=== PATIENT | male | born 1960 | race Caucasian/White ===

== ENCOUNTER 2019-09-25 11:32 | Emergency (ER) | payer OTHER ==
[~2019-09-25] VITALS: Ht 182.9 cm; Wt 97.5 kg
--- OUTSIDE RECORDS SUMMARY | ~2019-09-25 | XMS | Encounter Summary ---
Demographics + + + | Address | [address] | | | [place] [address] | + + + | Home Phone | | + + + | Preferred Language | Unknown | + + + | Marital Status | | + + + | Zoroastrianism Affiliation | 1027 | + + + | Race | Unknown | + + + | Ethnic Group | Unknown | + + + Author + + + | Author | [facility] | | | and [place] | + + + | Organization | [facility] | | | and [place] | + + + | Address | Unknown | + + + | Phone | Unavailable | + + + Support + + + + + | Name | Relationship | Address | Phone | + + + + + | Katt Alejandro | ECON | [address] | | | | | [place] | | | | | [place] | | | | | [address] | | + + + + + Care Team Providers + +------+ + | Care Nuclear Physicist Name | Role | Phone | + +------+ + | Jhonny Jimenez MD | PCP | | + +------+ + Reason for Visit Auth/Cert +--------+--------+ + + + + | Status | Reason | Specialty | Diagnoses / | Referred By | Referred To | | | | | Procedures | Contact | Contact | +--------+--------+ + + + + | | | | Diagnoses | | | | | | | Primary | | | | | | | osteoarthrit | | | | | | | is of right | | | | | | | knee | | | | | | | Primary | | | | | | | osteoarthrit | | | | | | | is of right | | | | | | | knee | | | | | | | [M17.11] | | | | | | | Procedures | | | | | | | [place] TOTAL | | | | | | | KNEE | | | | | | | ARTHROPLASTY | | | | | | | | | | | | | | ARTHROPLASTY | | | | | | | KNEE | | | +--------+--------+ + + + + Encounter Details +--------+ + + + + | Date | Type | Department | Care Team | Description | +--------+ + + + + | 09/07/ | Hospital | [facility] | Agus Steward, | Primary | | 2016 - | Encounter | [facility] | MD Juan DAVIS | osteoarthritis of | | | | [address] | [place] | right knee (Primary | | 09/10/ | | [place] [address] | [address] | Dx) | | 2015 | | [phone] | | | +--------+ + + + + Social History + +-------+ +--------+------+ | Tobacco Use | Types | Packs/Day | Years | Date | | | | | Used | | + +-------+ +--------+------+ | Never Smoker | | | | | + +-------+ +--------+------+ + +------+---+ + | Smokeless Tobacco: | Chew | | Quit: | | Former User | | | 05/15/19 | | | | | 16 | + +------+---+ + + + +---------+ + | Alcohol Use | Drinks/Week | oz/Week | Comments | + + +---------+ + | No | 0 Standard drinks | 0.0 | sober since 07/2013 | | | or equivalent | | | + + +---------+ + + + + | Sex Assigned at | Date Recorded | | | | + + + | Not on file | | + + + + + + + | Job Start Date | Occupation | Industry | + + + + | Not on file | Not on file | Not on file | + + + + + + + + | Travel History | Travel Start | Travel End | + + + + + + | No recent travel history available. | + + documented as of this encounter Last Filed Vital Signs + + + + + | Vital Sign | Reading | Time Taken | Comments | + + + + + | Blood Pressure | 117/59 | 09/11/2015 7:30 AM | | | | | PDT | | + + + + + | Pulse | 81 | 09/11/2015 7:30 AM | | | | | PDT | | + + + + + | Temperature | 36.6 C (97.9 F) | 09/11/2015 7:30 AM | | | | | PDT | | + + + + + | Respiratory Rate | 18 | 09/11/2015 7:30 AM | | | | | PDT | | + + + + + | Oxygen Saturation | 91% | 09/11/2015 7:30 AM | | | | | PDT | | + + + + + | Inhaled Oxygen | - | - | | | Concentration | | | | + + + + + | Weight | 108.9 kg (240 lb) | 2015 1:16 PM | | | | | PDT | | + + + + + | Height | 185.4 cm (6' 0.99") | 2015 1:16 PM | | | | | PDT | | + + + + + | Body Mass Index | 31.67 | 2015 1:16 PM | | | | | PDT | | + + + + + documented in this encounter Discharge Summaries Agus Steward MD - 09/10/2015 1:46 PM PDTFormatting of this note might be different fro m the original. DISCHARGE SUMMARY Pt. Name/Age/: Lebron Alejandro 55 y.o. 1960 Date of Admission: 2015 Date of Discharge: 09/11/2015 Admitting Physician: Agus Steward MD PCP: Jhonny Jimenez Discharging Physician: Agus Steward MD Primary Discharge Dx: S/p right total knee arthroplasty Secondary Discharge Dx: Patient Active Problem List Diagnosis Chronic hepatitis C without hepatic coma Essential hypertension Colon cancer screening Primary osteoarthritis of right knee Hospital Course, including Complications: patient tolerated the procedure well and was mobi lized on the first postop day His wound is clean and dry and dressings changed to aquacel. He feels he is able to do outp atient physical therapy without needing home health He is on xarelto and won't need nursing for inr checks and he declines cpm Will start outpatient PT with [facility] upon discharge. Walker and shower chair scrips Pertinent Diagnostic Info/Data: Medications Reconciled upon Discharge are: Discharge Medications New Medications Details docusate sodium 100 MG capsule Take 200 mg by mouth 2 times daily. aka: COLACE HYDROcodone-acetaminophen 10-325 mg per tablet Take 1-2 tablets by mouth every 4 hours as needed for Pain. aka: NORCO oxyCODONE 5 mg tablet Take 1 tablet by mouth every 3 hours as needed for Pain. aka: ROXICODONE rivaroxaban 10 mg tablet Take 1 tablet by mouth Daily. aka: CHIKA Mull[facility] [place] SUPPORTING STATEMENTS OF MEDICAL NECESSITY AND PROGNOSIS: - Pt has a mobility limitation that significantly impairs her ability to participate in one or more mobility-related activities of daily living (MRADLs) in customary locations in the home. Patient Safety: has demonstrated the ability to safely use the equipment listed below . Use of the equipment listed below sufficiently resolves the MRADL deficit when performed in home. Unchanged Medications Details lisinopril 40 MG tablet Take 40 mg by mouth Daily. aka: WILLIAM NUÑEZ Condition on Discharge: Stable Disposition: Patient was discharged to home Follow-Up Plans: 10 days Code Status/Advance Directive (Pertinent discussions/declarations): Full Code Electronically signed by: Agus Steward, 09/11/2015 7:17 [facility] documented in this en counter Discharge Instructions Instructions Greta Liu, PharmD - 09/11/2015Can shower with the waterproof dressing i n place Keep working on range of motion stretches best you can on your own before therapy starts ou tpatient Call with any concerns Do not exceed 4,000 mg of acetaminophen (Tylenol) per day. Hydrocodone-acetaminophen ([place] ) and Oxycodone-acetaminophen (Percocet) have 325 mg acetaminophen per tablet. Regular stre ngth acetaminophen is 325 mg per tablet. Extra strength has 500 mg per tablet. Do not consume alcohol while taking prescription pain mediations. If constipation arises, try docusate-senna one tablet twice daily; milk of magnesia 30 mL o nce each night; or Miralax one capful (17 grams) dissolved in half a cup of water once daily for 3 days. If constipation does not resolve within 3 days after discharge, contact the do ribeiro's office. documented in this encounter Medications at Time of Discharge + + + +---------+ + + | Medication | Sig | Dispensed | Refills | Start | End Date | | | | | | Date | | + + + +---------+ + + | lisinopril | Take 40 mg by mouth | | 0 | | | | (PRINIVIL,ZESTRIL) | Daily. | | | | | | 40 MG tablet | | | | | | + + + +---------+ + + | docusate sodium | Take 200 mg by mouth | 60 | 0 | 09/11/19 | | | (COLACE) 100 MG | 2 times daily. | capsule | | 16 | 9 | | capsule | | | | | | + + + +---------+ + + | | Take 1-2 tablets by | 60 | 0 | 09/11/19 | | | HYDROcodone-acetamin | mouth every 4 hours | tablet | | 16 | 6 | | ophen (NORCO) 10-325 | as needed for Pain. | | | | | | mg per tablet | | | | | | + + + +---------+ + + | Misc. Devices | SUPPORTING | 1 each | 0 | 09/11/19 | | | (RAUL) MISC | STATEMENTS OF | | | 16 | 9 | | | MEDICAL NECESSITY | | | | | | | AND PROGNOSIS:Pt has | | | | | | | a mobility | | | | | | | limitation that | | | | | | | significantly | | | | | | | impairs her ability | | | | | | | to participate in | | | | | | | one or more | | | | | | | mobility-related | | | | | | | activities of daily | | | | | | | living (MRADLs) in | | | | | | | customary locations | | | | | | | in the home. | | | | | | | Patient Safety: has | | | | | | | demonstrated the | | | | | | | ability to safely | | | | | | | use the equipment | | | | | | | listed below. Use | | | | | | | of the equipment | | | | | | | listed below | | | | | | | sufficiently | | | | | | | resolves the MRADL | | | | | | | deficit when | | | | | | | performed in home. | | | | | + + + +---------+ + + | oxyCODONE | Take 1 tablet by | 60 | 0 | 09/11/19 | | | (ROXICODONE) 5 mg | mouth every 3 hours | tablet | | 16 | 6 | | tablet | as needed for Pain. | | | | | + + + +---------+ + + | rivaroxaban | Take 1 tablet by | 12 | 0 | 09/11/19 | | | (XARELTO) 10 mg | mouth Daily. | tablet | | 16 | 6 | | tablet | | | | | | + + + +---------+ + + documented as of this encounter Progress Notes Greta Liu, PharmD - 09/11/2015 11:51 AM Berenice Alejandro is s/p TKA and discharged home today (09/11/2015) Taught AVS education to patient. Educated patient on new blood thinner and pain medications . I explained indication, how to take, possible side effects, when to contact physician, and monitor parameters. We discussed rivaroxaban: S/S clotting (stroke/DVt/PE), bleeding (bruising, bleeding, GI/ ), and when to seek medical attention. Rivaroxaban patient education handout given to nate edmond The patient was encouraged to ambulate often and to participate in PT. We discussed not to exceed 4,000 mg of acetaminophen per day. Patient was advised not to co nsume alcohol while taking opioid mediations. We discussed normal bowel movements should be about 1 to 2 per week, if constipation should arise patient may try senna-s, milk of mag or Miralax OTC. The patient verbalized understanding of the above and all questions were answered. Emma camacho will follow-up with patient in one to two business days. Patient was provided with a lesly nciled discharge medication list as part of their AVS instructions. Encouraged patient to sh are medication list with healthcare providers and keep list current. Grtea Morrissey PHARMD 09/11/2015 11:51 Agus Herrera MD - 09/10/2015 7:45 AM PDT Patient doing well Filed Vitals: 09/10/15 0716 BP: 118/67 Pulse: 81 Temp: 37.1 C (98.8 F) Resp: 16 I/O last 3 completed shifts: In: 3141 [P.O.:2070; I.V.:976; IV Piggyback:95] Out: 1600 [Urine:1600] Dressings changed Knee wound clean and dry Calves nontender Flex/ext feet well Recent Results (from the past 24 hour(s)) Basic Metabolic Panel Result Value Ref Range NA 135 (L) 136-149 mmol/L K 4.1 3.5-5.1 mmol/L CL 103 98-109 mmol/L CO2 27 24-31 mmol/L ANION GAP 5 3-16 mmol/L GLUCOSE 119 (H) 70-109 mg/dL BUN 17 7-18 mg/dL Creatinine, Serum/Plasma 0.81 0.60-1.30 mg/dL eGFR if not >60 >=60 mL/min/1.73m2 CALCIUM 8.0 (L) 8.3-10.5 mg/dL BUN/CREA 21.0 POD 2 s/p right TKA Continue Pt Agus Herrera MD - 09/09/2015 7:13 AM PDTFormatting of this note might be different from the orig inal. Patient with no pain or nausea Filed Vitals: 09/09/15 0326 BP: 114/61 Pulse: 81 Temp: 35.7 C (96.3 F) Resp: 20 I/O last 3 completed shifts: In: 2417 [P.O.:450; I.V.:1702; IV Piggyback:265] Out: 400 [Urine:400] On exam dressings intact and dry Some motor return at the foot Recent Results (from the past 24 hour(s)) Basic Metabolic Panel Result Value Ref Range NA 137 136-149 mmol/L K 4.5 3.5-5.1 mmol/L CL 104 98-109 mmol/L CO2 26 24-31 mmol/L ANION GAP 7 3-16 mmol/L GLUCOSE 150 (H) 70-109 mg/dL BUN 20 (H) 7-18 mg/dL Creatinine, Serum/Plasma 0.95 0.60-1.30 mg/dL eGFR if not >60 >=60 mL/min/1.73m2 CALCIUM 8.9 8.3-10.5 mg/dL BUN/CREA 21.1 Hemoglobin and Hematocrit Result Value Ref Range Hgb 13.8 13.5-18.0 g/dL Hct 41.5 40.0-51.0 % PoD 1 s/p right total knee arthroplasty Mobilize with pT docu mented in this encounter Plan of Treatment Not on filedocumented as of this encounter Procedures + +--------+ + + + | Procedure Name | Priori | Date/Time | Associated Diagnosis | Comments | | | ty | | | | + +--------+ + + + | HEMOGLOBIN AND | Routin | 09/11/2015 | | Results for this | | HEMATOCRIT | e | 5:31 AM | | procedure are in the | | | | PDT | | results section. | + +--------+ + + + | BASIC METABOLIC | Routin | 09/11/2015 | | Results for this | | PANEL | e | 5:31 AM | | procedure are in the | | | | PDT | | results section. | + +--------+ + + + | HEMOGLOBIN AND | Routin | 09/10/2015 | | Results for this | | HEMATOCRIT | e | 5:54 AM | | procedure are in the | | | | PDT | | results section. | + +--------+ + + + | BASIC METABOLIC | Routin | 09/10/2015 | | Results for this | | PANEL | e | 5:54 AM | | procedure are in the | | | | PDT | | results section. | + +--------+ + + + | HEMOGLOBIN AND | Routin | 09/09/2015 | | Results for this | | HEMATOCRIT | e | 5:26 AM | | procedure are in the | | | | PDT | | results section. | + +--------+ + + + | BASIC METABOLIC | Routin | 09/09/2015 | | Results for this | | PANEL | e | 5:26 AM | | procedure are in the | | | | PDT | | results section. | + +--------+ + + + | ARTHROPLASTY KNEE | | 2015 | Primary | | | | | 2:16 PM | osteoarthritis of | | | | | PDT | right knee | | + +--------+ + + + +---+--------+ | | | | | Specia | | | l | | | Needs | | | Boom | | | Burak | | | / | | | Jack | | | ad | | | Mahnaz | | | - | | | Amarilis | +---+--------+ documented in this encounter Results Hemoglobin and Hematocrit (09/11/2015 5:31 AM PDT) + + + + + + | Component | Value | Ref Range | Performed | Pathologist | | | | | At | Signature | + + + + + + | Hemoglobin | 13.0 (L) | 13.5 - 18.0 | [facility] | | | | | g/dL | [facility] | | | | | | [facility] | | | | | | [facility] - | | | | | | LABORATORY | | + + + + + + | Hematocrit | 38.9 (L) | 40.0 - 51.0 % | [facility] | | | | | | [facility] | [facility] | | | | | | [facility] - | | | | | | LABORATORY | | + + + + + + + + | Specimen | + + | Blood | + + + + + + + | Performing | Address | City/State/Zipcode | Phone Number | | Organization | | | | + + + + + | [facility] | [address] | [place] | [phone] | | [facility] | | [address] | | | - LABORATORY | | | | + + + + + Basic Metabolic Panel (09/11/2015 5:31 AM PDT) + + + + + + | Component | Value | Ref Range | Performed | Pathologist | | | | | At | Signature | + + + + + + | Na | 135 (L) | 136 - 149 | [facility] | | | | | mmol/L | [facility] | | | | | | MEDICAL | | | | | | CENTER - | | | | | | LABORATORY | | + + + + + + | K | 4.1 | 3.5 - 5.1 | [facility] | | | | | mmol/L | [facility] | | | | | | [facility] | | | | | | CENTER - | | | | | | LABORATORY | | + + + + + + | Cl | 101 | 98 - 109 mmol/L | [facility] | | | | | | [facility] | | | | | | [facility]ICAL | | | | | | C[facility] - | | | | | | LABORATORY | | + + + + + + | CO2 | 31 | 24 - 31 mmol/L | [facility] | | | | | | [facility] | | | | | | [facility] | | | | | | C[facility] - | | | | | | LABORATORY | | + + + + + + | Anion Gap | 3 | 3 - 16 mmol/L | [facility] | | | | | | [facility] | | | | | | [facility] | | | | | | C[facility] - | | | | | | LABORATORY | | + + + + + + | Glucose | 110 (H) | 70 - 109 mg/dL | [facility] | | | | | | [facility] | | | | | | [facility] | | | | | | C[facility] - | | | | | | LABORATORY | | + + + + + + | BUN | 11 | 7 - 18 mg/dL | [facility] | | | | | | [facility] | | | | | | [facility] | | | | | | [facility] - | | | | | | LABORATORY | | + + + + + + | Creatinine | 0.87 | 0.60 - 1.30 | [facility] | | | | | mg/dL | [facility] | | | | | | MEDICAL | | | | | | CENTER - | | | | | | LABORATORY | | + + + + + + | eGFR if not | >60Comment: GLOMERULAR | >=60 | [facility] | | | | FILTRATION | mL/min/1.73m2 | [facility] | | | [place] | RATE,ESTIMATED | | MEDICAL | | | | mL/min/1.68l5Tmhw than | | CENTER - | | | | 60 Chronic kidney | | LABORATORY | | | | disease,if found over a | | | | | | 3-month period.Less than | | | | | | 15 Kidney failureFor | | | | | | | | | | | | Americans,multiply the | | | | | | calculated GFR by 1.21. | | | | | | | | | | + + + + + + | Calcium | 8.4 | 8.3 - 10.5 | [facility] | | | | | mg/dL | [facility] | | | | | | MEDICAL | | | | | | CENTER - | | | | | | LABORATORY | | + + + + + + | BUN/Creatin | 12.6 | | [facility] | | | ine Ratio | | | [facility] | | | | | | MEDICAL | | | | | | CENTER - | | | | | | LABORATORY | | + + + + + + + + | Specimen | + + | Blood | + + + + + + + | Performing | Address | City/State/Zipcode | Phone Number | | Organization | | | | + + + + + | [facility] | [address] | [place] | [phone] | | [facility] | | [address] | | | - LABORATORY | | | | + + + + + Hemoglobin and Hematocrit (09/10/2015 5:54 AM PDT) + + + + + + | Component | Value | Ref Range | Performed | Pathologist | | | | | At | Signature | + + + + + + | Hemoglobin | 13.0 (L) | 13.5 - 18.0 | [facility] | | | | | g/dL | [facility] | | | | | [facility] | | | | | | C[facility] - | | | | | | LABORATORY | | + + + + + + | Hematocrit | 38.1 (L) | 40.0 - 51.0 % | [facility] | | | | | | [facility] | | | | | | MEDICAL | | | | | | CENTER - | | | | | | LABORATORY | | + + + + + + + + | Specimen | + + | Blood | + + + + + + + | Performing | Address | City/State/Zipcode | Phone Number | | Organization | | | | + + + + + | [facility] | [address] | [place] | [phone] | | [facility] | | [address] | | | - LABORATORY | | | | + + + + + Basic Metabolic Panel (09/10/2015 5:54 AM PDT) + + + + + + | Component | Value | Ref Range | Performed | Pathologist | | | | | At | Signature | + + + + + + | Na | 135 (L) | 136 - 149 | [facility] | | | | | mmol/L | [facility] | | | | | | MEDICAL | | | | | | CENTER - | | | | | | LABORATORY | | + + + + + + | K | 4.1 | 3.5 - 5.1 | [facility] | | | | | mmol/L | [facility] | | | | | | MEDICAL | | | | | | CENTER - | | | | | | LABORATORY | | + + + + + + | Cl | 103 | 98 - 109 mmol/L | [facility] | | | | | | [facility] | | | | | | MEDICAL | | | | | | CENTER - | | | | | | LABORATORY | | + + + + + + | CO2 | 27 | 24 - 31 mmol/L | [facility] | | | | | | [facility] | | | | | | [facility] | | | | | | CENTER - | | | | | | LABORATORY | | + + + + + + | Anion Gap | 5 | 3 - 16 mmol/L | [facility] | | | | | | [facility] | | | | | | MEDICAL | | | | | | CENTER - | | | | | | LABORATORY | | + + + + + + | Glucose | 119 (H) | 70 - 109 mg/dL | [facility] | | | | | | [facility] | | | | | | MEDICAL | | | | | | CENTER - | | | | | | LABORATORY | | + + + + + + | BUN | 17 | 7 - 18 mg/dL | [facility] | | | | | | [facility] | | | | | | MEDICAL | | | | | | CENTER - | | | | | | LABORATORY | | + + + + + + | Creatinine | 0.81 | 0.60 - 1.30 | [facility] | | | | | mg/dL | [facility] | | | | | | MEDICAL | | | | | | CENTER - | | | | | | LABORATORY | | + + + + + + | eGFR if not | >60Comment: GLOMERULAR | >=60 | [facility] | | | | FILTRATION | mL/min/1.73m2 | [facility] | | | [place] | RATE,ESTIMATED | | MEDICAL | | | | mL/min/1.06j6Seth than | | CENTER - | | | | 60 Chronic kidney | | LABORATORY | | | | disease,if found over a | | | | | | 3-month period.Less than | | | | | | 15 Kidney failureFor | | | | | | | | | | | | Americans,multiply the | | | | | | calculated GFR by 1.21. | | | | | | | | | | + + + + + + | Calcium | 8.0 (L) | 8.3 - 10.5 | [facility] | | | | | mg/dL | [facility] | | | | | | MED[facility] | | | | | | CENTER - | | | | | | LABORATORY | | + + + + + + | BUN/Creatin | 21.0 | | [facility] | | | ine Ratio | | | [facility] | | | | | | MEDICAL | | | | | | CENTER - | | | | | | LABORATORY | | + + + + + + + + | Specimen | + + | Blood | + + + + + + + | Performing | Address | City/State/Zipcode | Phone Number | | Organization | | | | + + + + + | [facility] | [address] | [place] | [phone] | | [facility] | | [address] | | | - LABORATORY | | | | + + + + + Hemoglobin and Hematocrit (09/09/2015 5:26 AM PDT) + +-------+ + + + | Component | Value | Ref Range | Performed | Pathologist | | | | | At | Signature | + +-------+ + + + | Hemoglobin | 13.8 | 13.5 - 18.0 | [facility] | | | | | g/dL | [facility] | | | | | | MEDICAL | | | | | | CENTER - | | | | | | LABORATORY | | + +-------+ + + + | Hematocrit | 41.5 | 40.0 - 51.0 % | [facility] | | | | | | [facility] | | | | | | MEDICAL | | | | | | CENTER - | | | | | | LABORATORY | | + +-------+ + + + + + | Specimen | + + | Blood | + + + + + + + | Performing | Address | City/State/Zipcode | Phone Number | | Organization | | | | + + + + + | [facility] | [address] | [place] | [phone] | | [facility] | | [address] | | | - LABORATORY | | | | + + + + + Basic Metabolic Panel (09/09/2015 5:26 AM PDT) + + + + + + | Component | Value | Ref Range | Performed | Pathologist | | | | | At | Signature | + + + + + + | Na | 137 | 136 - 149 | [facility] | | | | | mmol/L | [facility] | | | | | | MEDICAL | | | | | | CENTER - | | | | | | LABORATORY | | + + + + + + | K | 4.5 | 3.5 - 5.1 | [facility] | | | | | mmol/L | [facility] | | | | | | MEDICAL | | | | | | CENTER - | | | | | | LABORATORY | | + + + + + + | Cl | 104 | 98 - 109 mmol/L | [facility] | | | | | | [facility] | | | | | | MEDICAL | | | | | | CENTER - | | | | | | LABORATORY | | + + + + + + | CO2 | 26 | 24 - 31 mmol/L | [facility] | | | | | | [facility] | | [facility] | | | MEDICAL | | | | | | CENTER - | | | | | | LABORATORY | | + + + + + + | Anion Gap | 7 | 3 - 16 mmol/L | [facility] | | | | | | [facility] | | | | | | [facility]ICAL | | | | | | CENTER - | | | | | | LABORATORY | | + + + + + + | Glucose | 150 (H) | 70 - 109 mg/dL | [facility] | | | | | | [facility] | | | | | | MEDICAL | | | | | | CENTER - | | | | | | LABORATORY | | + + + + + + | BUN | 20 (H) | 7 - 18 mg/dL | [facility] | | | | | | [facility] | | | | | | MEDICAL | | | | | | CENTER - | | | | | | LABORATORY | | + + + + + + | Creatinine | 0.95 | 0.60 - 1.30 | [facility] | | | | | mg/dL | [facility] | | | | | | MEDICAL | | | | | | CENTER - | | | | | | LABORATORY | | + + + + + + | eGFR if not | >60Comment: GLOMERULAR | >=60 | [facility] | | | | FILTRATION | mL/min/1.73m2 | [facility] | | | [place] | RATE,ESTIMATED | | MEDICAL | | | | mL/min/1.97a5Txpn than | | CENTER - | | | | 60 Chronic kidney | | LABORATORY | | | | disease,if found over a | | | | | | 3-month period.Less than | | | | | | 15 Kidney failureFor | | | | | | | | | | | | Americans,multiply the | | | | | | calculated GFR by 1.21. | | | | | | | | | | + + + + + + | Calcium | 8.9 | 8.3 - 10.5 | [facility] | | | | | mg/dL | [facility] | | | | | | [facility] | | | | | | CENTER - | | | | | | LABORATORY | | + + + + + + | BUN/Creatin | 21.1 | | [facility] | | | ine Ratio | | | [facility] | | | | | | MEDICAL | | | | | | CENTER - | | | | | | LABORATORY | | + + + + + + + + | Specimen | + + | Blood | + + + + + + + | Performing | Address | City/State/Zipcode | Phone Number | | Organization | | | | + + + + + | [facility] | [address] | [place] | [phone] | | [facility] | | [address] | | | - LABORATORY | | | | + + + + + documented in this encounter Visit Diagnoses + + | Diagnosis | + + | Primary osteoarthritis of right knee - Primary Primary localized osteoarthrosis, | | lower leg | + + documented in this encounter Admitting Diagnoses + + | Diagnosis | + + | Primary osteoarthritis of right knee Primary localized osteoarthrosis, lower leg | + + documented in this encounter Administered Medications + +---------+ +------+-------+------+ | Medication Order | MAR | Action | Dose | Rate | Site | | | Action | Date | | | | + +---------+ +------+-------+------+ | ceFAZolin (ANCEF, KEFZOL) 1 g | New Bag | 09/09/19 | 1 g | 100 | | | in sodium chloride 0.9% 50 mL | | 16 8:21 | | mL/hr | | | IVPB 1 g, Intravenous, | | AM PDT | | | | | Administer over 30 Minutes, EVERY | | | | | | | 6 HOURS (4 times per day), First | | | | | | | dose on Mon09/08/15 at 2000, For | | | | | | | 3 doses, Start 6 hours after | | | | | | | previous dose. Last dose to be | | | | | | | given within 24 hours of surgery | | | | | | | end time. Activate system and mix | | | | | | | before use., Post-op/Phase II, | | | | | | | Indications: Surgical Prophylaxis | | | | | | + +---------+ +------+-------+------+ +---------+ +-----+-------+---+ | New Bag | 09/09/19 | 1 g | 100 | | | | 16 3:33 | | mL/hr | | | | AM PDT | | | | +---------+ +-----+-------+---+ | New Bag | 09/08/19 | 1 g | 100 | | | | 16 8:58 | | mL/hr | | | | PM PDT | | | | +---------+ +-----+-------+---+ +---+---+ | | | +---+---+ + +-------+ +--------+---+---+ | docusate sodium (COLACE) | Given | 09/11/19 | 200 mg | | | | capsule 200 mg 200 mg, Oral, 2 | | 16 8:03 | | | | | TIMES DAILY, First dose on Mon | | AM PDT | | | | | 09/08/15 at 2100, First line agent | | | | | | | for constipation, Post-op/Phase | | | | | | | II | | | | | | + +-------+ +--------+---+---+ +-------+ +--------+---+---+ | Given | 09/10/19 | 200 mg | | | | | 16 8:09 | | | | | | PM PDT | | | | +-------+ +--------+---+---+ | Given | 09/10/19 | 200 mg | | | | | 16 8:10 | | | | | | AM PDT | | | | +-------+ +--------+---+---+ +---+---+ | | | +---+---+ + +-------+ +---------+---+---+ | HYDROcodone-acetaminophen | Given | 09/11/19 | 2 | | | | (NORCO) 10-325 mg per tablet 1-2 | | 16 10:05 | tablets | | | | tablet 1-2 tablet, Oral, EVERY 4 | | AM PDT | | | | | HOURS PRN, Pain, Starting Tue | | | | | | | 09/08/15 at 1745, If ineffective | | | | | | | or not tolerated use Oxycodone if | | | | | | | ordered., Post-op/Phase II | | | | | | + +-------+ +---------+---+---+ +-------+ +---------+---+---+ | Given | 09/11/19 | 2 | | | | | 16 5:58 | tablets | | | | | AM PDT | | | | +-------+ +---------+---+---+ | Given | 09/11/19 | 2 | | | | | 16 2:13 | tablets | | | | | AM PDT | | | | +-------+ +---------+---+---+ +---+---+ | | | +---+---+ + +---------+ +---+-------+---+ | lactated ringers (LR) infusion | New Bag | 09/08/19 | | 100 | | | at 10-100 mL/hr, Intravenous, | | 16 4:55 | | mL/hr | | | CONTINUOUS, Starting 09/08/15 | | PM PDT | | | | | at 1330, TKO., Pre-op | | | | | | + +---------+ +---+-------+---+ +---------+ +--------+-------+---+ | New Bag | 09/08/19 | 1,000 | 100 | | | | 16 1:23 | mLs | mL/hr | | | | PM PDT | | | | +---------+ +--------+-------+---+ +---+---+ | | | +---+---+ + +---------+ +--------+-------+---+ | lactated ringers (LR) infusion | New Bag | 09/08/19 | 1,000 | 100 | | | at 100 mL/hr, Intravenous, FIXED | | 16 10:40 | mLs | mL/hr | | | VOLUME (see admin instruction), | | PM PDT | | | | | Starting 09/08/15 at 1815, | | | | | | | Saline lock IV when taking po and | | | | | | | after 2 liters in, Post-op/Phase | | | | | | | II | | | | | | + +---------+ +--------+-------+---+ +---+---+ | | | +---+---+ + +-------+ +-------+---+---+ | lisinopril (PRINIVMARITZA ZUNIGAL) | Given | 09/11/19 | 40 mg | | | | tablet 40 mg 40 mg, Oral, DAILY, | | 16 8:03 | | | | | First dose on Mon09/09/15 at | | AM PDT | | | | | 0900, Post-op/Phase II | | | | | | + +-------+ +-------+---+---+ +-------+ +-------+---+---+ | Given | 09/10/19 | 40 mg | | | | | 16 8:10 | | | | | | AM PDT | | | | +-------+ +-------+---+---+ | Given | 09/09/19 | 40 mg | | | | | 16 8:20 | | | | | | AM PDT | | | | +-------+ +-------+---+---+ +---+---+ | | | +---+---+ + +-------+ +------+---+---+ | morphine injection 2-8 mg 2-8 | Given | 09/10/19 | 4 mg | | | | mg, Intravenous, EVERY 2 HOURS | | 16 4:01 | | | | | PRN, Pain, Starting Mon09/08/15 | | PM PDT | | | | | at 1745, Slow IV push, not faster | | | | | | | than 2 mg/minute. If ineffective | | | | | | | or not tolerated, use | | | | | | | hydromorphone IV if ordered., | | | | | | | Post-op/Phase II | | | | | | + +-------+ +------+---+---+ +-------+ +------+---+---+ | Given | 09/10/19 | 4 mg | | | | | 16 11:34 | | | | | | AM PDT | | | | +-------+ +------+---+---+ | Given | 09/09/19 | 4 mg | | | | | 16 1:04 | | | | | | PM PDT | | | | +-------+ +------+---+---+ +---+---+ | | | +---+---+ + +-------+ +-------+---+---+ | oxyCODONE (ROXICODONE) tablet | Given | 09/10/19 | 10 mg | | | | 5-10 mg 5-10 mg, Oral, EVERY 3 | | 16 6:36 | | | | | HOURS PRN, Pain, Starting Tue | | PM PDT | | | | | 09/08/15 at 1745, If ineffective | | | | | | | or not tolerated use | | | | | | | hydromorphone if ordered., | | | | | | | Post-op/Phase II | | | | | | + +-------+ +-------+---+---+ +-------+ +-------+---+---+ | Given | 09/10/19 | 10 mg | | | | | 16 10:59 | | | | | | AM PDT | | | | +-------+ +-------+---+---+ | Given | 09/09/19 | 10 mg | | | | | 16 9:39 | | | | | | PM PDT | | | | +-------+ +-------+---+---+ +---+---+ | | | +---+---+ + +-------+ +-------+---+---+ | rivaroxaban (XARELTO) tablet 10 | Given | 09/11/19 | 10 mg | | | | mg 10 mg, Oral, DAILY, First | | 16 8:03 | | | | | dose on Mon09/09/15 at 0700, | | AM PDT | | | | | Post-op/Phase II | | | | | | + +-------+ +-------+---+---+ +-------+ +-------+---+---+ | Given | 09/10/19 | 10 mg | | | | | 16 8:10 | | | | | | AM PDT | | | | +-------+ +-------+---+---+ | Given | 09/09/19 | 10 mg | | | | | 16 6:34 | | | | | | AM PDT | | | | +-------+ +-------+---+---+ +---+---+ | | | +---+---+ documented in this encounter
--- OUTSIDE RECORDS SUMMARY | ~2019-09-25 | XMS | Encounter Summary ---
Demographics + + + | Address | [address] | | | [place] [address] | + + + | Home Phone | | + + + | Preferred Language | Unknown | + + + | Marital Status | | + + + | Moravian Affiliation | 1027 | + + + | Race | Unknown | + + + | Ethnic Group | Unknown | + + + Author + + + | Author | [facility] | | | and [place] | + + + | Organization | [facility] | | | and [place] | + + + | Address | Unknown | + + + | Phone | Unavailable | + + + Support + + + + + | Name | Relationship | Address | Phone | + + + + + | Katt lAejandro | ECON | [address] | | | | | [place] | | | | | [place] | | | | | [address] | | + + + + + Care Team Providers + +------+ + | Care Solar Pv Installer Name | Role | Phone | + +------+ + | Jhonny Jimenez MD | PCP | | + +------+ + Reason for Visit + + + | Reason | Comments | + + + | Medication Refill | | + + + Encounter Details +--------+ + + + + | Date | Type | Department | Care Team | Description | +--------+ + + + + | 11/10/ | Telephone | [facility] | Agus Steward, | Medication Refill | | 2015 | | ORTHOPEDIC SURGERY | [address] | | | | | [address] | [place], [place] | | | | | [place], [place] | [address] | | | | | [address] | | | | | | [phone] | | | +--------+ + + + [...] + + documented as of this encounter Plan of Treatment Not on filedocumented as of this encounter Visit Diagnoses Not on filedocumented in this encounter"
--- OUTSIDE RECORDS SUMMARY | ~2019-09-25 | XMS | Encounter Summary ---
Demographics + + + | Address | [address] | | | [place] [address] | + + + | Home Phone | | + + + | Preferred Language | Unknown | + + + | Marital Status | | + + + | Restorationist Affiliation | 1027 | + + + | Race | Unknown | + + + | Ethnic Group | Unknown | + + + Author + + + | Author | [facility] | | | and [place] | + + + | Organization | [facility] | | | [...] [place] | | | | | [address] | | + + + + + Care Team Providers + +------+ + | Care Batch Freezer Name | Role | Phone | + +------+ + | Jhonny Jimenez MD | PCP | | + +------+ + Encounter Details +--------+ + + + + | Date | Type | Department | Care Team | Description | +--------+ + + + + | 09/14/ | Hospital | [facility] | [facility], | Chronic hepatitis C | | 2015 | Encounter | [facility] | [address] | without hepatic coma | | | | [address] [place] | [place] [address] | (HCC) | | | | [place], [place] | [place], [place] | | | | | [address] | [address] | | | | | [phone] | | | +--------+ + + + + Social History + +-------+ +--------+------+ | Tobacco Use | Types | Packs/Day | Years | Date | | | | | Used | | + +-------+ +--------+------+ | Never Smoker | | | | | + +-------+ +--------+------+ + +------+---+---+ | Smokeless Tobacco: | Chew | | | | Current User | | | | + +------+---+---+ + + +---------+ + | Alcohol Use | Drinks/Week | oz/Week | Comments | + + +---------+ + | No | | | sober since 07/2013 | + + +---------+ + + + [...] + + documented as of this encounter Medications at Time of Discharge + + + +---------+--------+ + | Medication | Sig | Dispensed | Refills | Start | End Date | | | | | | Date | | + + + +---------+--------+ + | lisinopril | Take 40 mg by mouth | | 0 | | | | (PRINIVIL,ZESTRIL) | Daily. | | | | | | 40 MG tablet | | | | | | + + + +---------+--------+ + | tadalafil (CIALIS) | Take 20 mg by mouth | | 0 | | | | 20 MG tablet | as needed for | | | | 6 | | | Erectile | | | | | | | Dysfunction. | | | | | + + + +---------+--------+ + documented as of this encounter Progress Notes Gregoria Hawkins ARNP - 09/23/2014 9:24 AM PDT Quick Note: Please schedule appointment. Thank you Zach Adam ARNP - 09/16/2014 9:14 AM PDT Quick Note: Will follow up after procedure. Please schedule appointment when done with colonoscopy and received results of Fibrosure. Thank you documented in this encounter Plan of Treatment Not on filedocumented as of this encounter Procedures + +--------+ + + + | Procedure Name | Priori | Date/Time | Associated Diagnosis | Comments | | | ty | | | | + +--------+ + + + | SANCHO QUAL, SCREEN | Routin | 09/14/2014 | Chronic hepatitis | Results for this | | | e | 11:07 AM | C without hepatic | procedure are in the | | | | PDT | coma (HCC) | results section. | + +--------+ + + + | HEPATITIS A IGG.IGM | Routin | 09/14/2014 | Chronic hepatitis | Results for this | | | e | 11:07 AM | C without hepatic | procedure are in the | | | | PDT | coma (HCC) | results section. | + +--------+ + + + | HEPATITIS C, | Routin | 09/14/2014 | Chronic hepatitis | Results for this | | FIBROSURE PANEL | e | 11:07 AM | C without hepatic | procedure are in the | | | | PDT | coma (HCC) | results section. | + +--------+ + + + | [id number], | Routin | 09/14/2014 | Chronic hepatitis | Results for this | | TOTAL | e | 11:07 AM | C without hepatic | procedure are in the | | | | PDT | coma (HCC) | results section. | + +--------+ + + + | HEPATITIS C RNA, | Routin | 09/14/2014 | Chronic hepatitis | Results for this | | QUANT, NAAT | e | 11:07 AM | C without hepatic | procedure are in the | | | | PDT | coma (HCC) | results section. | + +--------+ + + + | IRON AND TRANSFERRIN | Routin | 09/14/2014 | Chronic hepatitis | Results for this | | | e | 11:07 AM | C without hepatic | procedure are in the | | | | PDT | coma (HCC) | results section. | + +--------+ + + + | MITOCHONDRIAL AB | Routin | 09/14/2014 | Chronic hepatitis | Results for this | | | e | 11:07 AM | C without hepatic | procedure are in the | | | | PDT | coma (HCC) | results section. | + +--------+ + + + | CERULOPLASMIN | Routin | 09/14/2014 | Chronic hepatitis | Results for this | | | e | 11:07 AM | C without hepatic | procedure are in the | | | | PDT | coma (HCC) | results section. | + +--------+ + + + | ALPHA FETOPROTEIN, | Routin | 09/14/2014 | Chronic hepatitis | Results for this | | TUMOR MARKER | e | 11:07 AM | C without hepatic | procedure are in the | | | | PDT | coma (HCC) | results section. | + +--------+ + + + | HEPATITIS B CORE AB, | Routin | 09/14/2014 | Chronic hepatitis | Results for this | | IGM | e | 11:07 AM | C without hepatic | procedure are in the | | | | PDT | coma (HCC) | results section. | + +--------+ + + + | HEPATITIS C | Routin | 09/14/2014 | Chronic hepatitis | Results for this | | GENOTYPING | e | 11:07 AM | C without hepatic | procedure are in the | | | | PDT | coma (HCC) | results section. | + +--------+ + + + | SMOOTH MUSCLE AB | Routin | 09/14/2014 | Chronic hepatitis | Results for this | | | e | 11:07 AM | C without hepatic | procedure are in the | | | | PDT | coma (HCC) | results section. | + +--------+ + + + | HEPATITIS B SURFACE | Routin | 09/14/2014 | Chronic hepatitis | Results for this | | AB | e | 11:07 AM | C without hepatic | procedure are in the | | | | PDT | coma (HCC) | results section. | + +--------+ + + + | HEPATITIS B SURFACE | Routin | 09/14/2014 | Chronic hepatitis | Results for this | | AG | e | 11:07 AM | C without hepatic | procedure are in the | | | | PDT | coma (HCC) | results section. | + +--------+ + + + | PROTIME INR | Routin | 09/14/2014 | Chronic hepatitis | Results for this | | | e | 11:07 AM | C without hepatic | procedure are in the | | | | PDT | coma (HCC) | results section. | + +--------+ + + + | CBC WITH | Routin | 09/14/2014 | Chronic hepatitis | Results for this | | DIFFERENTIAL | e | 11:07 AM | C without hepatic | procedure are in the | | | | PDT | coma (HCC) | results section. | + +--------+ + + + | FERRITIN | Routin | 09/14/2014 | Chronic hepatitis | Results for this | | | e | 11:07 AM | C without hepatic | procedure are in the | | | | PDT | coma (HCC) | results section. | + +--------+ + + + | COMPREHENSIVE | Routin | 09/14/2014 | Chronic hepatitis | Results for this | | METABOLIC PANEL | e | 11:07 AM | C without hepatic | procedure are in the | | | | PDT | coma (HCC) | results section. | + +--------+ + + + documented in this encounter Results Hepatitis C Genotyping (09/14/2014 11:07 AM PDT) + + + + + + | Component | Value | Ref Range | Performed | Pathologist | | | | | At | Signature | + + + + + + | HCV | See CommentsComment: | | REFERENCE | | | Genotype by | Type 1aHCV genotype was | | [facility] | | | PCR | determined by RT-PCR and | | | | | | ferrocene labelled | | | | | | probe.This assay detects | | | | | | and differentiates the | | | | | | 6 major HCV genotypes | | | | | | andtheir most common | | | | | | subtypes (1a, 1b, 2a/c, | | | | | | 2b, 3, 4, 5, 6).This | | | | | | test was developed and | | | | | | its performance | | | | | | characteristics | | | | | | determinedby [facility] | | | | | | Division of Laboratory | | | | | | Medicine. It has not | | | | | | beenapproved or cleared | | | | | | by the U.S. Food and | | | | | | Drug Administration. | | | | | | Thistest should not be | | | | | | regarded as | | | | | | investigational or for | | | | | | research use.Testing | | | | | | Performed: [facility], [address] | | | | | | [address] [place] | | | | | | [address] | | | | + + + + + + + + | Specimen | + + | Blood specimen | | (specimen) | + + + + + | Narrative | Performed At | + + + | Most Recent Viral Load Result (copies/mL): >[id number] Date of Viral | REFERENCE LAB | | Load Testing: >05/24/12 | [facility] | + + + + + + + + | Performing | Address | City/State/Zipcode | Phone Number | | Organization | | | | + + + + + | [facility] | [address] | [place] [address] | [phone] | + + + + + Hepatitis C RNA, Quant, NAAT (09/14/2014 11:07 AM PDT) + + + + + + | Component | Value | Ref Range | Performed | Pathologist | | | | | At | Signature | + + + + + + | HCV Viral | 6.8 (A) | NOTDET Log | REFERENCE | | | Load, log10 | | IU/mL | [facility] | | + + + + + + | HCV Viral | [id number] (A)Comment: | NOTDET IU/mL | REFERENCE | | | Load | Reportable range HCV RNA | | [facility] | | | | 1.2 to 8.0 Log IU/mL | | | | | | (15 to | | | | | | 100,000,000IU/mL). | | | | | | This assay was performed | | | | | | using the FDA approved | | | | | | Ave | | | | | | COBASAmpliPrep/MARILYNN | | | | | | TaqMan HCV Test, v2.0. | | | | | | The MARILYNN | | | | | | AmpliPrep/COBASTaqMan | | | | | | HCV Test, v2.0 is not | | | | | | intended for use as a | | | | | | screening test forthe | | | | | | presence of HCV in blood | | | | | | or blood | | | | | | products.Testing | | | | | | Performed: [facility], [address] | | | | | | [address], [place] | | | | | | [address] | | | | + + + + + + + + | Specimen | + + | Blood specimen | | (specimen) | + + + + + + + | Performing | Address | City/State/Zipcode | Phone Number | | Organization | | | | + + + + + | [facility] | [address] | [place] [address] | [phone] | + + + + + Smooth Muscle Ab (09/14/2014 11:07 AM PDT) + + + + + + | Component | Value | Ref Range | Performed | Pathologist | | | | | At | Signature | + + + + + + | Smooth | See CommentsComment: | NEG | REFERENCE | | | Muscle Ab | NegativeReference Range: | | [facility] | | | | <1:40Testing Performed: | | | | | | [facility], [address], | | | | | | [place] [address] | | | | + + + + + + + + | Specimen | + + | Blood specimen | | (specimen) | + + + + + + + | Performing | Address | City/State/Zipcode | Phone Number | | Organization | | | | + + + + + | [facility] | [address] | [place] [address] | [phone] | + + + + + Protime INR (09/14/2014 11:07 AM PDT) + + + + + + | Component | Value | Ref Range | Performed | Pathologist | | | | | At | Signature | + + + + + + | Prothrombin | 13.5 | 11.3 - 13.9 | [facility] | | | Time | | seconds | [facility] | | | | | | [facility]ICAL | | | | | | CENTER - | | | | | | LABORATORY | | + + + + + + | INR | 1.03Comment: Usual Oral | 0.90 - 1.10 | [facility] | | | | Anticoagulation Range: | | [facility] | | | | 2.0 - 3.0High | | MEDICAL | | | | Level Oral | | CENTER - | | | | Anticoagulation Range: | | LABORATORY | | | | 2.5 - 3.5 | | | | + + + + + + + + | Specimen | + + | Blood | + + + + + + + | Performing | Address | City/State/Zipcode | Phone Number | | Organization | | | | + + + + + | [facility] | [address] | [place] | [phone] | | [facility] | | [address] | | | - LABORATORY | | | | + + + + + Mitochrondrial Ab (09/14/2014 11:07 AM PDT) + + + + + + | Component | Value | Ref Range | Performed | Pathologist | | | | | At | Signature | + + + + + + | MITOCHONDRI | See CommentsComment: | NEG | REFERENCE | | | AL AB | NegativeReference range: | | [facility] | | | | <1:20Testing Performed: | | | | | | [facility], [address], | | | | | | [place] [address] | | | | + + + + + + + + | Specimen | + + | Blood specimen | | (specimen) | + + + + + + + | Performing | Address | City/State/Zipcode | Phone Number | | Organization | | | | + + + + + | [facility] | [address] | [place] [address] | [phone] | + + + + + Iron and Transferrin (09/14/2014 11:07 AM PDT) + +---------+ + + + | Component | Value | Ref Range | Performed | Pathologist | | | | | At | Signature | + +---------+ + + + | Iron | 171 (H) | 50 - 160 ug/dL | [facility] | | | | | | [facility] | | | | | | MEDICAL | | | | | | CENTER - | | | | | | LABORATORY | | + +---------+ + + + | TRANSFERRIN | 265.0 | 240.0 - 480.0 | [facility] | | | | | mg/dL | [facility] | | | | | | MEDICAL | | | | | | CENTER - | | | | | | LABORATORY | | + +---------+ + + + | TIBC | 371 | ug/dL | [facility] | | | | | | [facility] | | | | | | MEDICAL | | | | | | CENTER - | | | | | | LABORATORY | | + +---------+ + + + | % | 46.1 | % | [facility] | | | SATURATION | | | [facility] | | | | | | MEDICAL | | | | | | CENTER - | | | | | | LABORATORY | | + +---------+ + + + + + | Specimen | + + | Blood | + + + + + + + | Performing | Address | City/State/Zipcode | Phone Number | | Organization | | | | + + + + + | [facility] | [address] | [place] | [phone] | | [facility] | | [address] | | | - LABORATORY | | | | + + + + + Hepatitis B Surface Ag (09/14/2014 11:07 AM PDT) + + + + + + | Component | Value | Ref Range | Performed | Pathologist | | | | | At | Signature | + + + + + + | Hepatitis B | Non ReactiveComment: | NR | REFERENCE | | | Surface Ag | Testing Performed: [facility], | | [facility] | | | | [address], | | | | | | [place] [address] | | | | + + + + + + + + | Specimen | + + | Blood specimen | | (specimen) | + + + + + + + | Performing | Address | City/State/Zipcode | Phone Number | | Organization | | | | + + + + + | [facility] | [address] | [place] [address] | [phone] | + + + + + Hepatitis B Surface Ab (09/14/2014 11:07 AM PDT) + + + + + + | Component | Value | Ref Range | Performed | Pathologist | | | | | At | Signature | + + + + + + | Hepatitis B | 51.8Comment: <10.0 | mIU/mL | [facility] | | | Surface Ab | Non | | [facility] | | | | Rwwfxa98.0 or greater | | | | | | Indicates vaccine | | | | | | response or response to | | | | | | HBVinfection.Samples | | | | | | with a calculated value | | | | | | of 10 mIU/mL or greater | | | | | | are consideredreactive | | | | | | (protective) in | | | | | | accordance with the CDC | | | | | | guidelines.Testing | | | | | | Performed: [facility], [address] | | | | | | [address] [place] | | | | | | [address] | | | | + + + + + + + + | Specimen | + + | Blood specimen | | (specimen) | + + + + + + + | Performing | Address | City/State/Zipcode | Phone Number | | Organization | | | | + + + + + | [facility] | [address] | [place] [address] | [phone] | + + + + + Hepatitis B Core Ab, IgM (09/14/2014 11:07 AM PDT) + + + + + + | Component | Value | Ref Range | Performed | Pathologist | | | | | At | Signature | + + + + + + | Hepatitis B | Non ReactiveComment: | NR | REFERENCE | | | Core Ab | Testing Performed: [facility], | | [facility] | | | IgM | [address], | | | | | | [place] [address] | | | | + + + + + + + + | Specimen | + + | Blood specimen | | (specimen) | + + + + + + + | Performing | Address | City/State/Zipcode | Phone Number | | Organization | | | | + + + + + | [facility] | [address] | [place] [address] | [phone] | + + + + + Hepatitis A IGG.IGM (09/14/2014 11:07 AM PDT) + + + + + + | Component | Value | Ref Range | Performed | Pathologist | | | | | At | Signature | + + + + + + | Hepatitis A | Reactive (A)Comment: | NR | REFERENCE | | | Ab Total | Testing Performed: [facility], | | [facility] | | | | [address], | | | | | | [place] [address] | | | | + + + + + + | Hepatitis A | Non ReactiveComment: | NR | REFERENCE | | | Ab IgM | Testing Performed: [facility], | | [facility] | | | | [address] | | | | | | [place] [address] | | | | + + + + + + | Hepatitis | See CommentsComment: | | REFERENCE | | | Interpretat | Consistent with remote | | [facility] | | | ion: | past HAV | | | | | | infection.Testing | | | | | | Performed: [facility], [address] | | | | | | [address], [place] | | | | | | [address] | | | | + + + + + + + + | Specimen | + + | Blood specimen | | (specimen) | + + + + + + + | Performing | Address | City/State/Zipcode | Phone Number | | Organization | | | | + + + + + | [facility] | [address] | [place] [address] | [phone] | + + + + + Ferritin (09/14/2014 11:07 AM PDT) + +-------+ + + + | Component | Value | Ref Range | Performed | Pathologist | | | | | At | Signature | + +-------+ + + + | FERRITIN | 184 | 24 - 366 ng/mL | [facility] | | | | | [...] [facility] | [address] | [place] | [phone] | | [facility] | | [address] | | | - LABORATORY | | | | + + + + + Comprehensive Metabolic Panel (09/14/2014 11:07 AM PDT) + + + + + [...] + + + + | Cl | 105 | 98 - 109 mmol/L | [facility] | | | | | | [facility] | | | | | | MEDICAL | | | | | | CENTER - | | | | | | LABORATORY | | + + + + + + | CO2 | 29 | 24 - 31 mmol/L | [facility] | | | | | | [facility] | | | | | | MEDICAL | | | | | | CENTER - | | | | | | LABORATORY | | + + + + + + | Anion Gap | 1 (L) | 3 - 16 mmol/L | [facility] | | | | | | [facility] | | | | | | MEDICAL | | | | | | CENTER - | | | | | | LABORATORY | | + + + + + + | Glucose | 91 | 70 - 109 mg/dL | [facility] | | | | | | [facility] | | | | | | [facility] | | | | | | CENTER - | | | | | | LABORATORY | | + + + + + + | BUN | 15 | 7 - 18 mg/dL | [facility] | | | | | | [facility] | | | | | | MEDICAL | | | | | | CENTER - | | | | | | LABORATORY | | + + + + + + | Creatinine | 0.91 | 0.60 - 1.30 | [facility] | [...] | | | FILTRATION | mL/min/1.73m2 | [facility] | | | GREEK | RATE,ESTIMATED | | MEDICAL | | | | mL/min/1.84d6Kxxf than | | CENTER - | | [...] + + + + | Calcium | 9.2 | 8.3 - 10.5 | [facility] | | | | | mg/dL | [facility] | | | | | [facility] | | | | | | CENTER - | | | | | | LABORATORY | | + + + + + + | Albumin | 4.1 | 3.2 - 5.0 g/dL | [facility] | | | | | | [facility] | | | | | | MEDICAL | | | | | | CENTER - | | | | | | LABORATORY | | + + + + + + | Bilirubin | 1.0 | 0.1 - 1.5 mg/dL | [facility] | | | Total | | | [facility] | | | | | | MEDICAL | | | | | | CENTER - | | | | | | LABORATORY | | + + + + + + | Total | 6.9 | 6.0 - 7.8 g/dL | [facility] | | | Protein | | | [facility] | | | | | | MEDICAL | | | | | | CENTER - | | | | | | LABORATORY | | + + + + + + | AST | 34 | 10 - 42 U/L | [facility] | | | | | | [facility] | | | | | | MEDICAL | | | | | | CENTER - | | | | | | LABORATORY | | + + + + + + | ALT | 55 (H) | 6 - 45 U/L | [facility] | | | | | | [facility] | | | | | | [facility] | | | | | | CENTER - | | | | | | LABORATORY | | + + + + + + | Alkaline | 69 | 40 - 110 U/L | [facility] | | | Phosphatase | | | [facility] | | | | | | MEDICAL | | | | | | CENTER - | | | | | | LABORATORY | | + + + + + + | Globulin | 2.8 | g/dL | [facility] | | | | | | [facility] | | | | | | MEDICAL | | | | | | CENTER - | | | | | | LABORATORY | | + + + + + + | Albumin/Soco | 1.5 | | [facility] | | | bulin Ratio | | | [facility] | | | | | | MEDICAL | | | | | | CENTER - | | | | | | LABORATORY | | + + + + + + | BUN/Creatin | 16.5 | | [facility] | | | ine [...] + | [facility] | [address] | [place] | [phone] | | [facility] | | [address] | | | - LABORATORY | | | | + + + + + Ceruloplasmin (09/14/2014 11:07 AM PDT) + + + + + + | Component | Value | Ref Range | Performed | Pathologist | | | | | At | Signature | + + + + + + | CERULOPLASM | 23Comment: Testing | 7 - 220 mg/dL | [facility] | | | IN | Performed: [facility], [address] | | [facility] | | | | [address], [place] | | | | | | [address] | | | | + + + + + + + + | Specimen | + + | Blood specimen | | (specimen) | + + + + + + + | Performing | Address | City/State/Zipcode | Phone Number | | Organization | | | | + + + + + | [facility] | [address] | [place] [address] | [phone] | + + + + + CBC with Differential (09/14/2014 11:07 AM PDT) + +-------+ + + + | Component | Value | Ref Range | Performed | Pathologist | | | | | At | Signature | + +-------+ + + + | WBC | 5.8 | 4.0 - 11.0 K/uL | [facility] | | | | | | [facility] | | | | | | MEDICAL | | | | | | CENTER - | | | | | | LABORATORY | | + +-------+ + + + | RBC | 5.30 | 4.30 - 5.70 | [facility] | | | | | M/uL | [facility] | | | | | | MEDICAL | | | | | | CENTER - | | | | | | LABORATORY | | + +-------+ + + + | Hemoglobin | 16.4 | 13.5 - 18.0 | [facility] | | | | | g/dL | [facility] | | | | | | [facility] | | | | | | CENTER - | | | | | | LABORATORY | | + +-------+ + + + | Hematocrit | 50.3 | 40.0 - 51.0 % | [facility] | | | | | | [facility] | | | | | | MEDICAL | | | | | | CENTER - | | | | | | LABORATORY | | + +-------+ + + + | MCV | 94.9 | 83.0 - 101.0 fL | [facility] | | | | | | [facility] | | | | | | MEDICAL | | | | | | CENTER - | | | | | | LABORATORY | | + +-------+ + + + | MCH | 31.0 | 28.0 - 35.0 pg | [facility] | | | | | | [facility] | | | | | | MEDICAL | | | | | | CENTER - | | | | | | LABORATORY | | + +-------+ + + + | MCHC | 32.7 | 32.0 - 36.0 | [facility] | | | | | g/dL | [facility] | | | | | | MEDICAL | | | | | | CENTER - | | | | | | LABORATORY | | + +-------+ + + + | RDW-CV | 14.0 | <15.0 % | [facility] | | | | | | [facility] | | | | | | MEDICAL | | | | | | CENTER - | | | | | | LABORATORY | | + +-------+ + + + | Platelet | 160 | 140 - 440 K/uL | [facility] | | | Count | | | [facility] | | | | | | MEDICAL | | | | | | CENTER - | | | | | | LABORATORY | | + +-------+ + + + | MPV | 9.1 | fL | [facility] | | | | | | [facility] | | | | | | MEDICAL | | | | | | CENTER - | | | | | | LABORATORY | | + +-------+ + + + | % | 46.0 | 45.0 - 82.0 % | [facility] | | | Neutrophils | | | [facility] | | | | | | MEDICAL | | | | | | CENTER - | | | | | | LABORATORY | | + +-------+ + + + | % | 40.3 | 20.0 - 45.0 % | [facility] | | | Lymphocytes | | | [facility] | | | | | | MEDICAL | | | | | | CENTER - | | | | | | LABORATORY | | + +-------+ + + + | % Monocytes | 11.2 | 4.0 - 12.0 % | [facility] | | | | | | [facility] | | | | | | MEDICAL | | | | | | CENTER - | | | | | | LABORATORY | | + +-------+ + + + | % | 2.2 | 0.0 - 5.0 % | [facility] | | | Eosinophils | | | [facility] | | | | | | MEDICAL | | | | | | CENTER - | | | | | | LABORATORY | | + +-------+ + + + | % Basophils | 0.3 | 0.0 - 1.0 % | [facility] | | | | | | [facility] | | | | | | MEDICAL | | | | | | CENTER - | | | | | | LABORATORY | | + +-------+ + + + | Absolute | 2.70 | 1.80 - 8.50 | [facility] | | | Neutrophils | | K/uL | [facility] | | | | | | MEDICAL | | | | | | CENTER - | | | | | | LABORATORY | | + +-------+ + + + | Absolute | 2.30 | 0.60 - 3.20 | [facility] | | | Lymphocytes | | K/uL | [facility] | | | | | | MEDICAL | | | | | | CENTER - | | | | | | LABORATORY | | + +-------+ + + + | Absolute | 0.70 | 0.00 - 1.00 | [facility] | | | Monocytes | | K/uL | [facility] | | | | | | MEDICAL | | | | | | CENTER - | | | | | | LABORATORY | | + +-------+ + + + | Absolute | 0.10 | 0.00 - 0.40 | [facility] | | | Eosinophils | | K/uL | [facility] | | | | | | MEDICAL | | | | | | CENTER - | | | | | | LABORATORY | | + +-------+ + + + | Absolute | 0.00 | 0.00 - 0.10 | [facility] | | | Basophils | | K/uL | [facility] | | | | [...] [address] | [place] | [phone] | | [facility] | | [address] | | | - LABORATORY | | | | + + + + + SANCHO QUAL, SCREEN (09/14/2014 11:07 AM PDT) + + + + + + | Component | Value | Ref Range | Performed | Pathologist | | | | | At | Signature | + + + + + + | SANCHO Screen, | Negative | NEG | [facility] | | | Qual | | | [facility] | | + + + + + + | Interpretat | 0.5 | <1.0 U | [facility] | | | ion-SANCHO | | | [facility] | | + + + + + + + + | Specimen | + + | Blood specimen | | (specimen) | + + + + + + + | Performing | Address | City/State/Zipcode | Phone Number | | Organization | | | | + + + + + | [facility] | [address] | [place] [address] | [phone] | + + + + + [id number], Total (09/14/2014 11:07 AM PDT) + + + + + + | Component | Value | Ref Range | Performed | Pathologist | | | | | At | Signature | + + + + + + | A1 | 130Comment: Testing | 100 - 200 mg/dL | [facility]FER[facility] | | | ANTITRYPSIN | Performed: [facility], [address] | | [facility] | | | SER | [address], [place] | | | | | | [address] | | | | + + + + + + + + | Specimen | + + | Blood specimen | | (specimen) | + + + + + + + | Performing | Address | City/State/Zipcode | Phone Number | | Organization | | | | + + + + + | [facility] | [address] | [place] [address] | [phone] | + + + + + Alpha Fetoprotein, Tumor Marker (09/14/2014 11:07 AM PDT) + + + + + + | Component | Value | Ref Range | Performed | Pathologist | | | | | At | Signature | + + + + + + | AFP Tumor | 1.7Comment: Reference | 0.6 - 6.6 ng/mL | REFER[facility] | | | Marker | range applies to males | | [facility] | | | | and non | | | | | | females.Testing | | | | | | Performed: [place] | | | | | | [facility] | | | | | | [place], [address], | | | | | | [place] [address] | | | | + + + + + + + + | Specimen | + + | Blood specimen | | (specimen) | + + + + + + + | Performing | Address | City/State/Zipcode | Phone Number | | Organization | | | | + + + + + | [facility] | [address] | [place] [address] | [phone] | + + + + + Hepatitis C, Fibrosure Panel (09/14/2014 11:07 AM PDT) + + + + + + | Component | Value | Ref Range | Performed | Pathologist | | | | | At | Signature | + + + + + + | Fibrosis | 0.29 (H) | | REFERENCE | | | Score | | | [facility] | | + + + + + + | FIBROSURE | See Comments (A)Comment: | | REFERENCE | | | STAGE | F1, Portal fibrosis | | [facility] | | + + + + + + | Necroinflam | 0.33 (H) | | REFERENCE | | | mat | | | [facility] | | | Activity | | | | | | Score | | | | | + + + + + + | Necroinflam | See Comments (A)Comment: | | REFERENCE | | | mat | A1, Minimal activity | | [facility] | | | Activity | | | | | | Grade | | | | | + + + + + + | Alpha | 257 | mg/dL | REFERENCE | | | 2-Macroglob | | | [facility] | | | Winsome shawn | | | | | + + + + + + | Haptoglobin | 112 | mg/dL | REFERENCE | | | | | | [facility] | | + + + + + + | Apolipo | 172 | mg/dL | REFERENCE | | | protein A1 | | | [facility] | | + + + + + + | BILIRUBIN, | 0.7 | mg/dL | REFERENCE | | | TOTAL | | | [facility] | | + + + + + + | Gamma | 18 | IU/L | REFERENCE | | | Glutamyl | | | [facility] | | | Transferase | | | | | + + + + + + | ALT (SGPT) | 57 (H) | IU/L | REFERENCE | | | (REF) | | | [facility] | | + + + + + + | Interpretat | See CommentsComment: | | REFERENCE | | | ion | Quantitative results of | | [facility] | | | | 6 biochemical tests are | | | | | | analyzed usinga | | | | | | computational algorithm | | | | | | to provide a | | | | | | quantitative | | | | | | surrogatemarker | | | | | | (0.0-1.0) for liver | | | | | | fibrosis (METAVIR F0-F4) | | | | | | and | | | | | | fornecroinflammatory | | | | | | activity (METAVIR | | | | | | A0-A3).Fibrosis Scoring: | | | | | | <0.21 = | | | | | | Stage F0 - No fibrosis | | | | | | 0.21 - 0.27 = | | | | | | Stage F0 - F1 0.27 | | | | | | - 0.31 = Stage F1 - | | | | | | Portal fibrosis | | | | | | 0.31 - 0.48 = Stage F1 - | | | | | | F2 0.48 - 0.58 = | | | | | | Stage F2 - Bridging | | | | | | fibrosis with few septa | | | | | | 0.58 - 0.72 = | | | | | | Stage F3 - Bridging | | | | | | fibrosis with many septa | | | | | | 0.72 - 0.74 = | | | | | | Stage F3 - F4 | | | | | | >0.74 = Stage F4 - | | | | | | CirrhosisNecroinflamm | | | | | | Activity Scoring: | | | | | | <0.17 = Grade | | | | | | A0 - No Activity | | | | | | 0.17 - 0.29 = Grade A0 - | | | | | | A1 0.29 - 0.36 = | | | | | | Grade A1 - Minimal | | | | | | activity 0.36 - | | | | | | 0.52 = Grade A1 - A2 | | | | | | 0.52 - 0.60 = Grade | | | | | | A2 - Moderate activity | | | | | | 0.60 - 0.62 = | | | | | | Grade A2 - A3 | | | | | | >0.62 = Grade A3 - | | | | | | Severe activity | | | | + + + + + + | Limitations | See CommentsComment: The | | REFERENCE | | | : | negative predictive | | [facility] | | | | value of a Fibrotest | | | | | | score <0.31 (absence | | | | | | ofclinically significant | | | | | | fibrosis) was 85% when | | | | | | compared to liver | | | | | | biopsyin 1,270 HCV | | | | | | infected patients with a | | | | | | 38% prevalence of | | | | | | significantliver | | | | | | fibrosis (F2, 3 or 4). | | | | | | The positive predictive | | | | | | value of a Fibro-test | | | | | | score >0.48 (F2, 3, 4) | | | | | | was 61% in that same | | | | | | patient cohort. | | | | | | HCVFibroSURE is not | | | | | | recommended in patients | | | | | | with Gilbert Disease, | | | | | | acutehemolysis (e.g. HCV | | | | | | ribavirin therapy | | | | | | mediated hemolysis) | | | | | | acute hepa-titis of the | | | | | | liver, extra-hepatic | | | | | | cholestasis, transplant | | | | | | patients,and/or renal | | | | | | insufficiency patients. | | | | | | Any of these clinical | | | | | | situationsmay lead to | | | | | | inaccurate quantitative | | | | | | predictions of fibrosis | | | | | | andnecroinflammatory | | | | | | activity in the liver. | | | | + + + + + + | Comment | See CommentsComment: | | REFERENCE | | | | This test was developed | | [facility] | | | | and its performance | | | | | | characteristics | | | | | | determinedby [facility]. It | | | | | | has not been cleared or | | | | | | approved by the Food | | | | | | and DrugAdministration. | | | | | | The FDA has determined | | | | | | that such clearance | | | | | | orapproval is not | | | | | | necessary.For questions | | | | | | regarding this report | | | | | | please contact customer | | | | | | serviceat | | | | | | .Testing | | | | | | Performed: [facility] | | | | | | [address] | | | | | | [place], [place] | | | | | | [address] | | | | + + + + + + + + | Specimen | + + | Blood specimen | | (specimen) | + + + + + + + | Performing | Address | City/State/Zipcode | Phone Number | | Organization | | | | + + + + + | [facility] | [address] | [place] [address] | [phone] | + + + + + documented in this encounter Visit Diagnoses + + | Diagnosis | + + | Chronic hepatitis C without hepatic coma (HCC) | + + documented in this encounter"
--- OUTSIDE RECORDS SUMMARY | ~2019-09-25 | XMS | Encounter Summary ---
Demographics + + + | Address | [address] | | | [place] [address] | + + + | Home Phone | | + + + | Preferred Language | Unknown | + + + | Marital Status | | + + + | Advent Affiliation | 1027 | + + + | Race | Unknown | + + + | Ethnic Group | Unknown | + + + Author + + + | Author | [facility] | | | and [place] | + + + | Organization | [facility] | | | and [...] [place] | | | | | [address] | | + + + + + Care Team Providers + +------+ + | Care Glass Bender Name | Role | Phone | + +------+ + | Jhonny Jimenez MD | PCP | | + +------+ + Encounter Details +--------+ + + + + | Date | Type | Department | Care Team | Description | +--------+ + + + + | 09/22/ | Hospital | [facility] | Agus Steward, | Left shoulder pain | | 2015 | Encounter | [facility] | MD [address] [facility] | | | | | [address] [place] | [place], [place] | | | | | [place], [place] | [address] | | | | | [address] | | | | | | [phone] | | | +--------+ + + + [...] +---------+--------+ + documented as of this encounter Plan of Treatment Not on filedocumented as of this encounter Procedures + +--------+ + + + | Procedure Name | Priori | Date/Time | Associated Diagnosis | Comments | | | ty | | | | + +--------+ + + + | XR SHOULDER LEFT 2 + | Routin | 09/22/2014 | Left shoulder pain | Results for this | | VW | e | 1:47 PM | | procedure are in the | | | | PDT | | results section. | + +--------+ + + + documented in this encounter Results XR Shoulder Left 2 + Vw (09/22/2014 1:47 PM PDT) + + | Specimen | + + | | + + + + + | Narrative | Performed At | + + + | EXAM: XR SHOULDER LEFT 2 + VW dated 09/22/2014 1:42 PM | [facility] | | HISTORY:left shoulder pain COMPARISON: None. FINDINGS: 2 views | [facility] | | of left shoulder. There are mild degenerative changes in the | [facility] | | glenohumeral joint. This includes a small amount of osseous | - IMAGING | | irregularity along the inferior glenoid. Mild to moderate | | | hypertrophic changes in the acromion is a joint. No definite acute | | | osseous abnormalities. The soft tissues are unremarkable. | | | IMPRESSION - Degenerative changes. Dictated and Signed by: | | | Micah Anguiano MD Electronically signed: 09/22/2014 3:11 PM | | + + + + + | Procedure Note | + + | Gabe, Rad Results In - 09/22/2014 3:14 PM PDT EXAM: XR SHOULDER LEFT 2 + VW dated | | 09/22/2014 1:42 PMHISTORY:left shoulder painCOMPARISON: None.FINDINGS: 2 views of left | | shoulder. There are mild degenerative changes in theglenohumeral joint. This includes | | a small amount of osseous irregularity alongthe inferior glenoid. Mild to moderate | | hypertrophic changes in the acromion kevan joint. No definite acute osseous | | abnormalities. The soft tissues areunremarkable.IMPRESSION -Degenerative | | changes.Dictated and Signed by: Micah Anguiano MD Electronically signed: 09/22/2014 | | 3:11 PM | |the inferior glenoid. Mild to moderate hypertrophic changes in the acromion is | |a joint. No definite acute osseous abnormalities. The soft tissues are | |unremarkable. | | | |IMPRESSION - | | | |Degenerative changes. | | | | | |Dictated and Signed by: Micah Anguiano MD | | Electronically signed: 09/22/2014 3:11 PM | + + + + + + + | Performing | Address | City/State/Zipcode | Phone Number | | Organization | | | | + + + + + | [facility] | [address] | [place] | [phone] | | [facility] | | [address] | | | - IMAGING | | | | + + + + + documented in this encounter Visit Diagnoses + + | Diagnosis | + + | Left shoulder pain Pain in joint, shoulder region | + + documented in this encounter"
--- OUTSIDE RECORDS SUMMARY | ~2019-09-25 | XMS | Encounter Summary ---
Demographics + + + | Address | [address] | | | [place] [address] | + + + | Home Phone | | + + + | Preferred Language | Unknown | + + + | Marital Status | | + + + | Temple Affiliation | 1027 | + + + | Race | Unknown | + + + | Ethnic Group | Unknown | + + + Author + + + | Author | [facility] | | | and [place] | + + + | Organization | [facility] | | | and [...] [place] | | | | | [address] | | + + + + + Care Team Providers + +------+ + | Care Grain Sacker Name | Role | Phone | + +------+ + PCP | Unavailable | + +------+ + Encounter Details +--------+ + + + + | Date | Type | Department | Care Team | Description | +--------+ + + + + | 02/18/ | Hospital | [facility] | | | | 1998 | Encounter | MED CTR GENER[facility] OP | | | | | | CONV DEPT [address] | | | | | | [place], | | | | | | [place] [address] | | | | | | [phone] | | | +--------+ + + + + Social History + +-------+ +--------+------+ | Tobacco Use | Types | Packs/Day | Years | Date | | | | | Used | | + +-------+ +--------+------+ | Never Assessed | | | | | + +-------+ +--------+------+ + + + | Sex Assigned at [...]
--- OUTSIDE RECORDS SUMMARY | ~2019-09-25 | XMS | Encounter Summary ---
Demographics + + + | Address | [address] | | | [place] [address] | + + + | Home Phone | | + + + | Preferred Language | Unknown | + + + | Marital Status | | + + + | Sikh Affiliation | 1027 | + + + | Race | Unknown | + + + | Ethnic Group | Unknown | + + + Author + + + | Author | [facility] | | | and [place] | + + + | Organization | [facility] | | | [...] [place] | | | | | [address] | | + + + + + Care Team Providers + +------+ + | Care Trading Analyst Name | Role | Phone | + +------+ + PCP | Unavailable | + +------+ + Encounter Details +--------+ + + + + | Date | Type | Department | Care Team | Description | +--------+ + + + + | 12/24/ | Hospital | [facility] | | Closed Fracture of | | 2005 - | Encounter | [facility] [address] | | Unspecified Part of | | | | [address] | | Neck of Femur (HCC) | | 12/27/ | | [place], [place] | | | | 2005 | | [address] | | | | | | [phone] | | | +--------+ + + + [...] filedocumented as of this encounter Visit Diagnoses + + | Diagnosis | + + | Closed fracture of unspecified part of neck of femur | + + documented in this encounter"
--- OUTSIDE RECORDS SUMMARY | ~2019-09-25 | XMS | Encounter Summary ---
Demographics + + + | Address | [address] | | | [place] [address] | + + + | Home Phone | | + + + | Preferred Language | Unknown | + + + | Marital Status | | + + + | Moravian Affiliation | 1027 | + + + | Race | Unknown | + + + | Ethnic Group | Unknown | + + + Author + + + | Author | [facility] | | | and [place] | + + + | Organization | [facility] | | | [...] [place] | | | | | [address] | | + + + + + Care Team Providers + +------+ + | Care Hand Lacer Name | Role | Phone | + +------+ + PCP | Unavailable | + +------+ + Encounter Details +--------+ + + + + | Date | Type | Department | Care Team | Description | +--------+ + + + + | 01/27/ | Hospital | [facility] | | | | 1998 | Encounter | MED CTR GENERIC OP | | | | | | CONV DEPT [address] | | | | | | [place], | | | | | | [place] [address] | | | | | | [phone] | | | +--------+ + + + [...]
--- OUTSIDE RECORDS SUMMARY | ~2019-09-25 | XMS | Encounter Summary ---
Demographics + + + | Address | [address] | | | [place] [address] | + + + | Home Phone | | + + + | Preferred Language | Unknown | + + + | Marital Status | | + + + | Alevism Affiliation | 1027 | + + + | Race | Unknown | + + + | Ethnic Group | Unknown | + + + Author + + + | Author | [facility] | | | and [place] | + + + | Organization | [facility] | | | [...] [place] | | | | | [address] | | + + + + + Care Team Providers + +------+ + | Care Rope Making Machine Operator Name | Role | Phone | + +------+ + PCP | Unavailable | + +------+ + Encounter Details +--------+ + + + + | Date | Type | Department | Care Team | Description | +--------+ + + + + | 01/27/ | Hospital | [facility] | | | | 1998 | Encounter | MED CTR GENERIC OP | | | | | | CONV DEPT [address] | | | | | | [place], | | | | | | [place] [address] | | | | | | [phone] | | | +--------+ + + + [...]
--- OUTSIDE RECORDS SUMMARY | ~2019-09-25 | XMS | Encounter Summary ---
Demographics + + + | Address | [address] | | | [place] [address] | + + + | Home Phone | | + + + | Preferred Language | Unknown | + + + | Marital Status | | + + + | Bahai Affiliation | 1027 | + + + | Race | Unknown | + + + | Ethnic Group | Unknown | + + + Author + + + | Author | [facility] | | | and [place] | + + + | Organization | [facility] | | | [...] [place] | | | | | [address] | | + + + + + Care Team Providers + +------+ + | Care Registered Nurse Teacher Name | Role | Phone | + +------+ + | Jhonny Jimenez MD | PCP | | + +------+ + Reason for Referral Evaluate & Treat (Routine) +--------+ + + + + + | Status | Reason | Specialty | Diagnoses / | Referred By | Referred To | | | | | Procedures | Contact | Contact | +--------+ + + + + + | Closed | Specialty | Gastroenterol | Diagnoses | | [place], | | | Services | ogy | Special | Sh[place]uth[place], | MD Blil | | | Required | | screening | [place], | [address] | | | | | for | [employer] [address] | [place], | | | | | malignant | [place], [place] | [place] [address] | | | | | neoplasms, | [address] [place] | Phone: | | | | | colon | [place], [place] | [phone] | | | | | Procedures | [address] | Fax: | | | | | [place] | Phone: | [phone] | | | | | COLONOSCOPY | [phone] | | | | | | FLX DX | Fax: | | | | | | W/COLLJ SPEC | [phone] | | | | | | WHEN PFRMD | | | | | | | [place] | | | | | | | COLONOSCOPY | | | | | | | W/BIOPSY | | | | | | | SINGLE/MULTI | | | | | | | PLE [place] | | | | | | | COLSC FLX | | | | | | | W/RMVL OF | | | | | | | TUMOR POLYP | | | | | | | LESION SNARE | | | | | | | TQ | | | +--------+ + + + + + Encounter Details +--------+ + + + + | Date | Type | Department | Care Team | Description | +--------+ + + + + | 09/09/ | Orders Only | [facility] [place] | [place], | Special screening | | 2015 | | GASTROENTEROLOGY | [place] [address] | for malignant | | | | [address] [place] | [place], [place] [address] | neoplasms, colon | | | | [address] [place], [place] | [place], [place] | (Primary Dx) | | | | [address] | [address] | | | | | [phone] | | | +--------+ + + + [...] as of this encounter Plan of Treatment + + +--------+ + + | Name | Type | Priori | Associated Diagnoses | Order Schedule | | | | ty | | | + + +--------+ + + | Ambulatory referral | Outpatient | Routin | Special screening | Expected: | | to Gastroenterology | Referral | e | for malignant | 10/02/2014, Expires: | | [place] | | | neoplasms, colon | 09/09/2015 | + + +--------+ + + documented as of this encounter Visit Diagnoses + + | Diagnosis | + + | Special screening for malignant neoplasms, colon - Primary | + + documented in this encounter"
--- OUTSIDE RECORDS SUMMARY | ~2019-09-25 | XMS | Encounter Summary ---
Demographics + + + | Address | [address] | | | [place] [address] | + + + | Home Phone | | + + + | Preferred Language | Unknown | + + + | Marital Status | | + + + | Mormonism Affiliation | 1027 | + + + | Race | Unknown | + + + | Ethnic Group | Unknown | + + + Author + + + | Author | [facility] | | | and [place] | + + + | Organization | [facility] | | | [...] [place] | | | | | [address] | | + + + + + Care Team Providers + +------+ + | Care Choirmaster Name | Role | Phone | + +------+ + | Jhonny Jimenez MD | PCP | | + +------+ + Reason for Referral Diagnostic/Screening (Routine) +--------+--------+ + + + + | Status | Reason | Specialty | Diagnoses / | Referred By | Referred To | | | | | Procedures | Contact | Contact | +--------+--------+ + + + + | Closed | | Radiology | Diagnoses | Bin, | [facility] | | | | | Left | Agus Wong MD | [address] | | | | | shoulder | [address] | [place], | | | | | pain | [place] | [place] | | | | | Procedures | [place] | [address] | | | | | MRI Shoulder | [address] | Phone: | | | | | Left wo | Phone: | [phone] | | | | | Contrast | [phone] | Fax: | | | | | | Fax: | [phone] | | | | | | [phone] | | +--------+--------+ + + + + Reason for Visit Diagnostic/Screening (Routine) +--------+--------+ + + + + | Status | Reason | Specialty | Diagnoses / | Referred By | Referred To | | | | | Procedures | Contact | Contact | +--------+--------+ + + + + | Closed | | Radiology | Diagnoses | Bin, | [facility] | | | | | Left | Agus Wong MD | [address] | | | | | shoulder | [address] | [place], | | | | | pain | [place] | [place] | | | | | Procedures | [place], [place] | [address] | | | | | MRI Shoulder | [address] | Phone: | | | | | Left wo | Phone: | [phone] | | | | | Contrast | [phone] | Fax: | | | | | | Fax: | [phone] | | | | | | [phone] | | +--------+--------+ + + + + Encounter Details +--------+ + + + + | Date | Type | Department | Care Team | Description | +--------+ + + + + | 10/10/ | Hospital | [facility] | Agus Steward, | Left shoulder pain | | 2015 | Encounter | MED CTR MRI [address] | | | | | [place], | [place], [place] | | | | | [place] [address] | [address] | | | | | [phone] | | | +--------+ + + + [...] | + +--------+ + + + | MRI SHOULDER LEFT WO | Routin | 10/10/2014 | Left shoulder pain | Results for this | | CONTRAST | e | 12:26 PM | | procedure are in the | | | | PDT | | results section. | + +--------+ + + + documented in this encounter Results MRI Shoulder Left wo Contrast (10/10/2014 12:26 PM PDT) + + | Specimen | + + | | + + + + + | Narrative | Performed At | + + + | MRI SHOULDER LEFT WO CONTRAST. 10/10/2014 11:56 AM HISTORY: | [facility] | | EVALUATE FOR ROTATOR CUFF TEAR. COMPARISON: Left shoulder x-ray | [facility] | | 09/22/2014 TECHNIQUE: [facility]ipl[facility] | | left shoulder were obtained without intra-articular contrast. | - IMAGING | | FINDINGS: Degenerative change noted at the acromioclavicular joint, | | | with pannus formation, with contouring of the anterior aspect of the | | | supraspinatus muscle by spurring at the distal acromion. There is a | | | type II acromion, with some lateral downsloping. Increased fluid is | | | seen within the joint capsule, compatible with small effusion. No | | | significant fluid collection is seen in the subacromial/subdeltoid | | | bursa. Trace fluid seen in the subcoracoid bursa. There is | | | thickening and heterogeneous signal change in the supraspinatus | | | tendon, compatible with mucoid degeneration. Irregularity of the | | | fibers at the footplate of the supraspinatus may represent | | | partial-thickness articular surface tear. Mild thickening and | | | irregularity of the superior fibers of the infraspinatus tendon are | | | suggestive of mucoid degeneration, without definite evidence of | | | discrete tear. Subcortical cystic change seen at the proximal | | | humerus underlying the insertion of the infraspinatus tendon. The | | | teres minor tendon is within normal limits. The subscapularis | | | tendon appears intact, although with mild signal change distally, as | | | might be seen with tendinosis. The transverse humeral ligament | | | appears attenuated, and may be torn at the medial margin. There | | | is a appearance of flattening and splitting of the fibers of the | | | intra-articular portion of the long head of the biceps tendon. There | | | is partial medial subluxation of the proximal portion of the long | | | head of the biceps tendon in the superior aspect of the bicipital | | | groove. There is no evidence of muscular atrophy or signal change to | | | suggest denervation in the rotator cuff muscles. There is an | | | anterior to posterior tear of the superior labrum, combined with | | | degenerative fraying and fragmentation at the anterior aspect of the | | | superior labrum extending into the superior aspect of the anterior | | | labrum. There is some thickening of the inferior glenohumeral | | | ligament. There is appearance suspicious for chondromalacia of the | | | inferior aspect of the glenoid. Thinning of the cartilage is noted | | | at the inferior aspect of the humeral head. No bone marrow edema. | | | The overlying soft tissues are unremarkable. IMPRESSION - Mucoid | | | degeneration of the supraspinatus tendon with irregularity of the | | | fibers of the footplate of the supraspinatus suggestive of | | | partial-thickness articular surface tear. Appearance of mucoid | | | degeneration of the superior fibers of the infraspinatus tendon. | | | Signal change distally in the subscapularis tendon suggestive of | | | tendinosis. Attenuation of the transverse humeral ligament, with a | | | possible tear of the medial transverse humeral ligament. | | | Appearance of flattening and splitting of the intra-articular portion | | | of the long head of the biceps tendon with partial medial subluxation | | | of the proximal portion of the long head of the biceps tendon at the | | | superior aspect of the bicipital groove. Anterior to posterior | | | tear of the superior labrum, with degenerative fraying and | | | fragmentation at the anterior aspect of the superior labrum extending | | | into the superior aspect of the anterior labrum. Thickening of | | | the inferior glenohumeral ligament. 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 Dictated and Signed by: | | | Marcus Grimes MD Electronically signed: 10/10/2014 4:16 PM | | + + + + + | Procedure Note | + + | Gabe, Rad Results In - 10/10/2014 4:19 PM PDT MRI SHOULDER LEFT WO CONTRAST. | | 10/10/2014 11:56 AMHISTORY: EVALUATE FOR ROTATOR CUFF TEAR.COMPARISON: Left shoulder | | x-ray 09/22/2014TECHNIQUE: Multiplanar, multisequence MRI images of the left shoulder | | wereobtained without intra-articular contrast.FINDINGS:Degenerative change noted at the | | acromioclavicular joint, with pannus formation,with contouring of the anterior aspect of | | the supraspinatus muscle by spurringat the distal acromion.There is a type II acromion, | | with some lateral downsloping.Increased fluid is seen within the joint capsule, | | compatible with smalleffusion.No significant fluid collection is seen in the | | subacromial/subdeltoid bursa. Trace fluid seen in the subcoracoid bursa.There is | | thickening and heterogeneous signal change in the supraspinatus tendon,compatible with | | mucoid degeneration. Irregularity of the fibers at thefootplate of the supraspinatus | | may represent partial-thickness articular surfacetear.Mild thickening and irregularity | | of the superior fibers of the infraspinatustendon are suggestive of mucoid degeneration, | | without definite evidence ofdiscrete tear. Subcortical cystic change seen at the | | proximal humerusunderlying the insertion of the infraspinatus tendon.The teres minor | | tendon is within normal limits.The subscapularis tendon appears intact, although with | | mild signal changedistally, as might be seen with tendinosis.The transverse humeral | | ligament appears attenuated, and may be torn at themedial margin.There is a appearance | | of flattening and splitting of the fibers of theintra-articular portion of the long head | | of the biceps tendon. There is partialmedial subluxation of the proximal portion of | | the long head of the biceps tendonin the superior aspect of the bicipital groove.There | | is no evidence of muscular atrophy or signal change to suggest denervationin the rotator | | cuff muscles.There is an anterior to posterior tear of the superior labrum, combined | | withdegenerative fraying and fragmentation at the anterior aspect of the superiorlabrum | | extending into the superior aspect of the anterior labrum.There is some thickening of | | the inferior glenohumeral ligament.There is appearance suspicious for chondromalacia of | | the inferior aspect of theglenoid. Thinning of the cartilage is noted at the inferior | | aspect of thehumeral head.No bone marrow edema.The overlying soft tissues are | | unremarkable.IMPRESSION -Mucoid degeneration of the supraspinatus tendon with | | irregularity of the fibersof the footplate of the supraspinatus suggestive of | | partial-thickness articularsurface tear.Appearance of mucoid degeneration of the | | superior fibers of the infraspinatustendon.Signal change distally in the subscapularis | | tendon suggestive of tendinosis. Attenuation of the transverse humeral ligament, with a | | possible tear of themedial transverse humeral ligament.Appearance of flattening and | | splitting of the intra-articular portion of thelong head of the biceps tendon with | | partial medial subluxation of the proximalportion of the long head of the biceps tendon | | at the superior aspect of thebicipital groove.Anterior to posterior tear of the superior | | labrum, with degenerative fraying andfragmentation at the anterior aspect of the | | superior labrum extending into thesuperior aspect of the anterior labrum.Thickening of | | the inferior glenohumeral ligament.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 | | | |There is some thickening of the inferior glenohumeral ligament. | |There is appearance suspicious for chondromalacia of the inferior aspect of the | |glenoid. Thinning of the cartilage is noted at the inferior aspect of the | |humeral head. | |No bone marrow edema. | |The overlying soft tissues are unremarkable. | | | |IMPRESSION - | |Mucoid degeneration of the supraspinatus tendon with irregularity of the fibers | |of the footplate of the supraspinatus suggestive of partial-thickness articular | |surface tear. | |Appearance of mucoid degeneration of the superior fibers of the infraspinatus | |tendon. | | | |Signal change distally in the subscapularis tendon suggestive of tendinosis. | |Attenuation of the transverse humeral ligament, with a possible tear of the | |medial transverse humeral ligament. | | | |Appearance of flattening and splitting of the intra-articular portion of the | |long head of the biceps tendon with partial medial subluxation of the proximal | |portion of the long head of the biceps tendon at the superior aspect of the | |bicipital groove. | | | |Anterior to posterior tear of the superior labrum, with degenerative fraying and | |fragmentation at the anterior aspect of the superior labrum extending into the | |superior aspect of the anterior labrum. | | | |Thickening of the inferior glenohumeral ligament. 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 | | | | | |Dictated and Signed by: Marcus Grimes MD | | Electronically signed: 10/10/2014 4:16 PM | + + + + + + + | Performing | Address | City/State/Zipcode | Phone Number | | Organization | | | | + + + + + | [facility] | [address] | [place] | [phone] | | [facility] | | [address] | | | - IMAGING | | | | + + + + + documented in this encounter Visit Diagnoses + + | Diagnosis | + + | Left shoulder pain Pain in joint, shoulder region | + + documented in this encounter"
--- OUTSIDE RECORDS SUMMARY | ~2019-09-25 | XMS | Encounter Summary ---
Demographics + + + | Address | [address] | | | [place] [address] | + + + | Home Phone | | + + + | Preferred Language | Unknown | + + + | Marital Status | | + + + | Orthodox Affiliation | 1027 | + + + | Race | Unknown | + + + | Ethnic Group | Unknown | + + + Author + + + | Author | [facility] | | | and [place] | + + + | Organization | [facility] | | | and [...] [place] | | | | | [address] | | + + + + + Care Team Providers + +------+ + | Care Deployment Technician Name | Role | Phone | + [...] + + | Closed | Specialty | Physical | Diagnoses | [place], | [facility] | | | Services | Therapy | Status post | Agus Wong MD | PHYSICAL | | | Required | | total right | [address] | THERAPY - | | | | | knee | [place] | [facility] | | | | | replacement | [place], [place] | [place] | | | | | Right knee | [address] | [address] | | | | | pain, | Phone: | ST | | | | | unspecified | [phone] | [facility] | | | | | chronicity | Fax: | [place], [place] | | | | | | [phone] | [address] | | | | | | | Phone: | | | | | | | [phone] | | | | | | | Fax: | | | | | | | [phone] | +--------+ + + + + + Encounter Details +--------+ + + + + | Date | Type | Department | Care Team | Description | +--------+ + + + + | 09/10/ | Orders Only | [facility] [place] | Agus Steward, | Status post total | | 2016 | | ORTHOPEDIC SURGERY | MD [address] | right knee | | | | [address] | [place], [place] | replacement (Primary | | | | [place], [place] | [address] | Dx); Right knee | | | | [address] | | pain, unspecified | | | | [phone] | | chronicity | +--------+ + + + + Social [...] | + + +--------+ + + | * [facility] | Outpatient | Routin | Status post total | Ordered: 09/11/2015 | | Therapy - [facility]B | Referral | e | right knee | | | Referral | | | replacement Right | | | | | | knee pain, | | | | | | unspecified | | | | | | chronicity | | + + +--------+ + + documented as of this encounter Visit Diagnoses + + | Diagnosis | + + | Status post total right knee replacement - Primary | + + | Right knee pain, unspecified chronicity | + + documented in this encounter"
--- OUTSIDE RECORDS SUMMARY | ~2019-09-25 | XMS | Encounter Summary ---
Demographics + + + | Address | [address] | | | [place] [address] | + + + | Home Phone | | + + + | Preferred Language | Unknown | + + + | Marital Status | | + + + | Oriental Orthodox Affiliation | 1027 | + + [...] [place] | | | | | [address] | | + + + + + Care Team Providers + +------+ + | Care Long Wall Shear Operator Name | Role | Phone | [...] + + | 11/10/ | Telephone | [facility] | Agus Steward, | Medication Refill | | 2015 | | ORTHOPEDIC SURGERY | [address] [facility] [facility] | | | | | [address] [facility] | [place], [place] | | | | | [place], [place] | [address] | | | | | [address] | | | | | | [phone] | | | +--------+ + + + [...]
--- OUTSIDE RECORDS SUMMARY | ~2019-09-25 | XMS | Encounter Summary ---
Demographics + + + | Address | [address] | | | [place] [address] | + + + | Home Phone | | + + + | Preferred Language | Unknown | + + + | Marital Status | | + + + | Amish Affiliation | 1027 | + + + | Race | Unknown | + + + | Ethnic Group | Unknown | + + + Author + + + | Author | [facility] | | | and [place] | + + + | Organization | [facility] | | [...] [place] | | | | | [address] | | + + + + + Care Team Providers + +------+ + | Care Bleach Liquor Maker Name | Role | Phone | + +------+ + PCP | Unavailable | + +------+ + Encounter Details +--------+ + + + + | Date | Type | Department | Care Team | Description | +--------+ + + + + | 03/29/ | Hospital | [facility] | | | | 1998 | Encounter | [facility] | | | | | | [address] | | | | | | [place] | | | | | | [address] | | | | | | [phone] | | | +--------+ + + + [...]
--- OUTSIDE RECORDS SUMMARY | ~2019-09-25 | XMS | Encounter Summary ---
Demographics + + + | Address | [address] | | | [place] [address] | + + + | Home Phone | | + + + | Preferred Language | Unknown | + + + | Marital Status | | + + + | Presybeterian Affiliation | 1027 | + + + | Race | Unknown | + + + | Ethnic Group | Unknown | + + + Author + + + | Author | [facility] | | | and [place] | + + + | Organization | [facility] | | | and [...] [place] | | | | | [address] | | + + + + + Care Team Providers + +------+ + | Care Civil Engineering Project Manager Name | Role | Phone | + +------+ + | Jhonny Jimenez MD | PCP | | + +------+ + Encounter Details +--------+ + + + + | Date | Type | Department | Care Team | Description | +--------+ + + + + | 09/22/ | Orders Only | [facility] [place] | Agus Steward, | Left shoulder pain | | 2015 | | ORTHOPEDIC SURGERY | MD [address] | (Primary Dx) | | | | [address] | [place] | | | | | [place] | [address] | | | | | [address] | | | | | | [phone] | | | +--------+ + + + [...] Not on filedocumented as of this encounter Results XR Shoulder Left 2 [...] | + + + + + | [facility] | [address] | [place], [place] | [phone] | | [facility] | | [address] | | | - IMAGING | | | | + + + + + documented in this encounter Visit Diagnoses + + | Diagnosis | + + | Left shoulder pain - Primary Pain in joint, shoulder region | + + documented in this encounter"
--- OUTSIDE RECORDS SUMMARY | ~2019-09-25 | XMS | Encounter Summary ---
Demographics + + + | Address | [address] | | | [place] [address] | + + + | Home Phone | | + + + | Preferred Language | Unknown | + + + | Marital Status | | + + + | Voodoo Affiliation | 1027 | + + + | Race | Unknown | + + + | Ethnic Group | Unknown | + + + Author + + + | Author | [facility] | | | and [place] | + + + | Organization | [facility] | | | [...] [place] | | | | | [address] | | + + + + + Care Team Providers + +------+ + | Care Extractor Filler Name | Role | Phone | + [...] Specialty | Gastroenterol | Diagnoses | | [place], | | | Services | ogy / Lab | Chronic | [place], | [place], | | | Required | | hepatitis C | [place], | 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 [address] | | | | | without | PA[employer]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 [address] | [place], [place] | | | | | hepatic coma | [place], [place] | [address] [place] | | | | | (HCC) | [address] [place] | [place], [place] | | | | | | [place], [place] | [address] Phone: | | | | | | [address] | [phone] | | | | | | Phone: | Fax: | | | | | | [phone] | [phone] | | | | | | Fax: | | | | | | | [phone] | | +--------+ + + + + + Reason for Visit +--------+ + | Reason | Comments | +--------+ + | Other | Hep C | +--------+ + Evaluate & Treat (Routine) +--------+--------+ + + + + | Status | Reason | Specialty | Diagnoses / | Referred By | Referred To | | | | | Procedures | Contact | Contact | +--------+--------+ + + + + | Closed | | Gastroenterol | Diagnoses | Tony, | [place], | | | | ogy | Unspecified | Jhonny Kiran MD | [place], | | | | | viral | [address] | PA[employer]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 | [place], [place] | | | | | without | [place], | [address] [place] | | | | | hepatic coma | [place] [address] | [place], [place] | | | | | Old | Phone: | [address] Phone: | | | | | disruption | [phone] | [phone] | | | | | of anterior | Fax: | Fax: | | | | | cruciate | [phone] | [phone] | | | | | ligament | | | | | | | Unspecified | | | | | | | essential | | | | | | | hypertension | | | | | | | Tobacco | | | | | | | use disorder | | | | | | | Procedures | | | | | | | Office | | | | | | | Visit | | | +--------+--------+ + + + + Encounter Details +--------+---------+ + + + | Date | Type | Department | Care Team | Description | +--------+---------+ + + + | 09/09/ | Office | [facility] | [facility], | Chronic hepatitis C | | 2015 | Visit | GASTROENTEROLOGY | LADY Kinney [address] | without hepatic coma | | | | [address] [place] | [place], [place] [address] | (HCC) (Primary Dx); | | | | [address] [place], [place] | [place] | Essential | | | | [address] | [address] | hypertension | | | | [phone] | | | +--------+---------+ + + + Social History + +-------+ [...] + + + | Blood Pressure | 150/92 | 09/09/2014 8:10 AM | | | | | PDT | | + + + + + | Pulse | 79 | 09/09/2014 8:10 AM | | | | | PDT | | + + + + + | Temperature | 36.6 C (97.9 F) | 09/09/2014 8:10 AM | | | | | PDT | | + + + + + | Respiratory Rate | 16 | 09/09/2014 8:10 AM | | | | | PDT | | + + + + + | Oxygen Saturation | - | - | | + + + + + | Inhaled Oxygen | - | - | | | Concentration | | | | + + + + + | Weight | 108.2 kg (238 lb 9.6 | 09/09/2014 8:10 AM | | | | oz) | PDT | | + + + + + | Height | 182.9 cm (6') | 09/09/2014 8:10 AM | | | | | PDT | | + + + + + | Body Mass Index | 32.36 | 09/09/2014 8:10 AM | | | | | PDT | | + + + + + documented in this encounter Progress Notes Gregoria Hawkins ARNP - 09/09/2014 8:18 AM PDTFormatting of this note might be differe nt from the original. Lebron Alejandro is a 54 y.o. male referred by Jhonny Jimenez for evaluation and treatment of HCV. History of present illness: Patient was initially diagnosed with HCV about 30 years ago. Likely cause of infection of Maria Teresa BRAR is history of IV or intranasal drug or incarceration. Has been treated for HCV in the past. Prior treatment includes interferon and ribavirin. He states he was only taking sporadically for about 5 weeks. Last drank alcohol: about 1 year ago. Last smoked marijuana: over 2 years ago. Last used illegal drugs: over 1 year ago. Denies ascites, jaundice, hematemesis, peripheral edema, sleep changes, or confusion. Patient notes he has never had colonoscopy in the past. Denies any issues with bowels. Note s regular BM without difficulty. 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 Eyes:Denies using glaucoma eye drops. Denies dry, burning, painful eyes Respiratory:Denies shortness of breath, cough or wheezing. Gastrointestinal:Denies constipation, diarrhea, bloody or black stools, hematemesis, nausea or vomiting, hemorrhoids, heartburn, abdominal pain, or dysphagia Skin: Denies rashes Neurological:Denies memory difficulties, numbness or tingling, muscle weakness, paralysis o f arms or legs, epilepsy or seizure, or frequent bothersome and headaches ENT:Denies hearing loss, hearing aids, hearing ringing or buzzing in ears, constantly runny nose, nasal obstruction, hayfever, dentures, or hoarseness. Cardiovascular:Denies chest pain, palpitations, or swelling to legs : Complains of frequent nocturnal urination. Denies painful urination, urine incontinenc e, bloody urine, or impotence. Musculoskeletal:Denies swollen joints, painful back, or painful joints. Psychiatric:Denies depression and anxiety Endocrine:Denies enlarged thyroid Heme/lymph:Denies anemia or enlarged lymph glands. Physical exam: General: well developed, well nourished, in no acute distress, no muscle wasting noted Head: normocephalic and atraumatic Eyes: Sclera clear Mouth: MMM Lungs: Clear to auscultate bilaterally and throughout Heart: regular rate and rhythm Abdomen: Soft, non tender, non distended, bowel tones positive times 4 quadrants, negative Irwin y's sign, negative rebound tenderness, no guarding, no hepatosplenomegaly palpated. Rectal: Will be done prior to procedure Msk: symmetrical with no deformity, with normal posture and gait, normal strength. Extremities: no clubbing, cyanosis, edema, or deformity noted Neurologic: no focal deficits, cranial nerves II-XII grossly intact Skin: intact without lesions or rashes. Negative for spider angioma Psych: alert and cooperative; normal mood and affect; normal attention span and concentration, negative for asterixis Abstract on 09/05/2014 Component Date Value Ref Range Status HCV Quantitative Log 05/24/2012 6.3 Final HCV Quantitative 05/24/2012 [id number] Final HCV Quantitative Log 05/29/2011 5.7 Final HCV Quantitative 05/29/2011 [id number] Final HCV Quantitative Log 12/20/2009 6.5 Final HCV Quantitative 12/20/2009 [id number] Final Assessment: 1. Chronic hepatitis C without hepatic coma (HCC) Hepatitis C, Fibrosure Panel Alpha Fetoprotein, Tumor Marker [id number], Total SANCHO QUAL, SCREEN CBC with Differential Ceruloplasmin Comprehensive Metabolic Panel Ferritin Hepatitis A IGG.IGM Hepatitis B Core Ab, IgM Hepatitis B Surface Ab Hepatitis B Surface Ag Iron and Transferrin Mitochrondrial Ab Protime INR Smooth Muscle Ab US Abdomen Limited Hepatitis C RNA, Quant, NAAT Hepatitis C Genotyping Ambulatory referral to Gastroenterology GREG[place]IA genotype 1, no sub type Plan: Liver fibrosis: A liver biopsy has never been done. Will order FibroSure laboratory test. This in combination with APRI will help determine a fibrosis score to determine if patient would be at good candidate for hepatitis C treatment at this time. He is also due for routine abdominal ultrasound as well as a different laboratory tests to determine no other possible causes for liver disease. Vaccination: If it has not been done, recommend patient is vaccinated for both Hepatitis A and Hepatitis B. Transmission: Discussed following infection control guidelines. Inform tattoo parlors and [facility] providers of HCV infection. Avoid sharing personal items that might have blood on them, such as razors, toothbrushes, and nail clippers.Despite low risk of transmission throu gh routine sexual contact, recommend safe sex practices, especially if multiple sexual partn ers. Substance use/abuse: Patient was educated on the importance of avoiding all alcohol and mar ijuana. Cannot treat HCV unless patient has been sober from alcohol, marijuana, and all othe r illegal drugs. Contraindications to HCV treatment: Absolute contraindications to HCV treatment include: 1. Short life expectancy.severe co morbidities (less than 10 years). 2. Known advanced cirrhosis with clinical decompensation (e.g. Ascites, encephalopathy, va riceal bleeding or SBP) 3. or inability to reliably use control. 4. Severe cardiac disease. Patient to have colonoscopy for further evaluation. The procedural techniques, risks, indic ations, and alternatives were discussed. Among the risks, are perforation, bleeding, infect ion, allergic/adverse reactions to medications, and cardiovascular complications. Each of t hese could result in hospitalization, additional procedures (including surgery), or other li fe threatening complications. Patient verbalized understanding. Risk factors to colo-rectal cancer discussed with patient including smoking, obesity, excessive red meat ingestion, adv ancing age and first degree family relative with history of colo-rectal cancer discussed wit h patient. Patient to call with any questions or concerns prior to procedure. Will follow up with results. Patient is to call with any question or concerns. Any fevers, chills, chest pain, SOB or other serious symptoms patient is to call the office or go to ER . Cc: Jhonny Jimenez This note was dictated using voice recognition software. Please contact me if there are an y questions regarding its content. documented in this encounter Plan of Treatment + + +--------+ + + | Name | Type | Priori | Associated Diagnoses | Order Schedule | | | | ty | | | + + +--------+ + + | Ambulatory referral | Outpatient | Routin | Chronic hepatitis | Expected: 09/10/2014 | | to Gastroenterology | Referral | e | C without hepatic | (Approximate), | | [place] | | | coma (HCC) | Expires: 09/09/2015 | + + +--------+ + + documented as of this encounter Results US Abdomen Limited (09/15/2014 8:22 AM PDT) + + | Specimen | + + | | + + + + + | Narrative | Performed At | + + + | US ABDOMEN LIMITED 09/15/2014 8:00 AM HISTORY: HCV. | [facility] | | COMPARISON: None. PROTOCOL: Lacy scale and Doppler images of the | . [facility] | | abdomen. FINDINGS: The gallbladder is within normal limits with | [facility] | | no evidence for gallstones. The gallbladder wall measures less than 2 | - IMAGING | | mm, which is normal. Sonographic Calix's sign is absent. The | | | common bile duct measures 4 mm, normal. The liver is smooth in | | | contour and normal in echotexture without focal hepatic mass. | | | Visualized pancreas is within normal limits. The right renal | | | parenchyma is mildly echogenic and is suggestive of medical renal | | | disease. There is no hydronephrosis. The kidney measures 12.1 x 6.9 x | | | 6.2 cm. There is normal blood flow in the IVC, portal veins, | | | hepatic veins, and splenic vein. IMPRESSION - No focal | | | abnormalities of liver. Echogenic right kidney suggestive of | | | medical renal disease. Dictated and Signed by: Ciro Theodore MD | | | Electronically signed: 09/15/2014 3:32 PM | | + + + + + | Procedure Note | + + | Gabe, Rad Results In - 09/15/2014 3:35 PM PDT US ABDOMEN LIMITED 09/15/2014 8:00 AM | | | | HISTORY: HCV. | | | | COMPARISON: None. | | | | PROTOCOL: Lacy scale and Doppler images of the abdomen. | | | | FINDINGS: | | The gallbladder is within normal limits with no evidence for gallstones. The | | gallbladder wall measures less than 2 mm, which is normal. | | Sonographic Calix's sign is absent. | | The common bile duct measures 4 mm, normal. | | | | The liver is smooth in contour and normal in echotexture without focal hepatic | | mass. | | | | Visualized pancreas is within normal limits. | | | | The right renal parenchyma is mildly echogenic and is suggestive of medical | | renal disease. There is no hydronephrosis. The kidney measures 12.1 x 6.9 x 6.2 | | cm. | | | | There is normal blood flow in the IVC, portal veins, hepatic veins, and splenic | | vein. | | | | IMPRESSION - | | No focal abnormalities of liver. | | | | Echogenic right kidney suggestive of medical renal disease. | | | | Dictated and Signed by: Ciro Theodore MD | | Electronically signed: 09/15/2014 3:32 PM | + + + + + + + | Performing | Address | City/State/Zipcode | Phone Number | | Organization | | | | + + + + + | [facility] | [address] | [place] | [phone] | | [facility] | | [address] | | | - IMAGING | | | | + + + + + Hepatitis C Genotyping (09/14/2014 11:07 AM PDT) [...] | | | | | | determinedby [facility] | | | | | | [...] | | | | [address] [place] | | | | | | [address] | | | | + + + [...] | [address] | [place] [address] | [phone] | + + + + + Hepatitis [...] + + + | HCV Viral | [id number] (A)Comment: | NOTDET IU/mL | [facility] | [...] | | | | | | Performed: [facility], [address] | | | | | | [address], [place] | | | | | | [address] | | | | + + + + + + + + | Specimen | + + | Blood specimen | | (specimen) | + + + + + + + | Performing | Address | City/State/Zipcode | Phone Number | | Organization | | | | + + + + + | [facility] | [address] | [place] [address] | [phone] | + + + + + Smooth [...] | | | | | | [place] [address] | | | | + + + + + + + + | Specimen | + + | Blood specimen | | (specimen) | + + + + + + + | Performing | Address | City/State/Zipcode | Phone Number | | Organization | | | | + + + + + | [facility] | [address] | [place] [address] | [phone] | + + + + + Protime [...] | | Anticoagulation Range: | | [facility] | | | | 2.0 - 3.0High [...] + | [facility] | [address] | [place], [place] | [phone] | | [facility] | | [address] | | | - LABORATORY | | [...] | | | [facility], [address], | | | | | | [place] [address] | | | | + + + + + + + + | Specimen | + + | Blood specimen | | (specimen) | + + + + + + + | Performing | Address | City/State/Zipcode | Phone Number | | Organization | | | | + + + + + | [facility] | [address] | [place] [address] | [phone] | + + + + + Iron [...] | [facility] | [address] | [place] | [phone] | | [facility] | | [address] | | | - LABORATORY | | [...] | | Surface Ag | Testing Performed: [facility], | | [facility] | | | | [address], | | | | | | [place] [address] | | | | + + + + + + + + | Specimen | + + | Blood specimen | | (specimen) | + + + + + + + | Performing | Address | City/State/Zipcode | Phone Number | | Organization | | | | + + + + + | [facility] | [address] | [place] [address] | [phone] | + + + + + Hepatitis [...] | [facility] | | | | [id number] or greater | | | | | [...] [place] | | | | | | [address] | | | | + + + + + + + + | Specimen | + + | Blood specimen | | (specimen) | + + + + + + + | Performing | Address | City/State/Zipcode | Phone Number | | Organization | | | | + + + + + | [facility] | [address] | [place] [address] | [phone] | + + + + + Hepatitis [...] | | Core Ab | Testing Performed: [facility], | | [facility] | | | IgM | [address], | | | | | | [place] [address] | | | | + + + + + + + + | Specimen | + + | Blood specimen | | (specimen) | + + + + + + + | Performing | Address | City/State/Zipcode | Phone Number | | Organization | | | | + + + + + | [facility] | [address] | [place] [address] | [phone] | + + + + + Hepatitis [...] [facility] | | | | [address], | | | | | | [place] [address] | | | | + + + + + + | Hepatitis A | Non ReactiveComment: | NR | REFERENCE | | | Ab IgM | Testing Performed: [facility], | | [facility] | | | | [address] | | | | | | [place] [address] | | | | + + + + + + | Hepatitis | See CommentsComment: | | REFERENCE | | | Interpretat | Consistent with remote | | [facility] | | | ion: | past HAV | | | | | | infection.Testing | | | | | | Performed: [facility], [address] | | | | | | [address], [place] | | | | | | [address] | | | | + + + + + + + + | Specimen | + + | Blood specimen | | (specimen) | + + + + + + + | Performing | Address | City/State/Zipcode | Phone Number | | Organization | | | | + + + + + | [facility] | [address] | [place] [address] | [phone] | + + + + + Ferritin [...] [address] | [place] | [phone] | | [facility] | | [address] | | | - LABORATORY | | [...] [facility] | | | | | | [facility] | | | | | | MEDICAL | | | | | | CENTER - | | | | | | LABORATORY | | + + + + + + | BUN | 15 | 7 - 18 mg/dL | [facility] | | | | | | [facility] | | | | | [...] | mL/min/1.73m2 | [facility] | | | SCOTTISH | RATE,ESTIMATED | | MEDICAL | | | | mL/min/1.81j2Pcke than | | CENTER - | | [...] | + + + + + | [facility] | [address] | [place] | [phone] | | [facility] | | [address] | | | - LABORATORY | | [...] [place] | | | | | | [address] | | | | + + + + + + + + | Specimen | + + | Blood specimen | | (specimen) | + + + + + + + | Performing | Address | City/State/Zipcode | Phone Number | | Organization | | | | + + + + + | [facility] | [address] | [place] [address] | [phone] | + + + + + CBC [...] | Monocytes | | K/uL | [facility] | | | | | | MEDICAL | | | | | | CENTER - | | | | | | LABORATORY | | + +-------+ + + + | Absolute | 0.10 | 0.00 - 0.40 | [facility] | | | Eosinophils | | K/uL | [facility] | | | | [...] [address] | [place] | [phone] | | [facility] | | [address] | | | - LABORATORY | | | | + + + + + SANCHO JAIMIE, SCREEN (09/14/2014 11:07 AM PDT) + + [...] [facility] | [address] | [place] [address] | [phone] | + + + + + Omrof-[id number], Total (09/14/2014 11:07 AM PDT) + + + + + + | Component | Value | Ref Range | Performed | Pathologist | | | | | At | Signature | + + + + + + | A1 | 130Comment: Testing | 100 - 200 mg/dL | [facility]FER[facility] | | | ANTITRYPSIN | Performed: [facility], [address] | | [facility] | | | SER | [address], [place] | | | | | | [address] | | | | + + + + + + + + | Specimen | + + | Blood specimen | | (specimen) | + + + + + + + | Performing | Address | City/State/Zipcode | Phone Number | | Organization | | | | + + + + + | [facility] | [address] | [place] [address] | [phone] | + + + + + Alpha [...] | | | | | | Performed: [place] | | | | | | [facility] | | | | | | [place], [address], | | | | | | [place] [address] | | | | + + + + + + + + | Specimen | + + | Blood specimen | | (specimen) | + + + + + + + | Performing | Address | City/State/Zipcode | Phone Number | | Organization | | | | + + + + + | [facility] | [address] | [place] [address] | [phone] | + + + + + Hepatitis [...] | | [facility] | | | colin Qn | | | | | + + [...] | | | | | | Performed: [facility] | | | | | | [address] | | | | | | [place], [place] | | | | | | [address] | | | | + + + + + + + + | Specimen | + + | Blood specimen | | (specimen) | + + + + + + + | Performing | Address | City/State/Zipcode | Phone Number | | Organization | | | | + + + + + | [facility] | [address] | [place] [address] | [phone] | + + + + + documented in this encounter Visit Diagnoses + + | Diagnosis | + + | Chronic hepatitis C without hepatic coma (HCC) - Primary | + + | Essential hypertension Unspecified essential hypertension | + + documented in this encounter"
--- OUTSIDE RECORDS SUMMARY | ~2019-09-25 | XMS | Encounter Summary ---
Demographics + + + | Address | [address] | | | [place] [address] | + + + | Home Phone | | + + + | Preferred Language | Unknown | + + + | Marital Status | | + + + | Shinto Affiliation | 1027 | + + + | Race | Unknown | + + + | Ethnic Group | Unknown | + + + Author + + + | Author | [facility] | | | and [place] | + + + | Organization | [facility] | | [...] [place] | | | | | [address] | | + + + + + Care Team Providers + +------+ + | Care Manager Telecom Name | Role | Phone | + +------+ + | Jhonny Jimenez MD | PCP | | + +------+ + Reason for Visit +---------+ + | Reason | Comments | +---------+ + | Post Op | right total knee arthroplasty dos 09/08/15 | +---------+ + Encounter Details +--------+---------+ + + + | Date | Type | Department | Care Team | Description | +--------+---------+ + + + | 10/13/ | Office | [facility] | Agus Steward, | Status post total | | 2016 | Visit | ORTHOPEDIC SURGERY | [address] [facility] | right knee | | | | [address] [facility] | [place], [place] | replacement (Primary | | | | [place], [place] | [address] | Dx) | | | | [address] | | | | | | [phone] | | | +--------+---------+ + + + [...] documented as of this encounter Progress Notes Agus Steward MD - 10/15/2015 9:27 AM PDTPatient returns postop right total knee arthro plasty 4 weeks out He is doing very well He took a fall a few days ago and did the splits on a slick floor On exam his medial collateral ligament. Feels snug He has full extension and he is flexing to 120 X-ray show excellent alignment and position of his components He is given reassurance today and he'll continue with his exercise regimen We'll return in one month documented in this encounter Plan of Treatment Not on filedocumented as of this encounter Results XR Knee Right 1 - 2 Vw (10/14/2015 12:57 PM PDT) + + | Specimen | + + | | + + + + + | Narrative | Performed At | + + + | TWO VIEWS RIGHT KNEE 10/14/2015 12:57 PM CLINICAL HISTORY: Post op | [facility] | | Right Total Knee Arthroplasty DOS: 2015 COMPARISON: KNEE | [facility] | | RADIOGRAPHS SEPTEMBER 17, 2014 FINDINGS: Total knee arthroplasty hardware | [facility] | | is now present, and appears to be well seated. No fracture, | - IMAGING | | subluxation or prosthetic loosening is evident. Anchoring screws | | | persist within the distal femur and anterior, proximal tibia, likely | | | related to previous ACL reconstruction. A portion of the tibial | | | screw has been removed in the interim. There is a stable osseous | | | excrescence arising from the posterior aspect of the distal femoral | | | diaphysis. Tiny densities now evident along the inferior aspect of | | | the patella and medial and lateral margin of the tibial plateau are | | | likely postoperative in nature. A small to moderate residual knee | | | effusion is suggested. IMPRESSION - 1. SATISFACTORY APPEARANCE | | | STATUS POST TOTAL KNEE ARTHROPLASTY. Dictated and Signed by: Shorty Dent | | MD Jacques Electronically signed: 10/14/2015 3:39 PM | | + + + + + | Procedure Note | + + | Gabe, Rad Results In - 10/14/2015 3:42 PM PDT TWO VIEWS RIGHT KNEE 10/14/2015 12:57 PM | | | | CLINICAL HISTORY: Post op Right Total Knee Arthroplasty DOS: 2015 | | | | COMPARISON: KNEE RADIOGRAPHS SEPTEMBER 17, 2014 | | | | FINDINGS: Total knee arthroplasty hardware is now present, and appears to be | | well seated. No fracture, subluxation or prosthetic loosening is evident. | | Anchoring screws persist within the distal femur and anterior, proximal tibia, | | likely related to previous ACL reconstruction. A portion of the tibial screw | | has been removed in the interim. There is a stable osseous excrescence arising | | from the posterior aspect of the distal femoral diaphysis. Tiny densities now | | evident along the inferior aspect of the patella and medial and lateral margin | | of the tibial plateau are likely postoperative in nature. A small to moderate | | residual knee effusion is suggested. | | | | IMPRESSION - | | 1. SATISFACTORY APPEARANCE STATUS POST TOTAL KNEE ARTHROPLASTY. | | | | Dictated and Signed by: Shorty Hanna MD | | Electronically signed: 10/14/2015 3:39 PM | + + + + + + + | Performing | Address | City/State[facility] | Phone Number | | Organization | | | | + + + + + | [facility] | [address] | [place] | [phone] | | [facility] | | [address] | | | - IMAGING | | | | + + + + + documented in this encounter Visit Diagnoses + + | Diagnosis | + + | Status post total right knee replacement - Primary | + + documented in this encounter"
--- OUTSIDE RECORDS SUMMARY | ~2019-09-25 | XMS | Encounter Summary ---
Demographics + + + | Address | [address] | | | [place] [address] | + + + | Home Phone | | + + + | Preferred Language | Unknown | + + + | Marital Status | | + + + | Alevism Affiliation | 1027 | + + + | Race | Unknown | + + + | Ethnic Group | Unknown | + + + Author + + + | Author | [facility] | | | and [place] | + + + | Organization | [facility] | | [...] [place] | | | | | [address] | | + + + + + Care Team Providers + +------+ + | Care Terrazzo Journeyman Name | Role | Phone | + [...] + + + | Closed | | | Diagnoses | | | | | | | Special | | | | | | | screening | | | | | | | for | | | | | | | malignant | | | | | | | neoplasms, | | | | | | | colon | | | | | | | Obesity (BMI | | | | | | | 30-39.9) | | | | | | | Special | | | | | | | screening | | | | | | | for | | | | | | | malignant | | | | | | | neoplasms, | | | | | | | colon | | | | | | | [V76.51]Obes | | | | | | | ity (BMI | | | | | | | 30-39.9) | | | | | | | [278.00] | | | | | | | Procedures | | | | | | | GA | | | | | | | COLONOSCOPY | | | | | | | FLX DX | | | | | | | W/COLLJ SPEC | | | | | | | WHEN PFRMD | | | | | | | GA | | | | | | | COLONOSCOPY | | | | | | | W/BIOPSY | | | | | | | SINGLE/MULTI | | | | | | | PLE GA | | | | | | | COLSC FLX | | | | | | | W/RMVL OF | | | | | | | TUMOR POLYP | | | | | | | LESION SNARE | | | | | | | TQ | | | | | | | COLONOSCOPY | | | +--------+--------+ + + + + Encounter Details +--------+---------+ + + + | Date | Type | Department | Care Team | Description | +--------+---------+ + + + | 10/02/ | Surgery | [facility] | Bill Ferraro MD | COLONOSCOPY | | 2015 | | [facility] | [address] | | | | | [address] | [place], [place] | | | | | [place] | [address] | | | | | [address] | [phone] | | | | | [phone] | | | +--------+---------+ + + + [...] this encounter Last Filed Vital Signs + +---------+ + + | Vital Sign | Reading | Time Taken | Comments | + +---------+ + + | Blood Pressure | 116/85 | 10/02/2014 9:58 AM | | | | | PDT | | + +---------+ + + | Pulse | 71 | 10/02/2014 9:58 AM | | | | | PDT | | + +---------+ + + | Temperature | - | - | | + +---------+ + + | Respiratory Rate | 16 | 10/02/2014 9:58 AM | | | | | PDT | | + +---------+ + + | Oxygen Saturation | 93% | 10/02/2014 9:58 AM | | | | | PDT | | + +---------+ + + | Inhaled Oxygen | - | - | | | Concentration | | | | + +---------+ + + | Weight | - | - | | + +---------+ + + | Height | - | - | | + +---------+ + + | Body Mass Index | - | - | | + +---------+ + + documented in this encounter Discharge Instructions Instructions Maria M Camacho RN - 10/01/2014Patient Discharge Instructions after an Endo scopy Procedure ? You may resume your regular diet after discharge. ? Do not drive, operate machinery, make critical decisions or do activities that require co ordination or balance for 24hrs. ? Resume normal medications unless otherwise instructed. ? If biopsies were taken, the physician s office will contact you within 7-10 days. ? If a colonoscopy was performed, then you may continue to expel large amounts of air from your rectum. Please call the physician who did your procedure at [phone] if you have any questions or experience any of the following: ? Increasing abdominal pain, nausea, or vomiting. ? Chills and fever over 101F. ? New abdominal swelling or bloating. ? Signs of rectal bleeding (black or red stool). If you cannot get a hold of your physician, then call the [facility] [phone] . If necessary, report to the Emergency Department at [facility]. Quit smoking: If you smoke or have smoked within the last year, quitting is the most import ant thing you can do to protect and improve your health. Understanding Colon and Rectal Polyps The colon (also called the large intestine) is a muscular tube that forms the last part of the digestive tract. It absorbs water and stores food waste. The colon is about 4 to 6 feet long. The rectum is the last 6 inches of the colon. The colon and rectum have a smooth linin g composed of millions of cells. Changes in these cells can lead to growths in the colon ken t can become cancerous and should be removed. When the Colon Lining Changes Changes that occur in the cells that line the colon or rectum can lead to growths called po lyps. Over a period of years, polyps can turn cancerous. Removing polyps early may prevent c ancer from ever forming. Polyps Polyps are fleshy clumps of tissue that form on the lining of the colon or rectum. Small po lyps are usually benign (not cancerous). However, over time, cells in a polyp can change and become cancerous. Certain types of polyps known as adenomatous polyps are premalignant. The risk for invasive cancer increases with the size of the polyp and certain cell and gene fea tures. This means that they can become cancerous if they're not removed.Hyperplastic polyp s are benign. They can grow quite large and not turn cancerous. Cancer Almost all colorectal cancers start when polyp cells begin growing abnormally. As a cancero us tumor grows, it may involve more and more of the colon or rectum. In time, cancer can als o grow beyond the colon or rectum and spread to nearby organs or to glands called lymph node s. The cells can also travel to other parts of the body. This is known as metastasis. The ea rlier a cancerous tumor is removed, the better the chance of preventing its spread. [id number] The [employer]. [address] [place] [address], [place] [address]. All righ ts reserved. This information is not intended as a substitute for professional medical care. Always follow your healthcare professional's instructions. documented in this encounter Medications at Time [...] | + +--------+ + + + | COLONOSCOPY | Routin | 10/02/2014 | | Results for this | | | e | 8:30 AM | | procedure are in the | | | | PDT | | results section. | + +--------+ + + + | COLONOSCOPY | | 10/02/2014 | Special screening | | | | | 8:30 AM | for malignant | | | | | PDT | neoplasms, colon | | | | | | Obesity (BMI | | | | | | 30-39.9) | | + +--------+ + + + | SURGICAL PATHOLOGY | Routin | 10/02/2014 | | Results for this | | EXAM | e | 12:00 AM | | procedure are in the | | | | PDT | | results section. | + +--------+ + + + documented in this encounter Results COLONOSCOPY (10/02/2014 8:30 AM PDT) + + | Specimen | + + | | + + + + ---+ | Narrative | Performed At | + + ---+ | | [facility] | | GastroenterologyPatient Name: Lebron AlejandroProcedure Date: 10/02/2014 8:30 | [facility] | | AMMRN: [id number] #: [id number] of : 1960Admit | | | Type: AmbulatoryAge: 54Room: [facility] 02Gender: MaleNote Status: | | | FinalizedAttending MD: Bill Ferraro, [facility]rocedure: | | | ColonoscopyIndications: Screening for colorectal malignant | | | neoplasmProviders: Bill Ferraro MD, Ashwini Mueller | | | ILANA Osborne, Aisha Holly, | | | TechnicianReferring MD: Jhonny Jimenez MD (Referring | | | )Medicines: Midazolam 4 mg IV, Meperidine 100 mg | | | IVComplications: No immediate complications.Procedure: | | | Pre-Anesthesia Assessment: - Prior to the procedure, a History | | | and Physical was performed, and patient medications and | | | allergies were reviewed. The patient is competent. The risks | | | and benefits of the procedure and the sedation options and | | | risks were discussed with the patient. All questions were | | | answered and informed consent was obtained. Patient identification and | | | proposed procedure were verified by the physician, the nurse | | | and the collection systems technician in the pre-procedure area in the endoscopy | | | suite. Mental Status Examination: alert and oriented. Airway | | | Examination: normal oropharyngeal airway and neck mobility. | | | Respiratory Examination: clear to auscultation. CV Examination: | | | normal. Prophylactic Antibiotics: The patient does not require | | | prophylactic antibiotics. Prior Anticoagulants: The patient | | | has taken no previous anticoagulant or antiplatelet agents. ASA | | | Grade Assessment: II - A patient with mild systemic disease. After | | | reviewing the risks and benefits, the patient was deemed in | | | satisfactory condition to undergo the procedure. The anesthesia | | | plan was to use moderate sedation / analgesia (conscious | | | sedation). Immediately prior to administration of medications, | | | the patient was re-assessed for adequacy to receive sedatives. | | | The heart rate, respiratory rate, oxygen saturations, blood | | | pressure, adequacy of pulmonary ventilation, and response to | | | care were monitored throughout the procedure. The physical | | | status of the patient was re-assessed after the procedure. After | | | I obtained informed consent, the scope was passed under direct | | | vision. Throughout the procedure, the patient's blood pressure, | | | pulse, and oxygen saturations were monitored continuously. The | | | endoscope was introduced through the anus and advanced to the | | | cecum, identified by appendiceal orifice and ileocecal valve. | | | The colonoscopy was performed without difficulty. The patient | | | tolerated the procedure well. The quality of the bowel | | | preparation was good.Findings: The perianal and digital rectal | | | examinations were normal. A sessile polyp was found in the | | | sigmoid colon. The polyp was 3 mm in size. The polyp was | | | removed with a cold biopsy forceps. Resection and retrieval | | | were complete. Verification of patient identification for the | | | specimen was done by the physician and nurse using the patient's name | | | and date. Estimated blood loss was minimal. No | | | other significant abnormalities were identified in a careful | | | examination of the remainder of the colon. Non-bleeding internal | | | hemorrhoids were found during retroflexion and were small. | | | No additional abnormalities were found on retroflexion.Impression: | | | - One 3 mm polyp in the sigmoid colon. Resected and retrieved. | | | - Non-bleeding internal hemorrhoids.Recommendation: - | | | Patient has a contact number available for emergencies. The signs and | | | symptoms of potential delayed complications were discussed with | | | the patient. Return to normal activities tomorrow. Written | | | discharge instructions were provided to the patient. - | | | Regular diet. - Discharge patient to home. - Continue | | | present medications. - Await pathology results. - Repeat | | | colonoscopy in 5-10 years for surveillance based on pathology | | | results. - Return to GI clinic PRN. - The findings and | | | recommendations were discussed with the patient.Bill Ferraro | | | 10/02/2014 9:00 AMNumber of Addenda: 0Note Initiated On: 10/02/2014 | | | 8:30 AMScope Withdrawal Time: 0 hours 10 minutes 48 seconds Total | | | Procedure Duration: 0 hours 18 minutes 3 seconds Scope In: 8:38:18 | | | AMScope Out: 8:56:21 AM [facility], [address] | | [place] [address] | | | - Regular diet. | | | - Discharge patient to home. | | | - Continue present medications. | | | - Await pathology results. | | | - Repeat colonoscopy in 5-10 years for surveillance based on pathology | | | results. | | | - Return to GI clinic PRN. | | | - The findings and recommendations were discussed with the patient. | | |Bill Ferraro MD | | |10/02/2014 9:00 AM | | |Number of Addenda: 0 | | |Note Initiated On: 10/02/2014 8:30 AM | | |Scope Withdrawal Time: 0 hours 10 minutes 48 seconds | | |Total Procedure Duration: 0 hours 18 minutes 3 seconds | | |Scope In: 8:38:18 AM | | |Scope Out: 8:56:21 AM | | | [facility], [address] [place], [place] | | | [address] | | + + ---+ + +---------+ + + | Performing | Address | City/State/Zipcode | Phone Number | | Organization | | | | + +---------+ + + | [facility] | | | | + +---------+ + + Surgical Pathology Exam (10/02/2014 12:00 AM PDT) + + | Specimen | + + | | + + + + + | Narrative | Performed At | + + + | SPECIMEN(S): A SIGMOID POLYP SPECIMEN SOURCE: A. SIGMOID POLYP | [facility] | | CLINICAL HISTORY: V76.51 (screening for malignant neoplasms, | [facility] | | colon), 278.00 (obesity, unspecified) MICROSCOPIC DESCRIPTION: | | | Histologic sections of all submitted blocks are examined by light | | | microscopy. These findings, together with the gross examination, | | | support the pathologic diagnosis. FINAL PATHOLOGIC DIAGNOSIS: | | | Sigmoid polyp, biopsy: - Tubular adenoma (one fragment). | | | JVR:[facility]:C2NR GROSS DESCRIPTION: The specimen is labeled "Javon, | | | Lebron Oconnell" and designated "sigmoid polyp" on the requisition. Received | | | in formalin are two castro colored tissue fragments, 0.1-0.3 cm, all | | | into (A1). yt:JVR:[facility] PERFORMING LABORATORY: Tissue processing | | | and slide preparation were performed by [facility], [address] | | [facility], [place] [address] ([place]: Jonathan | | | Parker Horton CLIA#: [id number]). Professional interpretation was | | | performed by [facility], [facility] | | | Branch, [address], [place] [address] ([place]: | | | Jonathan Horton M.D.; CLIA#: [id number]). Diagnostician: Jonathan | | | Luis E Horton MD Pathologist Electronically Signed 10/03/2014 | | + + + + +---------+ + + | Performing | Address | City/State/Zipcode | Phone Number | | Organization | | | | + +---------+ + + | [facility] | | | | | [facility] | | | | + +---------+ + + documented in this encounter Visit Diagnoses + + | Diagnosis | + + | Special screening for malignant neoplasms, colon | + + | Obesity (BMI 30-39.9) Obesity, unspecified | + + documented in this encounter Administered Medications + +---------+ +------+-------+------+ | Medication Order | MAR | Action | Dose | Rate | Site | | | Action | Date | | | | + +---------+ +------+-------+------+ | lactated ringers (LR) infusion | New Bag | 10/03/19 | | 100 | | | at 100 mL/hr, Intravenous, | | 15 7:56 | | mL/hr | | | CONTINUOUS, Starting Nisha 10/02/14 | | AM PDT | | | | | at 0800, Pre-op | | | | | | + +---------+ +------+-------+------+ +---+---+ | | | +---+---+ + +-------+ +--------+---+---+ | meperidine (DEMEROL) 100 mg/mL | Given | 10/03/19 | 100 mg | | | | injection PRN, Starting Nisha | | 15 8:34 | | | | | 10/02/14 at 0835 | | AM PDT | | | | + +-------+ +--------+---+---+ +---+---+ | | | +---+---+ + +-------+ +------+---+---+ | midazolam (VERSED) 5 mg/mL | Given | 10/03/19 | 2 mg | | | | injection PRN, Starting Nisha | | 15 8:38 | | | | | 10/02/14 at 0836 | | AM PDT | | | | + +-------+ +------+---+---+ +-------+ +------+---+---+ | Given | 10/03/19 | 2 mg | | | | | 15 8:36 | | | | | | AM PDT | | | | +-------+ +------+---+---+ +---+---+ | | | +---+---+ documented in this encounter
--- OUTSIDE RECORDS SUMMARY | ~2019-09-25 | XMS | Encounter Summary ---
Demographics + + + | Address | [address] | | | [place] [address] | + + + | Home Phone | | + + + | Preferred Language | Unknown | + + + | Marital Status | | + + + | Adventism Affiliation | 1027 | + + + [...] [place] | | | | | [address] | | + + + + + Care Team Providers + +------+ + | Care Trauma Program Manager Name | Role | Phone | + +------+ + PCP | Unavailable | + +------+ + Encounter Details +--------+ + + + + | Date | Type | Department | Care Team | Description | +--------+ + + + + | 04/19/ | Hospital | [facility] | | | | 1998 - | Encounter | MED [facility] | | | | | | [address] | | | | 06/10/ | | [place] [address] | | | | 1999 | | [phone] | | | +--------+ + + + [...]
--- OUTSIDE RECORDS SUMMARY | ~2019-09-25 | XMS | Encounter Summary ---
Demographics + + + | Address | [address] | | | [place] [address] | + + + | Home Phone | | + + + | Preferred Language | Unknown | + + + | Marital Status | | + + + | Christian Affiliation | 1027 | + + + | Race | Unknown | + + + | Ethnic Group | Unknown | + + + Author + + + | Author | [facility] | | | and [place] | + + + | Organization | [facility] | | | [...] [place] | | | | | [address] | | + + + + + Care Team Providers + +------+ + | Care Unarmed Security Guard Name | Role | Phone | + [...] | +--------+ + + + + | 11/29/ | Telephone | [facility] | Agus Steward, | Medication Refill | | 2015 | | ORTHOPEDIC SURGERY | [address] [facility] | | | | | [address] [facility] | [place], [place] | | | | | [place], [place] | [address] | | | | | [address] | | | | | | [phone] | | | +--------+ + + + [...]
--- OUTSIDE RECORDS SUMMARY | ~2019-09-25 | XMS | Encounter Summary ---
Demographics + + + | Address | [address] | | | [place] [address] | + + + | Home Phone [...] + + + | Author | [facility] | | | and [place] | + + + | Organization | [facility] | | | and [...] [place] | | | | | [address] | | + + + + + Care Team Providers + +------+ + | Care Yard Jockey Name | Role | Phone | + [...] | | | | [place] | [address] | | | | | [address] | | | | | | [phone] | | | +--------+ + + + [...] + | [facility] | [address] | [place], [place] | [phone] | | [facility] | | [address] | | | - IMAGING | | | | + + + + + documented in this encounter Visit Diagnoses + + | Diagnosis | + + | Left shoulder pain - Primary Pain in joint, shoulder region | + + documented in this encounter"
--- OUTSIDE RECORDS SUMMARY | ~2019-09-25 | XMS | Encounter Summary ---
Demographics + + + | Address | [address] | | | [place] [address] | + + + | Home Phone [...] [place] | | | | | [address] | | + + + + + Care Team Providers + +------+ + | Care Coal Pipeline Operator Name | Role | Phone | [...] | | | | | | | ME TOTAL | | | | | | [...] Description | +--------+---------+ + + + | 09/07/ | Surgery | [facility] | Agus Steward, | Right Total Knee | | 2016 | | [facility] | MD [address] | Arthroplasty | | | | [address] | [place] | | | | | [place] | [address] | | | | | [address] | | | | | | [phone] | | | +--------+---------+ + + + [...] tablet by mouth Daily. aka: CHIKA Muller [facility] - SUPPORTING STATEMENTS OF MEDICAL NECESSITY AND [...] Electronically signed by: Agus Steward, 09/11/2015 7:17 [facility] documented in this en counter Discharge Instructions Instructions Greta Liu, PharmD - 09/11/2015Can shower with the waterproof dressing i n place Keep working on range of motion stretches best you can on your own before therapy starts ou tpatient Call with any concerns Do not exceed 4,000 mg of acetaminophen (Tylenol) per day. Hydrocodone-acetaminophen (Sterling ) and Oxycodone-acetaminophen (Percocet) have 325 mg [...] Liu, PharmD - 09/11/2015 11:51 AM Berenice Anish Alejandro is s/p TKA and discharged home [...] the above and all questions were answered. Pharmaci st will follow-up with patient in one to two business days. Patient was provided with a lesly nciled discharge medication list as part of their AVS instructions. Encouraged patient to sh are medication list with healthcare providers and keep list current. Greta Morrissey PHARMRocky 09/11/2015 11:51 Agus Herrera MD - 09/10/2015 [...] | | | | | g/dL | [facility] | | | | [...] + + + + + | [facility]. | [address] | [place] | [phone] | | [facility] | | [address] | | | - LABORATORY | | [...] | | | FILTRATION | mL/min/1.73m2 | [facility] | | | [place] | RATE,ESTIMATED | | MEDICAL | | | | mL/min/1.79q6Uqux than | | CENTER - | | [...] | ine Ratio | | | [facility] | | | | | | MEDICAL [...] + | [facility] | [address] | [place] | [phone] | | [facility] | | [address] | | | - LABORATORY | | [address] | [place] | [phone] | | [facility] | | [address] | | | - LABORATORY | | [...] | | | FILTRATION | mL/min/1.73m2 | [facility] | | | [place] | RATE,ESTIMATED | | MEDICAL | | | | mL/min/1.80q9Uiiu than | | CENTER - | | [...] ST. | [address] | [place] | [phone] | | [facility] | | [address] | | | - LABORATORY | | [...] | | | | | g/dL | [facility] | | | | [...] | + + + + + | [facility] | [address] | [place] | [phone] | | [facility] | | [address] | | | - LABORATORY | | [...] | | | FILTRATION | mL/min/1.73m2 | [facility] | | | [place] | RATE,ESTIMATED | | MEDICAL | | | | mL/min/1.08f2Igzk than | | CENTER - | | [...] | | ine Ratio | | | [facility] | | [...] [address] | [place] | [phone] | | [facility] | | [address] | | | - LABORATORY | | [...] documented in this encounter Administered Medications + +--------+ + +------+ + | Medication Order | MAR | Action | Dose | Rate | Site | | | Action | Date | | | | + +--------+ + +------+ + | ketamine 30 mg, morphine (PF) | Given | 09/08/19 | 52.6 mLs | | Surgical | | 10 mg, ketorolac (TORADOL) 30 mg | | 16 3:56 | | | Site | | in ropivacaine (NAROPIN) 50 mL | | PM PDT | | | | | OpTesia mixture PRN, Starting | | | | | | | 09/08/15 at 1556, Intra-op | | | | | | + +--------+ + +------+ + +---+---+ | | | +---+---+ + +-------+ +-----+---+ + | vancomycin injection PRN, | Given | 09/08/19 | 1 g | | Other | | Starting 09/08/15 at 1456, | | 16 4:07 | | | (Comment | | Intra-op | | PM PDT | | | ) | + +-------+ +-----+---+ + +---+---+ | | | +---+---+ documented in this encounter
--- OUTSIDE RECORDS SUMMARY | ~2019-09-25 | XMS | Encounter Summary ---
Demographics + + + | Address | [address] | | | [place] [address] | + + + | Home Phone | | + + + | Preferred Language | Unknown | + + + | Marital Status | | + + + | Congregation Affiliation | 1027 | + + + [...] [place] | | | | | [address] | | + + + + + Care Team Providers + +------+ + | Care Fire Control Officer Name | Role | Phone | + +------+ + PCP | Unavailable | + +------+ + Encounter Details +--------+ + + + + | Date | Type | Department | Care Team | Description | +--------+ + + + + | 12/24/ | Hospital | [facility] | | Closed Fracture of | | 2005 - | Encounter | CENTER SURGICAL [address] | | Unspecified Part of | | | | [address] | | Neck of Femur (HCC) | | 12/27/ | | [place], [place] | | | | 2005 | | [address] | | | | | | [phone] | | | +--------+ + + + [...]
--- OUTSIDE RECORDS SUMMARY | ~2019-09-25 | XMS | Encounter Summary ---
Demographics + + + | Address | [address] | | | [place] [address] | + + + | Home Phone | | + + + | Preferred Language | Unknown | + + + | Marital Status | | + + + | Moravian Affiliation | 1027 | + + + | Race | Unknown | + + + | Ethnic Group | Unknown | + + + Author + + + | Author | [facility] | | | and [place] | + + + | Organization | [facility] | | | [...] [place] | | | | | [address] | | + + + + + Care Team Providers + +------+ + | Care Senior Marketing Analyst Name | Role | Phone | + +------+ + | Jhonny Jimenez MD | PCP | | + +------+ + Reason for Visit + + + | Reason | Comments | + + + | Medical Clearance | | + + + Encounter Details +--------+ + + + + | Date | Type | Department | Care Team | Description | +--------+ + + + + | 07/22/ | Emergency | [facility] | Boom Ceja, | Medical clearance | | 2019 | | MED CTR EMERGENCY | [address] | for psychiatric | | | | CENTER [address] | [place] | admission/treatment | | | | [place] | [address] | (Primary Dx); | | | | [address] | | Methamphetamine | | | | [phone] | Nabor Galvez MD | abuse ([facility]); Alcohol | | | | | [address] | abuse | | | | | [place] | | | | | | [address] | | | | | | | | +--------+ + + + [...] + + + | Blood Pressure | 115/58 | 07/23/2019 10:44 PM | | | | | PDT | | + + + + + | Pulse | 106 | 07/23/2019 10:44 PM | | | | | PDT | | + + + + + | Temperature | 35.6 C (96.1 F) | 07/23/2019 10:01 PM | | | | | PDT | | + + + + + | Respiratory Rate | 16 | 07/23/2019 10:44 PM | | | | | PDT | | + + + + + | Oxygen Saturation | 92% | 07/23/2019 10:44 PM | | | | | PDT | | + + + + + | Inhaled Oxygen | - | - | | | Concentration | | | | + + + + + | Weight | 104.3 kg (230 lb) | 07/23/2019 7:18 PM | | | | | PDT | | + + + + + | Height | 185.4 cm (6' 1") | 07/23/2019 7:18 PM | | | | | PDT | | + + + + + | Body Mass Index | 30.34 | 07/23/2019 7:18 PM | | | | | PDT | | + + + + + documented in this encounter Discharge Instructions Instructions Boom Ceja MD - 07/23/2019You are medically cleared for further psychia tric care. There is no medical issue that will prevent you from seeking care for continued s ubstance abuse. documented in this encounter Medications at Time of Discharge + + + +---------+ + + | Medication | Sig | Dispensed | Refills | Start | End Date | | | | | | Date | | + + + +---------+ + + | albuterol 90 | Inhale 2 puffs into | 1 | 0 | 05/16/19 | | | mcg/puff | the lungs every 6 | Inhaler | | 19 | | | inhalerIndications: | hours as needed for | | | | | | Acute bronchitis | Wheezing. | | | | | | with bronchospasm | | | | | | + + + +---------+ + + | benzonatate | Take 1 capsule by | 30 | 0 | 05/16/19 | | | (GARY GAONA) | mouth 3 times daily | capsule | | 19 | | | 100 mg | as needed for Cough. | | | | | | capsuleIndications: | | | | | | | Acute bronchitis | | | | | | | with bronchospasm | | | | | | + + + +---------+ + + | CAFFEINE PO | Take by mouth. | | 0 | | | + + + +---------+ + + | lisinopril | Take 40 mg by mouth | | 0 | | | | (PRINIVIL,ZESTRIL) | Daily. | | | | | | 40 MG tablet | | | | | | + + + +---------+ + + | nicotine | 2 mg. | | 0 | | | | (NICORETTE) 2 mg gum | | | | | | + + + +---------+ + + | tadalafil (CIALIS) | Take 1 tablet one | | 0 | 09/16/19 | | | 20 MG tablet | hour before sex. | | | 17 | | + + + +---------+ + + documented as of this encounter Plan of Treatment Not on filedocumented as of this encounter Procedures + +--------+ + + + | Procedure Name | Priori | Date/Time | Associated Diagnosis | Comments | | | ty | | | | + +--------+ + + + | DRUGS OF ABUSE, | STAT | 07/23/2019 | | Results for this | | SCREEN, URINE | | 9:51 PM | | procedure are in the | | | | PDT | | results section. | + +--------+ + + + | EXTRA GOLD TOP TUBE | Routin | 07/23/2019 | | Results for this | | | e | 8:34 PM | | procedure are in the | | | | PDT | | results section. | + +--------+ + + + | CBC WITH | STAT | 07/23/2019 | | Results for this | | DIFFERENTIAL | | 8:17 PM | | procedure are in the | | | | PDT | | results section. | + +--------+ + + + | ALCOHOL | STAT | 07/23/2019 | | Results for this | | | | 8:17 PM | | procedure are in the | | | | PDT | | results section. | + +--------+ + + + | ACETAMINOPHEN LEVEL | STAT | 07/23/2019 | | Results for this | | | | 8:17 PM | | procedure are in the | | | | PDT | | results section. | + +--------+ + + + | SALICYLATE LEVEL | STAT | 07/23/2019 | | Results for this | | | | 8:17 PM | | procedure are in the | | | | PDT | | results section. | + +--------+ + + + | COMPREHENSIVE | STAT | 07/23/2019 | | Results for this | | METABOLIC PANEL | | 8:17 PM | | procedure are in the | | | | PDT | | results section. | + +--------+ + + + documented in this encounter Results Drugs of Abuse, Screen, Urine (07/23/2019 9:51 PM PDT) + + + + + + | Component | Value | Ref Range | Performed | Pathologist | | | | | At | Signature | + + + + + + | Amphetamine | Positive (A) | Negative | [facility] | | | Screen, | | | [facility] | | | Urine | | | MEDICAL | | | | | | CENTER - | | | | | | LABORATORY | | + + + + + + | Barbiturate | Negative | Negative | [facility] | | | s Screen, | | | [facility] | | | Urine | | | MEDICAL | | | | | | CENTER - | | | | | | LABORATORY | | + + + + + + | Benzodiazep | Negative | Negative | [facility] | | | angel | | | [facility] | | | Screen, | | | MEDICAL | | | Urine | | | CENTER - | | | | | | LABORATORY | | + + + + + + | Cannabinoid | Negative | Negative | [facility] | | | s Screen, | | | [facility] | | | Urine | | | MEDICAL | | | | | | CENTER - | | | | | | LABORATORY | | + + + + + + | Cocaine | Negative | Negative | [facility] | | | Screen, | | | [facility] | | | Urine | | | MEDICAL | | | | | | CENTER - | | | | | | LABORATORY | | + + + + + + | Methadone | Negative | Negative | [facility] | | | Screen, | | | [facility] | | | Urine | | | MEDICAL | | | | | | CENTER - | | | | | | LABORATORY | | + + + + + + | Opiates | Negative | Negative | [facility] | | | Screen, | | | [facility] | | | Urine | | | MEDICAL | | | | | | CENTER - | | | | | | LABORATORY | | + + + + + + + + | Specimen | + + | Urine - Urine | | specimen obtained by | | clean catch | | procedure (specimen) | + + + + + + + | Performing | Address | City/State/Zipcode | Phone Number | | Organization | | | | + + + + + | [facility] | [address] | [place] | [phone] | | [facility] | | [address] | | | - LABORATORY | | | | + + + + + Extra Gold Top Tube (07/23/2019 8:34 PM PDT) + +-------+ + + + | Component | Value | Ref Range | Performed | Pathologist | | | | | At | Signature | + +-------+ + + + | Extra Gold | Done | | [facility] | | | Top Tube | | | [facility] | | [...] + | [facility] | [address] | [place] | [phone] | | [facility] | | [address] | | | - LABORATORY | | | | + + + + + Salicylate Level (07/23/2019 8:17 PM PDT) + +-------+ + + + | Component | Value | Ref Range | Performed | Pathologist | | | | | At | Signature | + +-------+ + + + | Salicylate | <3.0 | <30.1 mg/dL | [facility] | | | Level | | | [facility] | | [...] + + | [facility] | [address] | [place] | [phone] | | [facility] | | [address] | | | - LABORATORY | | | | + + + + + Acetaminophen Level (07/23/2019 8:17 PM PDT) + +-------+ + + + | Component | Value | Ref Range | Performed | Pathologist | | | | | At | Signature | + +-------+ + + + | Acetaminoph | <2 | <=2 ug/mL | [facility] | | | en Level | | | [facility] | | [...] + | [facility] | [address] | [place] | [phone] | | [facility] | | [address] | | | - LABORATORY | | | | + + + + + Ethanol (07/23/2019 8:17 PM PDT) + +--------+ + + + | Component | Value | Ref Range | Performed | Pathologist | | | | | At | Signature | + +--------+ + + + | ALCOHOL, | 57 (H) | <10 mg/dL | [facility] | | | SERUM/PLASM | | | [facility] | | | A | | | MEDICAL | | | | | | CENTER - | | | | | | LABORATORY | | + +--------+ + + + + + | Specimen | + + | Blood | + + + + + + + | Performing | Address | City/State/Zipcode | Phone Number | | Organization | | | | + + + + + | [facility] | [address] | [place] | [phone] | | [facility] | | [address] | | | - LABORATORY | | | | + + + + + Comprehensive Metabolic Panel (07/23/2019 8:17 PM PDT) + + + + + + | Component | Value | Ref Range | Performed | Pathologist | | | | | At | Signature | + + + + + + | Na | 136 | 136 - 145 | [facility] | | | | | mmol/L | [facility] | | | | | | MEDICAL | | | | | | CENTER - | | | | | | LABORATORY | | + + + + + + | K | 4.3 | 3.4 - 5.1 | [facility] | | | | | mmol/L | [facility] | | | | | | MEDICAL | | | | | | CENTER - | | | | | | LABORATORY | | + + + + + + | Cl | 102 | 98 - 107 mmol/L | [facility] | | | | | | [facility] | | | | | | MEDICAL | | | | | | CENTER - | | | | | | LABORATORY | | + + + + + + | CO2 | 23 | 20 - 31 mmol/L | [facility] | | | | | | [facility] | | | | | | MEDICAL | | | | | | CENTER - | | | | | | LABORATORY | | + + + + + + | Anion Gap | 11 | 3 - 16 mmol/L | [facility] | | | | | | [facility] | | | | | | MEDICAL | | | | | | CENTER - | | | | | | LABORATORY | | + + + + + + | Glucose | 77 | 60 - 106 mg/dL | [facility] | | | | | | [facility] | | | | | | MEDICAL | | | | | | CENTER - | | | | | | LABORATORY | | + + + + + + | BUN | 22 | 9 - 23 mg/dL | [facility] | | | | | | [facility] | | | | | | MEDICAL | | | | | | CENTER - | | | | | | LABORATORY | | + + + + + + | Creatinine | 1.52 (H) | 0.70 - 1.30 | [facility] | | | | | mg/dL | [facility] | | | | | | MEDICAL | | | | | | CENTER - | | | | | | LABORATORY | | + + + + + + | eGFR if not | 48 (L)Comment: | >=60 | [facility] | | | | GLOMERULAR FILTRATION | mL/min/1.73m2 | [facility] | | | [place] | RATE,ESTIMATED | | MEDICAL | | | | mL/min/1.22l0Ohdf than | | CENTER - | | [...] + + + + | Calcium | 10.1 | 8.7 - 10.4 | [facility] | | | | | mg/dL | [facility] | | | | | | MEDICAL | | | | | | CENTER - | | | | | | LABORATORY | | + + + + + + | Albumin | 4.6 | 3.2 - 4.8 g/dL | [facility] | | | | | | [facility] | | | | | | MEDICAL | | | | | | CENTER - | | | | | | LABORATORY | | + + + + + + | Bilirubin | 1.0 | 0.3 - 1.2 mg/dL | [facility] | | | Total | | | [facility] | | | | | | MEDICAL | | | | | | CENTER - | | | | | | LABORATORY | | + + + + + + | Total | 7.1 | 5.7 - 8.2 g/dL | [facility] | | | Protein | | | [facility] | | | | | | MEDICAL | | | | | | CENTER - | | | | | | LABORATORY | | + + + + + + | AST | 60 (H) | 0 - 34 U/L | [facility] | | | | | | [facility] | | | | | | MEDICAL | | | | | | CENTER - | | | | | | LABORATORY | | + + + + + + | ALT | 43 | 10 - 49 U/L | [facility] | | | | | | [facility] | | | | | | MEDICAL | | | | | | CENTER - | | | | | | LABORATORY | | + + + + + + | Alkaline | 67 | 46 - 116 U/L | [facility] | | | Phosphatase | | | [facility] | | | | | | MEDICAL | | | | | | CENTER - | | | | | | LABORATORY | | + + + + + + | Globulin | 2.5 | 2.1 - 3.8 g/dL | [facility] | | | | | | [facility] | | | | | | MEDICAL | | | | | | CENTER - | | | | | | LABORATORY | | + + + + + + | Albumin/Soco | 1.8 | 0.8 - 1.9 | [facility] | | | bulin Ratio | | | [facility] | | | | | | MEDICAL | | | | | | CENTER - | | | | | | LABORATORY | | + + + + + + | BUN/Creatin | 14.5 | | [facility] | | | ine [...] + | [facility] | [address] | [place] | [phone] | | [facility] | | [address] | | | - LABORATORY | | | | + + + + + CBC with Differential (07/23/2019 8:17 PM PDT) + + + + + + | Component | Value | Ref Range | Performed | Pathologist | | | | | At | Signature | + + + + + + | WBC | 11.5 (H) | 4.0 - 11.0 K/uL | [facility] | | | | | | [facility] | | | | | | MEDICAL | | | | | | CENTER - | | | | | | LABORATORY | | + + + + + + | RBC | 5.02 | 4.30 - 5.70 | [facility] | | | | | M/uL | [facility] | | | | | | MEDICAL | | | | | | CENTER - | | | | | | LABORATORY | | + + + + + + | Hemoglobin | 15.7 | 13.5 - 18.0 | [facility] | | | | | g/dL | [facility] | | | | | | MEDICAL | | | | | | CENTER - | | | | | | LABORATORY | | + + + + + + | Hematocrit | 45.7 | 40.0 - 51.0 % | [facility] | | | | | | [facility] | | | | | | MEDICAL | | | | | | CENTER - | | | | | | LABORATORY | | + + + + + + | MCV | 91.0 | 83.0 - 101.0 fL | [facility] | | | | | | [facility] | | | | | | MEDICAL | | | | | | CENTER - | | | | | | LABORATORY | | + + + + + + | MCH | 31.3 | 28.0 - 35.0 pg | [facility] | | | | | | [facility] | | | | | | MEDICAL | | | | | | CENTER - | | | | | | LABORATORY | | + + + + + + | MCHC | 34.4 | 32.0 - 36.0 | [facility] | | | | | g/dL | [facility] | | | | | | MEDICAL | | | | | | CENTER - | | | | | | LABORATORY | | + + + + + + | RDW-CV | 13.2 | <15.0 % | [facility] | | | | | | [facility] | | | | | | MEDICAL | | | | | | CENTER - | | | | | | LABORATORY | | + + + + + + | RDW-SD | 43.6 | 35.1 - 46.3 fL | [facility] | | | | | | [facility] | | | | | | MEDICAL | | | | | | CENTER - | | | | | | LABORATORY | | + + + + + + | Platelet | 260 | 140 - 440 K/uL | [facility] | | | Count | | | [facility] | | | | | | MEDICAL | | | | | | CENTER - | | | | | | LABORATORY | | + + + + + + | MPV | 10.6 | 6.5 - 12.4 fL | [facility] | | | | | | [facility] | | | | | | MEDICAL | | | | | | CENTER - | | | | | | LABORATORY | | + + + + + + | % | 48.8 | 45.0 - 82.0 % | [facility] | | | Neutrophils | | | [facility] | | | | | | MEDICAL | | | | | | CENTER - | | | | | | LABORATORY | | + + + + + + | % | 33.3 | 20.0 - 45.0 % | [facility] | | | Lymphocytes | | | [facility] | | | | | | MEDICAL | | | | | | CENTER - | | | | | | LABORATORY | | + + + + + + | % Monocytes | 12.4 (H) | 4.0 - 12.0 % | [facility] | | | | | | [facility] | | | | | | MEDICAL | | | | | | CENTER - | | | | | | LABORATORY | | + + + + + + | % | 4.1 | 0.0 - 5.0 % | [facility] | | | Eosinophils | | | [facility] | | | | | | MEDICAL | | | | | | CENTER - | | | | | | LABORATORY | | + + + + + + | % Basophils | 0.9 | 0.0 - 1.0 % | [facility] | | | | | | [facility] | | | | | | MEDICAL | | | | | | CENTER - | | | | | | LABORATORY | | + + + + + + | % Immature | 0.5 (H)Comment: | 0.0 - 0.4 % | [facility] | | | Granulocyte | Preliminary studies have | | [facility] | | | s | indicated the IG% | | MEDICAL | | | | and/or IG# show promise | | CENTER - | | | | as an early indicator | | LABORATORY | | | | for infection. | | | | + + + + + + | Absolute | 5.61 | 1.80 - 8.50 | [facility] | | | Neutrophils | | K/uL | [facility] | | | | | | MEDICAL | | | | | | CENTER - | | | | | | LABORATORY | | + + + + + + | Absolute | 3.83 (H) | 0.60 - 3.20 | [facility] | | | Lymphocytes | | K/uL | [facility] | | | | | | MEDICAL | | | | | | CENTER - | | | | | | LABORATORY | | + + + + + + | Absolute | 1.42 (H) | 0.00 - 1.00 | [facility] | | | Monocytes | | K/uL | [facility] | | | | | | MEDICAL | | | | | | CENTER - | | | | | | LABORATORY | | + + + + + + | Absolute | 0.47 (H) | 0.00 - 0.40 | [facility] | | | Eosinophils | | K/uL | [facility] | | | | | | MEDICAL | | | | | | CENTER - | | | | | | LABORATORY | | + + + + + + | Absolute | 0.10 | 0.00 - 0.10 | [facility] | | | Basophils | | K/uL | [facility] | | | | | | MEDICAL | | | | | | CENTER - | | | | | | LABORATORY | | + + + + + + | Absolute | 0.06 (H) | 0.00 - 0.03 | [facility] | | | Immature | | K/uL | [facility] | | | Granulocyte | | | MEDICAL | | | s | | | CENTER - | | | | | | LABORATORY | | + + + + + + | % nRBC | 0 | 0 - 2 per 100 | [facility] | | | | | WBCs | [facility] | | | | | | MEDICAL | | | | | | CENTER - | | | | | | LABORATORY | | + + + + + + | Absolute | 0.00 | 0.00 - 0.01 | [facility] | | | nRBC | | K/uL | [facility] | [...] ST[facility] | [address] | [place] | [phone] | | 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, unspecified | + + | Alcohol abuse Alcohol abuse, unspecified | + + documented in this encounter Administered Medications + +--------+ + +------+------+ | Medication Order | MAR | Action | Dose | Rate | Site | | | Action | Date | | | | + +--------+ + +------+------+ | 27-0.8 mg multivitamin | Given | 07/23/19 | 1 tablet | | | | 1 tablet 1 tablet, Oral, ONCE, | | 20 10:37 | | | | | 07/23/19 at 2210, For 1 dose | | PM PDT | | | | + +--------+ + +------+------+ +---+---+ | | | +---+---+ + +---------+ +--------+-------+---+ | sodium chloride 0.9% (NS) bolus | New Bag | 07/23/19 | 1,000 | 2000 | | | 1,000 mL 1,000 mL, Intravenous, | | 20 10:14 | mLs | mL/hr | | | Administer over 30 Minutes, | | PM PDT | | | | | ONCE, 07/23/19 at 2210, For 1 | | | | | | | dose | | | | | | + +---------+ +--------+-------+---+ +---+---+ | | | +---+---+ documented in this encounter
--- OUTSIDE RECORDS SUMMARY | ~2019-09-25 | XMS | Encounter Summary ---
Demographics + + + | Address | [address] | | | [place] [address] | + + + | Home Phone | | + + + | Preferred Language | Unknown | + + + | Marital Status | | + + + | Faith Affiliation | 1027 | + + + | Race | Unknown | + + + | Ethnic Group | Unknown | + + + Author + + + | Author | [facility] | | | and [place] | + + + | Organization | [facility] | | | [...] [place] | | | | | [address] | | + + + + + Care Team Providers + +------+ + | Care Automatic Cigar Wrapper Tender Name | Role | Phone | + [...] | Agus Wong MD | [address] | | | | | shoulder | [address] | [place], | | | | | pain | [place] | [place] | | | | | Procedures | [place], [place] | [address] | | | | | MRI Shoulder | [address] | Phone: | | | | | Left wo | Phone: | [phone] | | | | | Contrast | [phone] | Fax: | | | | | | Fax: | [phone] | | | | | | [phone] | | +--------+--------+ + + + + [...] | Agus Wong MD | [address] | | | | | shoulder | [address] | [place], | | | | | pain | [place] | | | | | Procedures | [place], [place] | [address] | | | | | MRI Shoulder | [address] | Phone: | | | | | Left wo | Phone: | [phone] | | | | | Contrast | [phone] | Fax: | | | | | | Fax: | [phone] | | | | | | [phone] | | +--------+--------+ + + + + Encounter Details +--------+ + + + + | Date | Type | Department | Care Team | Description | +--------+ + + + + | 10/10/ | Hospital | [facility] | Agus Steward, | Left shoulder pain | | 2015 | Encounter | MED CTR MRI [address] | [address] | | | | | [place], | [place], [place] | | | | | [place] [address] | [address] | | | | | [phone] | | | +--------+ + + + [...] CUFF TEAR. COMPARISON: Left shoulder x-ray | [facility] | | 09/22/2014 TECHNIQUE: Multiplanar, multisequence MRI images of the [facility] | | left shoulder were obtained [...] + | [facility] [facility] | [address] | [place] | [phone] | | [facility] | | [address] | | | - IMAGING | | | | + + + + + documented in this encounter Visit Diagnoses + + | Diagnosis | + + | Left shoulder pain Pain in joint, shoulder region | + + documented in this encounter"
--- OUTSIDE RECORDS SUMMARY | ~2019-09-25 | XMS | Encounter Summary ---
Demographics + + + | Address | [address] | | | [place] [address] | + + + | Home Phone | | + + + | Preferred Language | Unknown | + + + | Marital Status | | + + + | Oriental Orthodox Affiliation | 1027 | + + + | Race | Unknown | + + + | Ethnic Group | Unknown | + + + Author + + + | Author | [facility] | | | and [place] | + + + | Organization | [facility] | | [...] [place] | | | | | [address] | | + + + + + Care Team Providers + +------+ + | Care Radio Host Name | Role | Phone | + +------+ + | Jhonny Jimenez MD | PCP | | + +------+ + Reason for Visit +--------+ + | Reason | Comments | +--------+ + | Other | Rossi denial | +--------+ + Encounter Details +--------+ + + + + | Date | Type | Department | Care Team | Description | +--------+ + + + + | 11/11/ | Telephone | [facility] [place] | [facility], | Other ([place] | | 2015 | | GASTROENTEROLOGY | [address] | attila) | | | | [address] | [place], [address] | | | | | [address] [place], [place] | [place], [place] | | | | | [address] | [address] | | | | | [phone] | | | +--------+ + + + [...]
--- OUTSIDE RECORDS SUMMARY | ~2019-09-25 | XMS | Encounter Summary ---
Demographics + + + | Address | [address] | | | [place] [address] | + + + | Home Phone | | + + + | Preferred Language | Unknown | + + + | Marital Status | | + + + | Amish Affiliation | 1027 | + + + | Race | Unknown | + + + | Ethnic Group | Unknown | + + + Author + + + | Author | [facility] | | | and [place] | + + + | Organization | [facility] | | | [...] [place] | | | | | [address] | | + + + + + Care Team Providers + +------+ + | Care Construction Millwright Name | Role | Phone | + +------+ + | Jhonny Jimenez MD | PCP | | + +------+ + Encounter Details +--------+ + + + + | Date | Type | Department | Care Team | Description | +--------+ + + + + | 05/16/ | Imaging | [facility] [place] [facility] | David [facility] | | | 2018 | Exam | [address] | | [address] [place] | [place], [place] | | | | | [place] [address] | [address] | | | | | [phone] | | | +--------+ + + + [...] + +--------+ + + + | XR CHEST PA AND | STAT | 05/16/2018 | Acute bronchitis | Results for this | | LATERAL | | 1:48 PM | with bronchospasm | procedure are in the | | | | PST | | results section. | + +--------+ + + + documented in this encounter Results XR Chest PA and Lateral (05/16/2018 1:48 PM PST) + + | Specimen | + + | | + + + + + | Narrative | Performed At | + + + | CLINICAL INFORMATION: productive cough. COMPARISON: None | [facility] | | available. FINDINGS: Frontal and lateral views of the chest. | | | Lungs: No focal airspace disease, pleural effusion, or pneumothorax. | | | Heart/mediastinum: Cardiac silhouette is of normal size. Central | | | pulmonary vasculature has a normal appearance. Bones: No acute | | | osseous abnormality appreciated. IMPRESSION - Negative 2 view | | | chest. Dictated and Signed by: Geovany Babb MD | | | Electronically signed: 05/16/2018 2:43 PM | | + + + + + | Procedure Note | + + | Gabe, Fidencio Results In - 05/16/2018 2:46 PM PST CLINICAL INFORMATION: productive cough. | | | | COMPARISON: None available. | | | | FINDINGS: | | Frontal and lateral views of the chest. | | | | Lungs: No focal airspace disease, pleural effusion, or pneumothorax. | | | | Heart/mediastinum: Cardiac silhouette is of normal size. Central pulmonary | | vasculature has a normal appearance. | | | | Bones: No acute osseous abnormality appreciated. | | | | IMPRESSION - Negative 2 view chest. | | | | Dictated and Signed by: Geovany Babb MD | | Electronically signed: 05/16/2018 2:43 PM | + + + +---------+ + + | Performing | Address | City/State/Zipcode | Phone Number | | Organization | | | | + +---------+ + + | [facility] | | | | + +---------+ + + documented in this encounter Visit Diagnoses Not on filedocumented in this encounter"
--- OUTSIDE RECORDS SUMMARY | ~2019-09-25 | XMS | Encounter Summary ---
Demographics + + + | Address | [address] | | | [place] [address] | + + + | Home Phone | | + + + | Preferred Language | Unknown | + + + | Marital Status | | + + + | Rastafarian Affiliation | 1027 | + + + | Race | Unknown | + + + | Ethnic Group | Unknown | + + + Author + + + | Author | [facility] | | | and [place] | + + + | Organization | [facility] | | | [...] [place] | | | | | [address] | | + + + + + Care Team Providers + +------+ + | Care Ruby On Rails Web Developer Name | Role | Phone | + +------+ + | Jhonny Jimenez MD | PCP | | + +------+ + Reason for Visit + + + | Reason | Comments | + + + | Follow-up | Follow up Left shoulder MRI results | + + + Encounter Details +--------+---------+ + + + | Date | Type | Department | Care Team | Description | +--------+---------+ + + + | 11/12/ | Office | [facility] | Agus Steward, | Left rotator cuff | | 2015 | Visit | ORTHOPEDIC SURGERY | [address] [place] [address] | tear (Primary Dx) | | | | [address] [facility] [address] | [place], [place] | | | | | [place], [place] | [address] | | | | | [address] | | | | | | [phone] | | | +--------+---------+ + + + [...] + + + | Blood Pressure | - | - | | + + + + + | Pulse | - | - | | + + + + + | Temperature | - | - | | + + + + + | Respiratory Rate | - | - | | + + + + + | Oxygen Saturation | - | - | | + + + + + | Inhaled Oxygen | - | - | | | Concentration | | | | + + + + + | Weight | 106.6 kg (235 lb) | 11/12/2014 8:04 AM | | | | | PDT | | + + + + + | Height | 185.4 cm (6' 1") | 11/12/2014 8:04 AM | | | | | PDT | | + + + + + | Body Mass Index | 31 | 11/12/2014 8:04 AM | | | | | PDT | | + + + + + documented in this encounter Progress Notes Agus Steward MD - 11/12/2014 8:28 AM PDTPatient returns follow up left shoulder MRI He clearly has a rotator cuff tear - anterior portion of supraspinatous He has a type 2 acromion and has a prominent distal clavicle but it is nontender and asympt omatic We discussed left shoulder acromioplasty and RC repair surgery The restrictions needed after surgery discussed at length He will consider his timing at work and let us know 10 min face time spent the majority counseling as above documented in this encounter Plan of Treatment Not on filedocumented as of this encounter Visit Diagnoses + + | Diagnosis | + + | Left rotator cuff tear - Primary Rotator cuff (capsule) sprain | + + documented in this encounter
--- OUTSIDE RECORDS SUMMARY | ~2019-09-25 | XMS | Encounter Summary ---
Demographics + + + | Address | [address] | | | [place] [address] | + + + | Home Phone | | + + + | Preferred Language | Unknown | + + + | Marital Status | | + + + | Yazidism Affiliation | 1027 | + + + | Race | Unknown | + + + | Ethnic Group | Unknown | + + + Author + + + | Author | [facility] | | | and [place] | + + + | Organization | [facility] | | | and [...] [place] | | | | | [address] | | + + + + + Care Team Providers + +------+ + | Care Ophthalmology Assistant Name | Role | Phone | + +------+ + PCP | Unavailable | + +------+ + Encounter Details +--------+ + + + + | Date | Type | Department | Care Team | Description | +--------+ + + + + | 03/16/ | Hospital | [facility] | | | | 2000 | Encounter | [facility] EMERGENCY | | | | | | CENTER [address] | | | | | | [place] | | | | | | [address] | | | | | | [phone] | | | +--------+ + + + [...]
--- OUTSIDE RECORDS SUMMARY | ~2019-09-25 | XMS | Encounter Summary ---
Demographics + + + | Address | [address] | | | [place] [address] | + + + | Home Phone | | + + + | Preferred Language | Unknown | + + + | Marital Status | | + + + | Oriental Orthodox Affiliation | 1027 | + + + | Race | Unknown | + + + | Ethnic Group | Unknown | + + + Author + + + | Author | [facility] | | | and [place] | + + + | Organization | [facility] | | | and [place] | + + + | Address | Unknown | + + + | Phone | Unavailable | + + + Support + + + + + | Name | Relationship | Address | Phone | + + + + + | Katt Martinez | ECON | [address] | | | | | [place] | | | | | [place] | | | | | [address] | | + + + + + Care Team Providers + +------+ + | Care Refrigerator Repair Technician Name | Role | Phone | + +------+ + | Allegra Jimenez MD | PCP | | + +------+ + Reason for Referral Diagnostic/Screening (Routine) +--------+--------+ + + + + | Status | Reason | Specialty | Diagnoses / | Referred By | Referred To | | | | | Procedures | Contact | Contact | +--------+--------+ + + + + | Closed | | Radiology | Diagnoses | [place], | [facility] | | | | | Left | Agus Wong MD | [address] | | | | | shoulder | [address] | [place], | | | | | pain | [place] | [place] | | | | | Procedures | [place], [place] | [address] | | | | | MRI Shoulder | [address] | Phone: | | | | | Left wo | Phone: | [phone] | | | | | Contrast | [phone] | Fax: | | | | | | Fax: | [phone] | | | | | | [phone] | | +--------+--------+ + + + + Reason for Visit + + + | Reason | Comments | + + + | Knee Pain | right knee pain patient stated his knee gives out/prior surgery | | | 10 years ago | + + + Evaluate & Treat (Routine) +--------+--------+ + + + + | Status | Reason | Specialty | Diagnoses / | Referred By | Referred To | | | | | Procedures | Contact | Contact | +--------+--------+ + + + + | Closed | | Orthopedic | Diagnoses | Tony, | Bin, | | | | Surgery | Viral | Allegra Kiran MD | Agus Wong MD | | | | | hepatitis A | [address] | [address] | | | | | with hepatic | [address] | [place], | | | | | coma Old | [place], | [place] [address] | | | | | disruption | [place] [address] | Phone: | | | | | of anterior | Phone: | [phone] | | | | | cruciate | [phone] | Fax: | | | | | ligament | Fax: | [phone] | | | | | Unspecified | [phone] | | | | | | essential | | | | | | | hypertension | | | | | | | Tobacco | | | | | | | use disorder | | | +--------+--------+ + + + + Encounter Details +--------+---------+ + + + | Date | Type | Department | Care Team | Description | +--------+---------+ + + + | 09/17/ | Office | [facility] | Agus Steward, | Right knee pain | | 2015 | Visit | ORTHOPEDIC SURGERY | MD [address] [place] [address] | (Primary Dx); Left | | | | [address] [facility] | [place] | shoulder pain | | | | [place] | [address] | | | | | [address] | | | | | | [phone] | | | +--------+---------+ + + + [...] Temperature | 36.6 C (97.9 F) | 09/17/2014 10:32 AM | | | | | PDT [...] + + + + | Weight | 108 kg (238 lb) | 09/17/2014 10:32 AM | | | | | PDT | | + + + + + | Height | 182.9 cm (6') | 09/17/2014 10:32 AM | | | | | PDT | | + + + + + | Body Mass Index | 32.28 | 09/17/2014 10:32 AM | | | | | PDT | | + + + + + documented in this encounter Progress Notes Agus Steward MD - 09/17/2014 12:47 PM PDT [facility] OR[facility]IC [facility]GERY [address] [place] [id number] OFFICE NOTE AGUS STEWARD MD Patient: SATINEDR MARTINEZ Admitting: MR #: [id number] LOC: PT TYPE: Adm Date: 09/17/2014 : 1960 TODAY'S DATE: 09/17/2014 PATIENT IDENTIFICATION: 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 Left shoulder pain and weakness. 2. Right knee pain. HISTORY OF PRESENT ILLNESS: The patient initially made this appointment all about his rig ht knee. He has had longstanding problems with his right knee initially had a surgery in were his medial meniscus was removed through an open arthrotomy. He later had ACL lesly nstruction. He thought it was me who did it, but it was in the late and probably was Dr. Quinn. He also had right hip fracture surgery in 2000. His right knee has gotten worse and worse over time. It bothers him on a daily basis. He does not trust it, especia lly when he is up on a ladder. He is worried it will give out on him. He has pain that is barely diffuse, worse on the medial side, generally improved with rest. He does not wake up at night due to his knee. Subsequent to making this appointment, he had an injury to his left shoulder. He was lift ing something. He had acute pain and a pop, and this has been 6 weeks now with no substant ial improvement, and he wishes to have this evaluated. His pain is primarily anterolateral ly aggravated with attempts at overhead use. 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 His right shoulder is fine. He has had no previous injuries to his left shoulder. PREVIOUS MEDICAL HISTORY: Significant for hypertension. CURRENT MEDICATIONS: He takes Lisinopril. ALLERGIES: NO KNOWN DRUG ALLERGIES. PRIMARY CARE PHYSICIAN: Allegra Black MD. FAMILY HISTORY: Father at age 72. COPD, mother is alive and healthy. He has 3 kids . PERSONAL HABITS: He does not smoke, but he does chew 1 can every 3 days. No alcohol use. No recreational drug use. REVIEW OF SYSTEMS: Eyes: Positive glasses use. Ear, nose, throat: Negative. Respirator y: No asthma or wheezing, no chronic cough or hemoptysis. Cardiovascular: Positive hyper tension but no heart problems. No chest pain, palpitations, orthopnea. Gastrointestinal: History of hepatitis. No abdominal pain, heartburn, blood in stools. Genitourinary: No d ysuria. Musculoskeletal: As above. Skin: No rashes or skin lesions. Neurologic: No he adaches, strokes, TIA. Psychiatric: No depression or anxiety. Endocrine: No diabetes or thyroid disorder. PHYSICAL EXAMINATION: EXTREMITIES: His right knee has a far posterior scar from his meniscus surgery and a midl ine ACL reconstruction scar. He comes into full extension. He does have a positive Lachma n. He flexes down to the 120 degrees. He has palpable osteophytes on the medial compartme nt, both femur and tibia. Distally he has intact pedal pulses. Exam of his left shoulder : He has a negative drop arm, but he has significant pain with attempts at resisted abduct ion in the scapular plane. Negative brenden, negative reverse brenden, negative Cherokee sign. He is tender over the coracoacromial arch. Acromioclavicular joint is nontender. He has 70 degrees of external rotation, internal rotation thumb to the mid thoracic spine. DIAGNOSTIC DATA: X-rays of his right knee show severe and advanced uexk-oe-iaxy arthrosis . He has interference screws from a previous rrri-gnesxb-arwp patella autograft reconstruc tion. IMPRESSION: 1. Poip-au-kvbl severe and advanced degenerative arthritis of the right knee. The anish rayo history and treatment options were discussed. He is young for knee replacement and he is a very active individual. Ultimately, I think knee replacement is where he is headed. The reasons for not jumping in at his age were discussed at length today, and the specific ri sks of the procedure and a typical early recovery period outcome was discussed with the pot ential complications as well as the correction problems with knee replacement and future revi kristen surgery problems. 2. With regard to his left shoulder, it is very suspicious for an acute rotator cuff rupt ure. He has had symptoms for 6 weeks, and I see no role for physical therapy at this time. X-rays are not going to change. What we need to do is MRI to evaluate the integrity of th is cuff, and he will return if that has been obtained. AGUS STEWARD MD Dictated by AGUS STEWARD MD 09/17/2014 12:47:34 Transcribed on 09/17/2014 13:28:59 by [facility]# [id number] Confirmation #: [id number] cc: ALLEGRA JIMENEZ MD doc umented in this encounter Plan of Treatment Not on filedocumented as of this encounter Results MRI Shoulder Left wo Contrast (10/10/2014 12:26 PM PDT) + + | Specimen | + + | | + + + + + | Narrative | Performed At | + + + | MRI SHOULDER LEFT WO CONTRAST. 10/10/2014 11:56 AM HISTORY: | [facility] | | EVALUATE FOR ROTATOR CUFF TEAR. COMPARISON: Left shoulder x-ray | [facility] | | 09/22/2014 TECHNIQUE: Multiplanar, multisequence MRI images of the [facility] | | left shoulder were obtained without [...] + + | Performing | Address | City/[facility] | Phone Number | | Organization | | | | + + + + + | [facility] | [address] | [place] | [phone] | | [facility] | | [address] | | | - IMAGING | | | | + + + + + XR Knee Right 3 Vw (09/17/2014 10:29 AM PDT) + + | Specimen | + + | | + + + + + | Narrative | Performed At | + + + | XR KNEE RIGHT 3 VW 09/17/2014 10:29 AM HISTORY: right knee pain. | [facility] | | COMPARISON: 04/01/2013. FINDINGS: The right knee demonstrates | [facility] | | evidence for prior ACL repair with screw hardware and tunneling [facility] | | procedure. There is severe lateral joint space loss and moderate to | - IMAGING | | severe medial joint space loss. Moderate osteophytes are observed of | | | all 3 knee joint compartments. There is mild anterior subluxation of | | | the tibia relative to the femur. Degenerative changes are stable. | | | Again visualized is the osseous protuberance along the posterior | | | aspect of the distal femur that is stable and likely represents an | | | osteochondroma. Bone mineralization is normal. There is no joint | | | effusion. Soft tissues are unremarkable. Incidental evaluation of | | | the left knee shows mild medial compartment joint space loss that is | | | stable. IMPRESSION - Prior ACL repair of right knee with | | | extensive degenerative changes that are stable. 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 Dictated and | | | Signed by: Ciro Theodore MD Electronically signed: 09/17/2014 11:27 | | | AM | | + + + + + | Procedure Note | + + | Gabe, Rad Results In - 09/17/2014 11:30 AM PDT XR KNEE RIGHT 3 VW 09/17/2014 10:29 AM | | | | HISTORY: right knee pain. | | | | COMPARISON: 04/01/2013. | | | | FINDINGS: | | The right knee demonstrates evidence for prior ACL repair with screw hardware | | and tunneling procedure. There is severe lateral joint space loss and moderate | | to severe medial joint space loss. Moderate osteophytes are observed of all 3 | | knee joint compartments. There is mild anterior subluxation of the tibia | | relative to the femur. Degenerative changes are stable. Again visualized is the | | osseous protuberance along the posterior aspect of the distal femur that is | | stable and likely represents an osteochondroma. Bone mineralization is normal. | | There is no joint effusion. Soft tissues are unremarkable. | | | | Incidental evaluation of the left knee shows mild medial compartment joint space | | loss that is stable. | | | | IMPRESSION - | | Prior ACL repair of right knee with extensive degenerative changes that are | | stable. | | | | Stable osteochondroma of the distal right femoral shaft. | | | | Dictated and Signed by: Ciro Theodore MD | | Electronically signed: 09/17/2014 11:27 AM | + + + + + + + | Performing | Address | City/State/Zipcode | Phone Number | | Organization | | | | + + + + + | [facility] | [address] | [place] | [phone] | | [facility] | | [address] | | | - IMAGING | | | | + + + + + documented in this encounter Visit Diagnoses + + | Diagnosis | + + | Right knee pain - Primary Pain in joint, lower leg | + + | Left shoulder pain Pain in joint, shoulder region | + + documented in this encounter"
--- OUTSIDE RECORDS SUMMARY | ~2019-09-25 | XMS | Encounter Summary ---
Demographics + + + | Address | [address] | | | [place] [address] | + + + | Home Phone | | + + + | Preferred Language | Unknown | + + + | Marital Status | | + + + | Samaritan Affiliation | 1027 | + + + | Race | Unknown | + + + | Ethnic Group | Unknown | + + + Author + + + | Author | [facility] | | | and [place] | + + + | Organization | [facility] | | | [...] [place] | | | | | [address] | | + + + + + Care Team Providers + +------+ + | Care Postal Supervisor Name | Role | Phone | + +------+ + PCP | Unavailable | + +------+ + Encounter Details +--------+ + + + + | Date | Type | Department | Care Team | Description | +--------+ + + + + | 02/18/ | Hospital | [facility] | | | | 1998 | Encounter | MED CTR GENERIC OP | | | | | | CONV DEPT [address] | | | | | | [place], | | | | | | [place] [address] | | | | | | [phone] | | | +--------+ + + + [...]
--- OUTSIDE RECORDS SUMMARY | ~2019-09-25 | XMS | Encounter Summary ---
Demographics + + + | Address | [address] | | | [place] [address] | + + + | Home Phone | | + + + | Preferred Language | Unknown | + + + | Marital Status | | + + + | Mosque Affiliation | 1027 | + + + [...] [place] | | | | | [address] | | + + + + + Care Team Providers + +------+ + | Care Breaker Up Machine Operator Name | Role | Phone | + +------+ + PCP | Unavailable | + +------+ + Encounter Details +--------+ + + + + | Date | Type | Department | Care Team | Description | +--------+ + + + + | 07/02/ | Hospital | [facility] | | | | 2002 | Encounter | MED CTR LABORATORY | | | | | | [address] [place] | | | | | | [place] | | | | | | [address] | | | | | | [phone] | | | +--------+ + + + [...]
--- OUTSIDE RECORDS SUMMARY | ~2019-09-25 | XMS | Encounter Summary ---
Demographics + + + | Address | [address] | | | [place] [address] | + + + | Home Phone | | + + + | Preferred Language | Unknown | + + + | Marital Status | | + + + | Yarsani Affiliation | 1027 | + + + | Race | Unknown | + + + | Ethnic Group | Unknown | + + + Author + + + | Author | [facility] | | | and [place] | + + + | Organization | [facility] | | | [...] [place] | | | | | [address] | | + + + + + Care Team Providers + +------+ + | Care Conduit Reamer Operator Name | Role | Phone | + +------+ + | Jhonny Jimenez MD | PCP | | + +------+ + Reason for Visit + + + | Reason | Comments | + + + | Pre-op Exam | right total knee arthroplasty dos 09/08/15 | + + + Encounter Details +--------+---------+ + + + | Date | Type | Department | Care Team | Description | +--------+---------+ + + + | 09/03/ | Office | [facility] | Agus Steward, | Preop testing | | 2016 | Visit | ORTHOPEDIC SURGERY | MD [facility] | (Primary Dx); | | | | [address] | [place], [place] | Essential | | | | [place], [place] | [address] | hypertension, | | | | [address] | | hypertension with | | | | [phone] | | unspecified goal; | | | | | | Primary | | | | | | osteoarthritis of | | | | | | right knee; | | | | | | Hepatitis C virus | | | | | | infection without | | | | | | hepatic coma, | | | | | | unspecified | | | | | | chronicity | +--------+---------+ + + + Social History + +-------+ +--------+------+ | Tobacco Use | Types | Packs/Day | Years | Date | | | | | Used | | + +-------+ +--------+------+ | Never Smoker | | | | | + +-------+ +--------+------+ + +------+---+---+ | Smokeless Tobacco: | Chew | | | | Former User | | | | + +------+---+---+ [...] + + + | Blood Pressure | 117/69 | 09/04/2015 1:15 PM | | | | | PDT | | + + + + + | Pulse | 110 | 09/04/2015 1:15 PM | | | | | PDT | | + + + + + | Temperature | 36.2 C (97.1 F) | 09/04/2015 1:15 PM | | | | | PDT | | + + + + + | Respiratory Rate | 22 | 09/04/2015 1:15 PM | | | | | PDT | | + + + + + | Oxygen Saturation | 96% | 09/04/2015 1:15 PM | R/A | | | | PDT | | + + + + + | Inhaled Oxygen | - | - | | | Concentration | | | | + + + + + | Weight | 111.1 kg (245 lb) | 09/04/2015 1:15 PM | | | | | PDT | | + + + + + | Height | 185.4 cm (6' 1") | 09/04/2015 1:15 PM | | | | | PDT | | + + + + + | Body Mass Index | 32.32 | 09/04/2015 1:15 PM | | | | | PDT | | + + + + + documented in this encounter Progress Notes Agus Steward MD - 09/04/2015 4:59 PM PDTPatient returns to discuss his options for his right knee I previously had seen him for his knee and it has been raaj-je-viat osteoarthritic for shanta ral years He has been very active but he is having a harder and harder time remaining so He very much wishes to consider right total knee arthroplasty We had a long discussion today about what to expect with surgery, the inherent risks that w e take both medical and surgical and reasonable expectations for the postoperative recovery He is reexamined today and the films are reviewed with him This turned into a preoperative visit for right total knee arthroplasty Labs are pending All questions answered History and physical to follow 5: 00 PM PDTdocumented in this encounter Plan of Treatment + +---------+--------+ + + | Name | Type | Priori | Associated Diagnoses | Order Schedule | | | | ty | | | + +---------+--------+ + + | XR Chest PA and | Imaging | Routin | Preop testing | Expected: | | Lateral | | e | Essential | 09/04/2015, Expires: | | | | | Hypertension, | 09/04/2016 | | | | | Hypertension With | | | | | | Unspecified Goal | | | | | | Primary | | | | | | osteoarthritis of | | | | | | right knee | | + +---------+--------+ + + documented as of this encounter Procedures + +--------+ + + + | Procedure Name | Priori | Date/Time | Associated Diagnosis | Comments | | | ty | | | | + +--------+ + + + | URINALYSIS WITH | Routin | 09/04/2015 | Preop testing | Results for this | | MICROSCOPIC WITH | e | 2:18 PM | Essential | procedure are in the | | CULTURE IF INDICATED | | PDT | hypertension, | results section. | | | | | hypertension with | | | | | | unspecified goal | | | | | | Primary | | | | | | osteoarthritis of | | | | | | right knee | | + +--------+ + + + | CULTURE, MRSA | Routin | 09/04/2015 | Preop testing | Results for this | | | e | 2:17 PM | Essential | procedure are in the | | | | PDT | hypertension, | results section. | | | | | hypertension with | | | | | | unspecified goal | | | | | | Primary | | | | | | osteoarthritis of | | | | | | right knee | | + +--------+ + + + | ECG 12 LEAD | Routin | 09/04/2015 | Preop testing | Results for this | | | e | 2:02 PM | Essential | procedure are in the | | | | PDT | hypertension, | results section. | | | | | hypertension with | | | | | | unspecified goal | | | | | | Primary | | | | | | osteoarthritis of | | | | | | right knee | | + +--------+ + + + documented in this encounter Results PTT (09/04/2015 2:30 PM PDT) + +-------+ + + + | Component | Value | Ref Range | Performed | Pathologist | | | | | At | Signature | + +-------+ + + + | aPTT | 25 | 22 - 36 seconds | [facility] | | | | | [address] | [place] | [phone] | | [facility] | | [address] | | | - LABORATORY | | | | + + + + + Protime INR (09/04/2015 2:30 PM PDT) + + + + + + | Component | Value | Ref Range | Performed | Pathologist | | | | | At | Signature | + + + + + + | Prothrombin | 13.6 | 11.3 - 13.9 | [facility] | | | Time | | seconds | [facility] | | | | | | MEDICAL | | | | | | CENTER - | | | | | | LABORATORY | | + + + + + + | INR | 0.99Comment: Usual Oral | 0.90 - 1.10 | [...] + | [facility] | [address] | [place] | [phone] | | [facility] | | [address] | | | - LABORATORY | | | | + + + + + Hemoglobin (09/04/2015 2:30 PM PDT) + +-------+ + + + | Component | Value | Ref Range | Performed | Pathologist | | | | | At | Signature | + +-------+ + + + | Hemoglobin | 16.1 | 13.5 - 18.0 | [facility] | [...] + | [facility] | [address] | [place] | [phone] | | [facility] | | [address] | | | - LABORATORY | | | | + + + + + Hepatic Function Panel (09/04/2015 2:30 PM PDT) + +--------+ + + + | Component | Value | Ref Range | Performed | Pathologist | | | | | At | Signature | + +--------+ + + + | Bilirubin | 0.9 | 0.1 - 1.5 mg/dL | [facility] | | | Total | | | [facility] | | | | | | MEDICAL | | | | | | CENTER - | | | | | | LABORATORY | | + +--------+ + + + | Total | 6.6 | 6.0 - 7.8 g/dL | [facility] | | | Protein | | | [facility] | | | | | | MEDICAL | | | | | | CENTER - | | | | | | LABORATORY | | + +--------+ + + + | Albumin | 4.0 | 3.2 - 5.0 g/dL | [facility] | | | | | | [facility] | | | | | | MEDICAL | | | | | | CENTER - | | | | | | LABORATORY | | + +--------+ + + + | AST | 44 (H) | 10 - 42 U/L | [facility] | | | | | | [facility] | | | | | | MEDICAL | | | | | | CENTER - | | | | | | LABORATORY | | + +--------+ + + + | ALT | 60 (H) | 6 - 45 U/L | [facility] | | | | | | [facility] | | | | | | MEDICAL | | | | | | CENTER - | | | | | | LABORATORY | | + +--------+ + + + | Alkaline | 73 | 40 - 110 U/L | [facility] | | | Phosphatase | | | [facility] | | | | | | MEDICAL | | | | | | CENTER - | | | | | | LABORATORY | | + +--------+ + + + | Globulin | 2.6 | 2.1 - 3.8 g/dL | [facility] | | | | | | [facility] | | | | | | MEDICAL | | | | | | CENTER - | | | | | | LABORATORY | | + +--------+ + + + | Albumin/Soco | 1.5 | 0.8 - 2.0 | [facility] | | | bulin Ratio | | | [facility] | | | | | | MEDICAL | | | | | | CENTER - | | | | | | LABORATORY | | + +--------+ + + + | Bilirubin, | 0.20 | 0.00 - 0.20 | [facility] | | | Direct | | mg/dl | [facility] | | | | [...] + | [facility] | [address] | [place] | [phone] | | [facility] | | [address] | | | - LABORATORY | | | | + + + + + Basic Metabolic Panel (09/04/2015 2:30 PM PDT) + + + + + + | Component | Value | Ref Range | Performed | Pathologist | | | | | At | Signature | + + + + + + | Na | 141 | 136 - 149 | [facility] | | | | | mmol/L | [facility] | | | | | | MEDICAL | | | | | | CENTER - | | | | | | LABORATORY | | + + + + + + | K | 4.6 | 3.5 - 5.1 | [facility] | | | | | mmol/L | [facility] | | | | | | MEDICAL | | | | | | CENTER - | | | | | | LABORATORY | | + + + + + + | Cl | 109 | 98 - 109 mmol/L | [facility] | | | | | | [facility] | | | | | | MEDICAL | | | | | | CENTER - | | | | | | LABORATORY | | + + + + + + | CO2 | 25 | 24 - 31 mmol/L | [facility] [...] + + + + | Glucose | 109 | 70 - 109 mg/dL | [facility] [...] | | | | | mg/dL | [facility] | | | | | | MEDICAL | | | | | | CENTER - | | | | | | LABORATORY | | + + + + + + | eGFR if not | >60Comment: GLOMERULAR | >=60 | [facility] | | | | FILTRATION | mL/min/1.73m2 | [facility] | | | SCOTTISH | RATE,ESTIMATED | | MEDICAL | | | | mL/min/1.64r1Kklp than | | CENTER - | | [...] + + + + | Calcium | 9.4 | 8.3 - 10.5 | [facility] | | | | | mg/dL | [facility] | | | | | | MEDICAL | | | | | | CENTER - | | | | | | LABORATORY | | + + + + + + | BUN/Creatin | 18.7 | | [facility] | | | ine Ratio | | | [facility] | | [...] [address] | [place] | [phone] | | [facility] | | [address] | | | - LABORATORY | | | | + + + + + Platelet Count (09/04/2015 2:30 PM PDT) + +-------+ + + + | Component | Value | Ref Range | Performed | Pathologist | | | | | At | Signature | + +-------+ + + + | Platelet | 173 | 140 - 440 K/uL | [facility] | | | Count | | | [facility] | | | | | | MEDICAL | | | | | | CENTER - | | | | | | LABORATORY | | + +-------+ + + + | MPV | 9.0 | fL | [facility] | | | [...] + | [facility] | [address] | [place] | [phone] | | [facility] | | [address] | | | - LABORATORY | | | | + + + + + Urinalysis with Microscopic with Culture if Indicated (09/04/2015 2:18 PM PDT) + + + + + + | Component | Value | Ref Range | Performed | Pathologist | | | | | At | Signature | + + + + + + | Color, | Yellow | Light Yellow, | [facility] | | | Urine | | Yellow, Straw | [facility] | | | | | | MEDICAL | | | | | | CENTER - | | | | | | LABORATORY | | + + + + + + | Clarity | Clear | | [facility] | | | | | | [facility] | | | | | | MEDICAL | | | | | | CENTER - | | | | | | LABORATORY | | + + + + + + | pH, Urine | 6.0 | 5.0 - 8.0 | [facility] | | | | | | [facility] | | | | | | MEDICAL | | | | | | CENTER - | | | | | | LABORATORY | | + + + + + + | Specific | 1.017 | 1.001 - 1.030 | [facility] | | | [place], | | | [facility] | | | Urine | | | MEDICAL | | | | | | CENTER - | | | | | | LABORATORY | | + + + + + + | Protein, | Negative | Negative | [facility] | | | Urine | | | [facility] | | | | | | MEDICAL | | | | | | CENTER - | | | | | | LABORATORY | | + + + + + + | Blood, | Negative | Negative | [facility] | | | Urine | | | [facility] | | | | | | MEDICAL | | | | | | CENTER - | | | | | | LABORATORY | | + + + + + + | Glucose, | Negative | Negative | [facility] | | | Urine | | | [facility] | | | | | | MEDICAL | | | | | | CENTER - | | | | | | LABORATORY | | + + + + + + | Ketones, | Negative | Negative | [facility] | | | Urine | | | [facility] | | | | | | MEDICAL | | | | | | CENTER - | | | | | | LABORATORY | | + + + + + + | Bilirubin, | Negative | Negative | [facility] | | | Urine | | | [facility] | | | | | | MEDICAL | | | | | | CENTER - | | | | | | LABORATORY | | + + + + + + | Nitrite, | Negative | Negative | [facility] | | | Urine | | | [facility] | | | | | | MEDICAL | | | | | | CENTER - | | | | | | LABORATORY | | + + + + + + | Leukocyte | Negative | Negative | [facility] | | | Esterase, | | | [facility] | | | Urine | | | MEDICAL | | | | | | CENTER - | | | | | | LABORATORY | | + + + + + + | Urobilinoge | Negative | 0.2 mg/dL, 1.0 | [facility] | | | n, Urine | | mg/dL, Negative | [facility] | | | | | | MEDICAL | | | | | | CENTER - | | | | | | LABORATORY | | + + + + + + | White Blood | 0-2 | 0 - 2 /HPF | [facility] | | | Cells, | | | [facility] | | | Urine | | | MEDICAL | | | | | | CENTER - | | | | | | LABORATORY | | + + + + + + | Red Blood | 0-2 | 0 - 2 /HPF | [facility] | | | Cells, | | | [facility] | | | Urine | | | MEDICAL | | | | | | CENTER - | | | | | | LABORATORY | | + + + + + + | Squamous | 0-2 | 0 - 2 /LPF | [facility] | | | Epithelial | | | [facility] | | | Cells, | | | MEDICAL | | | Urine | | | CENTER - | | | | | | LABORATORY | | + + + + + + | Bacteria, | 1+ (A) | Negative /HPF | [facility] | | | Urine | | | [facility] | | | | | | MEDICAL | | | | | | CENTER - | | | | | | LABORATORY | | + + + + + + | Mucus, | Present (A) | Negative /LPF | [facility] | | | Urine | | | [facility] | | | | | | MEDICAL | | | | | | CENTER - | | | | | | LABORATORY | | + + + + + + | Urine | Urine Culture Not | | [facility] | | | Comment | Indicated | | [facility] | | | [...] + | [facility] | [address] | [place] | [phone] | | [facility] | | [address] | | | - LABORATORY | | | | + + + + + Culture, MRSA (09/04/2015 2:17 PM PDT) + + + + + + | Component | Value | Ref Range | Performed | Pathologist | | | | | At | Signature | + + + + + + | Culture | Negative for MRSA by | | [facility] | | | | chromogenic agar method | | [facility] | | | | | | MEDICAL | | | | | | CENTER - | | | | | | LABORATORY | | + + + + + + + + | Specimen | + + | Respiratory - Both | | anterior nares (body | | structure) | + + + + + + + | Performing | Address | City/State/Zipcode | Phone Number | | Organization | | | | + + + + + | [facility] | [address] | [place] | [phone] | | [facility] | | [address] | | | - LABORATORY | | | | + + + + + ECG 12 lead (09/04/2015 2:02 PM PDT) + + + + + + | Component | Value | Ref Range | Performed | Pathologist | | | | | At | Signature | + + + + + + | VENTRICULAR | 109 | BPM | [facility] | | | RATE EKG | | | | | + + + + + + | ATRIAL RATE | 109 | BPM | [facility] | | + + + + + + | P-R | 178 | ms | [facility] | | | INTERVAL | | | | | + + + + + + | QRS | 84 | ms | [facility] | | | DURATION | | | | | + + + + + + | Q-T | 318 | ms | [facility] | | | INTERVAL | | | | | + + + + + + | Q-T | 428 | ms | [facility] | | | INTERVAL | | | | | | (CORRECTED) | | | | | + + + + + + | P WAVE AXIS | 45 | degrees | [facility] | | + + + + + + | QRS AXIS | 16 | degrees | [facility] | | + + + + + + | T AXIS | 24 | degrees | [facility] | | + + + + + + | INTERPRETAT | Sinus | | [facility] | | | ION TEXT | tachycardiaPossible | | | | | | Inferior infarct , age | | | | | | undeterminedAbnormal | | | | | | ECGNo previous ECGs | | | | | | availableConfirmed by | | | | | | GIANNI ALONZO MD ([id number]) | | | | | | on 09/05/2015 9:09:34 AM | | | | + + + + + + + + | Specimen | + + | | + + + + + | Narrative | Performed At | + + + | | | + + + + +---------+ + + | Performing | Address | City/State/Zipcode | Phone Number | | Organization | | | | + +---------+ + + | [facility] | | | | + +---------+ + + documented in this encounter Visit Diagnoses + + | Diagnosis | + + | Preop testing - Primary Preoperative examination, unspecified | + + | Essential hypertension, hypertension with unspecified goal | + + | Primary osteoarthritis of right knee Primary localized osteoarthrosis, lower leg | + + | Hepatitis C virus infection without hepatic coma, unspecified chronicity | + + documented in this encounter
--- OUTSIDE RECORDS SUMMARY | ~2019-09-25 | XMS | Encounter Summary ---
Demographics + + + | Address | [address] | | | [place] [address] | + + + | Home Phone | | + + + | Preferred Language | Unknown | + + + | Marital Status | | + + + | Latter-Day Affiliation | 1027 | + + + | Race | Unknown | + + + | Ethnic Group | Unknown | + + + Author + + + | Author | [facility] | | | and [place] | + + + | Organization | [facility] | | | and [...] [place] | | | | | [address] | | + + + + + Care Team Providers + +------+ + | Care Care Director Name | Role | Phone | + +------+ + PCP | Unavailable | + +------+ + Encounter Details +--------+ + + + + | Date | Type | Department | Care Team | Description | +--------+ + + + + | 12/31/ | Hospital | [facility] | Kenia Cary, | | | 1996 | Encounter | [facility] | MD [address] | | | | | CONV DEPT [address] | [place], [place] | | | | | [place], | [address] | | | | | [place] [address] | | | | | | [phone] | | | +--------+ + + + [...]
--- OUTSIDE RECORDS SUMMARY | ~2019-09-25 | XMS | Encounter Summary ---
Demographics + + + | Address | [address] | | | [place] [address] | + + + | Home Phone | | + + + | Preferred Language | Unknown | + + + | Marital Status | | + + + | Adventist Affiliation | 1027 | + + + | Race | Unknown | + + + | Ethnic Group | Unknown | + + + Author + + + | Author | [facility] | | | and [place] | + + + | Organization | [facility] | | | [...] [place] | | | | | [address] | | + + + + + Care Team Providers + +------+ + | Care Movie Editor Name | Role | Phone | + +------+ + | Jhonny Jimenez MD | PCP | | + +------+ + Encounter Details +--------+ + + + + | Date | Type | Department | Care Team | Description | +--------+ + + + + | 09/03/ | Hospital | [facility] | Agus Steward, | Preop testing; | | 2016 | Encounter | [facility] | MD [address] | Essential | | | | [address] [place] | [place], [place] | hypertension, | | | | [place], [place] | [address] | hypertension with | | | | [address] | | unspecified goal; | | | | [phone] | | Primary | | | | | | osteoarthritis of | | | | | | right knee; | | | | | | Hepatitis C virus | | | | | | infection without | | | | | | hepatic coma, | | | | | | unspecified | | | | | | chronicity | +--------+ + + [...] + + | tadalafil (CIALIS) | Take 20 [...] | + +--------+ + + + | PTT | Routin | 09/04/2015 | Preop testing | Results for this | | | e | 2:30 PM | Essential | procedure are in the | | | | PDT | hypertension, | results section. | | | | | hypertension with | | | | | | unspecified goal | | | | | | Primary | | | | | | osteoarthritis of | | | | | | right knee | | | | | | Hepatitis C virus | | | | | | infection without | | | | | | hepatic coma, | | | | | | unspecified | | | | | | chronicity | | + +--------+ + + + | PROTIME INR | Routin | 09/04/2015 | Preop testing | Results for this | | | e | 2:30 PM | Essential | procedure are in the | | | | PDT | hypertension, | results section. | | | | | hypertension with | | | | | | unspecified goal | | | | | | Primary | | | | | | osteoarthritis of | | | | | | right knee | | | | | | Hepatitis C virus | | | | | | infection without | | | | | | hepatic coma, | | | | | | unspecified | | | | | | chronicity | | + +--------+ + + + | PLATELET COUNT | Routin | 09/04/2015 | Preop testing | Results for this | | | e | 2:30 PM | Essential | procedure are in the | | | | PDT | hypertension, | results section. | | | | | hypertension with | | | | | | unspecified goal | | | | | | Primary | | | | | | osteoarthritis of | | | | | | right knee | | | | | | Hepatitis C virus | | | | | | infection without | | | | | | hepatic coma, | | | | | | unspecified | | | | | | chronicity | | + +--------+ + + + | HEMOGLOBIN | Routin | 09/04/2015 | Preop testing | Results for this | | | e | 2:30 PM | Essential | procedure are in the | | | | PDT | hypertension, | results section. | | | | | hypertension with | | | | | | unspecified goal | | | | | | Primary | | | | | | osteoarthritis of | | | | | | right knee | | | | | | Hepatitis C virus | | | | | | infection without | | | | | | hepatic coma, | | | | | | unspecified | | | | | | chronicity | | + +--------+ + + + | HEPATIC FUNCTION | Routin | 09/04/2015 | Preop testing | Results for this | | PANEL | e | 2:30 PM | Essential | procedure are in the | | | | PDT | hypertension, | results section. | | | | | hypertension with | | | | | | unspecified goal | | | | | | Primary | | | | | | osteoarthritis of | | | | | | right knee | | | | | | Hepatitis C virus | | | | | | infection without | | | | | | hepatic coma, | | | | | | unspecified | | | | | | chronicity | | + +--------+ + + + | BASIC METABOLIC | Routin | 09/04/2015 | Preop testing | Results for this | | PANEL | e | 2:30 PM | Essential | procedure are in the | | | | PDT | hypertension, | results section. | | | | | hypertension with | | | | | | unspecified goal | | | | | | Primary | | | | | | osteoarthritis of | | | | | | right knee | | | | | | Hepatitis C virus | | | | | | infection without | | | | | | hepatic coma, | | | | | | unspecified | | | | | | chronicity | | + +--------+ + + + documented in this encounter Results PTT (09/04/2015 2:30 PM PDT) + +-------+ + + + | Component | Value | Ref Range | Performed | Pathologist | | | | | At | Signature | + +-------+ + + + | aPTT | 25 | 22 - 36 seconds | [facility] | | | | | | [facility] [...] [address] | [place] | [phone] | | [facility] | | [address] | | | - LABORATORY | | [...] ST. | [address] | [place], [place] | [phone] | | [facility] | | [address] | | | - LABORATORY | | [...] ST. | [address] | [place], [place] | [phone] | | [facility] | | [address] | | | - LABORATORY | | [...] + | [facility] | [address] | [place] | [phone] | | [facility] | | [address] | | | - LABORATORY | | [...] | | | FILTRATION | mL/min/1.73m2 | [facility] | | | [place] | RATE,ESTIMATED | | MEDICAL | | | | mL/min/1.02p6Rkgw than | | CENTER - | | [...] | 9.4 | 8.3 - 10.5 | [facility] | | | | | mg/dL | [facility] | | | | | | MEDICAL | | | | | | CENTER - | | | | | | LABORATORY | | + + + + + + | BUN/Creatin | 18.7 | | [facility] | | | ine Ratio | | | [facility] | | | | | | [...] ST. | [address] | [place] | [phone] | | [facility] | | [address] | | | - LABORATORY | | [...] + | [facility] | [address] | [place] | [phone] | | [facility] | | [address] | | | - LABORATORY | | | | + + + + + documented in this encounter Visit Diagnoses + + | Diagnosis | + + | Preop testing Preoperative examination, unspecified | + + | Essential hypertension, hypertension with unspecified goal | + + | Primary osteoarthritis of right knee Primary localized osteoarthrosis, lower leg | + + | Hepatitis C virus infection without hepatic coma, unspecified chronicity | + + documented in this encounter"
--- OUTSIDE RECORDS SUMMARY | ~2019-09-25 | XMS | Encounter Summary ---
Demographics + + + | Address | [address] | | | [place] [address] | + + + | Home Phone | | + + + | Preferred Language | Unknown | + + + | Marital Status | | + + + | Protestant Affiliation | 1027 | + + + | Race | Unknown | + + + | Ethnic Group | Unknown | + + + Author + + + | Author | [facility] | | | and [place] | + + + | Organization | [facility] | | | and [...] [place] | | | | | [address] | | + + + + + Care Team Providers + +------+ + | Care Machine Worker Name | Role | Phone | + +------+ + | Jhonny Jimenez MD | PCP | | + +------+ + Reason for Visit +--------+ + | Reason | Comments | +--------+ + | Cough | rm 2/ cold symptoms, fever x 1 wk | +--------+ + Encounter Details +--------+---------+ + + + | Date | Type | Department | Care Team | Description | +--------+---------+ + + + | 05/16/ | Office | [facility] | Ez Hernanedz | Acute bronchitis | | 2019 | Visit | [facility] [address] | MD Marlene [address] | with bronchospasm | | | | [place] | [place] | (Primary Dx); Acute | | | | [address] | [id number] | non-recurrent | | | | [phone] | | frontal sinusitis | +--------+---------+ + + + Social History [...] + + + | Blood Pressure | 96/65 | 05/16/2018 12:27 PM | | | | | PST | | + + + + + | Pulse | 110 | 05/16/2018 12:27 PM | | | | | PST | | + + + + + | Temperature | 39.1 C (102.3 F) | 05/16/2018 12:27 PM | | | | | PST | | + + + + + | Respiratory Rate | 20 | 05/16/2018 12:27 PM | | | | | PST | | + + + + + | Oxygen Saturation | 93% | 05/16/2018 12:27 PM | | | | | PST | | + + + + + | Inhaled Oxygen | - | - | | | Concentration | | | | + + + + + | Weight | 113 kg (249 lb 1.9 | 05/16/2018 12:27 PM | | | | oz) | PST | | + + + + + | Height | 182.9 cm (6') | 05/16/2018 12:27 PM | | | | | PST | | + + + + + | Body Mass Index | 33.79 | 05/16/2018 12:27 PM | | | | | PST | | + + + + + documented in this encounter Patient Instructions Patient Instructions Ez Hernandez MD - 05/16/2018 12:30 PM PSTTake doxycycline as prescribed until gone. Use albuterol inhaler 1-2 puffs up to 4 times daily as needed for cough and wheezing. Use Tessalon Perles cough suppressant as needed for coughing episodes. Take Tylenol, Advil or Aleve with food as needed for fever or pain. Drink plenty of fluids and get a lot of rest. Use bedside cool mist vaporizer. Use saline nasal rinses/lavage 3-4 times daily. Mix 1 level teaspoon of table salt with 2 c ups of lukewarm water for nasal irrigation. Sniff saline from palm or use bulb syringe or Ne ti pot to rinse nasal passages. Use Mucinex as needed to thin mucous/secretions. Use oxymetazoline (Afrin or Dristan Long-acting) nasal spray, 1 spray in each nostril at be dtime only for no more than 5 days. Return here or to your primary care clinic if symptoms persist, change or worsen over the n ext week or if you develop progressive shortness of breath, chest pain, wheezing, nausea and vomiting. Viral or Bacterial Bronchitis with Wheezing(Adult) Bronchitis is an infection of the air passages. It often occurs during a cold and is usuall y caused by a virus. Symptoms include cough with mucus (phlegm) and low-grade fever. This il lness is contagious during the first few days and is spread through the air by coughing and sneezing, or by direct contact (touching the sick person and then touching your own eyes, no se, or mouth). If there is a lot of inflammation, air flow is restricted. The air passages may also go int o spasm, especially if you have asthma. This causes wheezing and difficulty breathing even i n people who do not have asthma. Bronchitis usually lasts 7 to 14 days. The wheezing should improve with treatment during th e first week. An inhaler is often prescribed to relax the air passages and stop wheezing. An tibiotics will be prescribed if your doctor thinks there is also a secondary bacterial infec tion. Home care If symptoms are severe, rest at home for the first 2 to 3 days. When you go back to your usual activities, don't let yourself get too tired. Do not smoke. Also avoid being exposed to secondhand smoke. You may use lfqz-set-kdvdtpm medicine to control fever or pain, unless another medicine was prescribed. Note: If you have chronic liver or kidney disease or have ever had a stomach ulcer or gastrointestinal bleeding, talk with your healthcare provider before using these m edicines. Also talk to your provider if you are taking medicine to prevent blood clots.) Asp irin should never be given to anyone younger than 18 years of age who is ill with a viral in fection or fever. It may cause severe liver or brain damage. Your appetite may be poor, so a light diet is fine. Avoid dehydration by drinking 6 to 8 glasses of fluids per day (such as water, soft drinks, sports drinks, juices, tea, or soup) . Extra fluids will help loosen secretions in the nose and lungs. Tpig-ong-aygbuvx cough, cold, and sore-throat medicines will not shorten the length of t he illness, but they may be helpful to reduce symptoms. (Note: Do not use decongestants if y ou have high blood pressure.) If you were given an inhaler, use it exactly as directed. If you need to use it more oft en than prescribed, your condition may be worsening. If this happens, [facility]. If prescribed, finish all antibiotic medicine, even if you are feeling better after only a few days. Follow-up care Follow up with your healthcare provider, or as advised. If you had an X-ray or ECG (electro cardiogram), a specialist will review it. You will be notified of any new findings that may affect your care. If you are age 65 or older, or if you have a chronic lung disease or condition that affects your immune system, or you smoke, ask your healthcare provider about getting a pneumococcal vaccine and a yearly flu shot (influenza vaccine). When to seek medical advice Call your healthcare provider right away if any of these occur: Fever of 100.4F (38C) or higher, or as directed by your healthcare provider Coughing up increasing amounts of colored sputum Weakness, drowsiness, headache, facial pain, ear pain, or a stiff neck Call 911 Call 911 if any of these occur. Coughing up blood Worsening weakness, drowsiness, headache, or stiff neck Increased wheezing not helped with medication, shortness of breath, or pain with breathi ng Date Last Reviewed: 01/25/201519995176-6934 [employer]. [address] [place] [id number]. All righ ts reserved. This information is not intended as a substitute for professional medical care. Always follow your healthcare professional's instructions. Sinusitis (Antibiotic Treatment) The sinuses are air-filled spaces within the bones of the face. They connect to the inside of the nose.Sinusitisis an inflammation of the tissue that lines the sinuses. Sinusitis can occur during a cold. It can also happen due to allergies to pollens and other particles in the air. Sinusitis can cause symptoms of sinus congestion and a feeling of fullness. A si nus infection causes fever, headache, and facial pain. There is often green or yellow fluid draining from the nose or into the back of the throat (post-nasal drip). You have been given antibiotics to treat this condition. Home care Take the full course of antibiotics as instructed. Do not stop taking them, even when yo u feel better. Drink plenty of water, hot tea, and other liquids. This may help thin nasal mucus. It al so may help your sinuses drain fluids. Heat may help soothe painful areas of your face. Use a towel soaked in hot water. Or, st and in the shower and direct the warm spray onto your face. Using a vaporizer along with a m enthol rub at night may also help soothe symptoms. Anexpectorantwith guaifenesin may help thin nasal mucus and help your sinuses drain fluids. You can use an uxha-mbz-yovttpwsvopnzlktocn,unless a similar medicine was prescribed to you. Nasal sprays work the fastest. Use one that contains phenylephrine or oxymetazoline . First blow your nose gently. Then use the spray. Do not use these medicines more often ken n directed on the label. If you do, your symptoms may get worse. You may also take pills ken t contain pseudoephedrine. Don t use products that combine multiple medicines. This is bec ause side effects may be increased. Read labels. You can also ask the pharmacist for help. ( People with high blood pressure should not use decongestants. They can raise blood pressure. ) Cezb-uwz-hwrgumtjufyovtkksiszzvuq help if allergies contributed to your sinusitis. Do not use nasal rinses or irrigation during an acute sinus infection, unless your healt hcare provider tells you to. Rinsing may spread the infection to other areas in your sinuses . Use acetaminophen or ibuprofen to control pain, unless another pain medicine was prescri bed to you. If you have chronic liver or kidney disease or ever had a stomach ulcer, talk wi th your healthcare provider before using these medicines. (Aspirin should never be taken by anyone under age 18 who is ill with a fever. It may cause severe liver damage.) Don't smoke. This can make symptoms worse. Follow-up care Follow up with your healthcare provider or our staff if you are better in 1 week. When to seek medical advice Call your healthcare provider if any of these occur: Facial pain or headache that gets worse Stiff neck Unusual drowsiness or confusion Swelling of your forehead or eyelids Vision problems, such as blurred or double vision Fever of100.4F (38C)or higher, or as directed by your healthcare provider Seizure Breathing problems Symptoms don't go away in 10 days Prevention Here are steps you can take to help prevent an infection: Keep good hand washing habits. Don t have close contact with people who have sore throats, colds, or other upper resp iratory infections. Don t smoke, and stay away from secondhand smoke. Stay up to date with of your vaccines. Date Last Reviewed: 03/15/201719994612-9600 [employer]. [address] [place] [address]. All righ ts reserved. This information is not intended as a substitute for professional medical care. Always follow your healthcare professional's instructions. documented in this encounter Progress Notes Ez Hernandez MD - 05/16/2018 12:30 PM PSTFormatting of this note might be differen t from the original. Chief Complaint: Cough (rm 2/ cold symptoms, fever x 1 wk) Lebron is a 57 y.o. male who comes in complaining of cold symptoms, cough and fever for 1 wee k. Describes clear nasal congestion, some post-nasal drainage, right frontal sinus pain/pres sure, no ear ache, no eye irritation, no sore throat and productive cough with brown sputum for 5 days. Has measured fever, sweats and chills. Has body aches. No nausea or vomiting. No diarrhea. No dizziness or lightheadedness. Has shortness of breath, wheezing and anterior costal margin pleuritic chest burning/pain. Non smoker and no hx of asthma or COPD. Never h ospitalized for the same. Has been taking Dominique seltzer and Tylenol without improvement in sy mptoms. Had exposure to grandkids with same. Patient's medications, allergies, past medical, surgical, social and family histories were reviewed and updated as appropriate. Objective: BP 96/65 | Pulse 110 | Temp (!) 39.1 C (102.3 F) (Temporal) | Resp 20 | Ht 1.829 m (6') | Wt 113 kg (249 lb 1.9 oz) | SpO2 93% | BMI 33.79 kg/m General Appearance: Alert, cooperative, mildly obese, large framed, middle-aged male in no distress, appears stated age. Non toxic appearance. Breathing comfortably and speaking in full sentences. Head: Normocephalic, right maxillary and frontal sinus tenderness. No mastoid tenderness. Eyes: PERRL, conjunctiva clear without exudates. Ears: Unremarkable TM's with clear external ear canals and gross normal hearing. Nose: Moderately congested with yellow exudates. Throat: Erythematous, mildly edematous with yellow, posterior pharyngeal exudates draining from the nasopharynx. Moist MM. Neck: Supple, symmetrical, no anterior cervical adenopathy. Lungs: Added rhonchi and end expiratory wheezes to auscultation bilaterally without crackl es or rales, good air movement, respirations unlabored. Cardiac: Quiet precordium, regular rhythm, no murmur or dieter. No ankle edema. Abdomen: Flat with normally active bowel sounds, soft, non tender. No organomegaly. Skin: Skin color, texture, turgor normal, no rash. Two-view chest x-ray, today: My independent review the two-view chest x-ray failed to reveal an acute intrathoracic proc ess. Results for orders placed or performed in visit on 05/16/18 Influenza A and B RNA, NAAT Result Value Ref Range Influenza A PCR Negative Negative Influenza B PCR Negative Negative Assessment and Plans: 1. Acute bronchitis with bronchospasm Influenza A and B RNA, NAAT XR Chest PA and Lateral doxycycline (VIBRAMYCIN) 100 mg capsule albuterol 90 mcg/puff inhaler benzonatate (TESSALON PERLES) 100 mg capsule 2. Acute non-recurrent frontal sinusitis doxycycline (VIBRAMYCIN) 100 mg capsule 10 day history of viral URI with cough presents with acute right frontal and maxillary sinu sitis, associated bronchitis with mild bronchospasm. He was given the following instruction s, prescriptions and a note for work. Systemic corticosteroid is not currently justified. Plan: Take doxycycline as prescribed until gone. Use albuterol inhaler 1-2 puffs up to 4 times daily as needed for cough and wheezing. Use Tessalon Perles cough suppressant as needed for coughing episodes. Take Tylenol, Advil or Aleve with food as needed for fever or pain. Drink plenty of fluids and get a lot of rest. Use bedside cool mist vaporizer. Use saline nasal rinses/lavage 3-4 times daily. Mix 1 level teaspoon of table salt with 2 c ups of lukewarm water for nasal irrigation. Sniff saline from palm or use bulb syringe or Ne ti pot to rinse nasal passages. Use Mucinex as needed to thin mucous/secretions. Use oxymetazoline (Afrin or Dristan Long-acting) nasal spray, 1 spray in each nostril at be dtime only for no more than 5 days. Return here or to your primary care clinic if symptoms persist, change or worsen over the n ext week or if you develop progressive shortness of breath, chest pain, wheezing, nausea and vomiting. Ez MahajanD documented in this encounter Plan of Treatment [...] | + +--------+ + + + | INFLUENZA A AND B | STAT | 05/16/2018 | Acute bronchitis | Results for this | | RNA, NAAT | | 12:33 PM | with bronchospasm | procedure are [...] + | Gabe, Rad Results In - 05/16/2018 2:46 PM PST [...] | | | + +---------+ + + Influenza A and B RNA, NAAT (05/16/2018 12:33 PM PST) + + + + + + | Component | Value | Ref Range | Performed | Pathologist | | | | | At | Signature | + + + + + + | Influenza A | Negative | Negative | [facility] | | | [facility] | | | [facility] | | + + + + + + | Influenza B | Negative | Negative | [facility] | | | [facility] | | | [facility] | | [facility] | | + + + + + + + + | Specimen | + + | Tissue - Entire | | nasopharynx (body | | structure) | + + + + + + + | Performing | Address | City/State/Zipcode | Phone Number | | Organization | | | | + + + + + | [facility] | [address] | [place] | [phone] | | [facility] | | [address] | | | [facility] | | | | + + + + + documented in this encounter Visit Diagnoses + + | Diagnosis | + + | Acute bronchitis with bronchospasm - Primary Acute bronchitis | + + | Acute non-recurrent frontal sinusitis | + + documented in this encounter"
--- OUTSIDE RECORDS SUMMARY | ~2019-09-25 | XMS | Encounter Summary ---
Demographics + + + | Address | [address] | | | [place] [address] | + + + | Home Phone [...] + + | Author | [facility] | | | and [place] | + + + | Organization | [facility] | | [...] [place] | | | | | [address] | | + + + + + Care Team Providers + +------+ + | Care Rail Grinder Name | Role | Phone | + [...] + + | 11/29/ | Telephone | [facility] | Agus Steward, | Medication Refill | | 2015 | | ORTHOPEDIC SURGERY | [address] | | | | | [address] | [place], [place] | | | | | [place], [place] | [address] | | | | | [address] | | | | | | [phone] | | | +--------+ + + + [...]
--- OUTSIDE RECORDS SUMMARY | ~2019-09-25 | XMS | Encounter Summary ---
Demographics + + + | Address | [address] | | | [place] [address] | + + + | Home Phone | | + + + | Preferred Language | Unknown | + + + | Marital Status | | + + + | Confucianism Affiliation | 1027 | + + + | Race | Unknown | + + + | Ethnic Group | Unknown | + + + Author + + + | Author | [facility] | | | and [place] | + + + | Organization | [facility] | | | and [...] [place] | | | | | [place] | | | | | [address] | | + + + + + Care Team Providers + +------+ + | Care Computer Network Engineer Name | Role | Phone | + +------+ + PCP | Unavailable | + +------+ + Encounter Details +--------+ + + + + | Date | Type | Department | Care Team | Description | +--------+ + + + + | 06/24/ | Hospital | [facility] | | | | 1999 - | Encounter | [facility] | | | | | | [address] | | | | 08/04/ | | [place] [address] | | | | 1999 | | [phone] | | | +--------+ + + + [...]
--- OUTSIDE RECORDS SUMMARY | ~2019-09-25 | XMS | Encounter Summary ---
Demographics + + + | Address | [address] | | | [place] [address] | + + + | Home Phone [...] [place] | | | | | [address] | | + + + + + Care Team Providers + +------+ + | Care Ironer Or Presser Name | Role | Phone | + [...] | | hepatitis C | Gregoria, | SCOW CAPTAIN [address] | | | | | without | SCOW CAPTAIN [address] | [place], [place] | | | | | hepatic coma | [place] | [address] [place] | | | | | (HCC) | [address] [place] | [place], [place] | | | | | | [place], [place] | [address] Phone: | | | | | | [address] | [phone] | | | | | | Phone: | Fax: | | | | | | [phone] | [phone] | | | | | | Fax: | | | | | | | [phone] | | +--------+ + + + + [...] | | viral | [address] | [address] | | | | | hepatitis C | [address] | [place], [place] | | | | | without | [place], | [address] [place] | | | | | hepatic coma | [place] [address] | [place], [place] | | | | | Old | Phone: | [address] Phone: | | | | | disruption | [phone] | [phone] | | | | | of anterior | Fax: | Fax: | | | | | cruciate | [phone] | [phone] | | | | | ligament | [...] + + | 09/09/ | Office | [facility] | [facility], | Chronic hepatitis C | | 2015 | Visit | GASTROENTEROLOGY | LADY Kinney [address] | without hepatic coma | | | | [address] [place] | [place], [place] [address] | (HCC) (Primary Dx); | | | | [address] [place], [place] | [place] | Essential | | | | [phone] | [address] | hypertension | | | | [phone] | | | +--------+---------+ + + + [...] Log 05/24/2012 6.3 Final HCV Quantitative 05/24/2012 [id number] Final HCV Quantitative Log 05/29/2011 5.7 Final HCV Quantitative 05/29/2011 [id number] Final HCV Quantitative Log 12/20/2009 6.5 Final HCV Quantitative 12/20/2009 [id number] Final Assessment: 1. Chronic hepatitis C without hepatic coma (HCC) Hepatitis C, Fibrosure Panel Alpha Fetoprotein, Tumor Marker Qyisa-4-Dqhmdgpxoif, Total SANCHO QUAL, SCREEN CBC with Differential [...] infection control guidelines. Inform tattoo parl[facility] and [facility] providers of HCV infection. Avoid [...] medical renal disease. Dictated and Signed by: Cior Theodore MD | | | Electronically signed: [...] [address] | [place] | [phone] | | [facility] | | [address] | | | - IMAGING | | [...] | | | | | | determinedby [facility] | | | | | | [...] | | | | [address] [place] | | | | | | [address] | | | | + + + [...] [address] | [place] [address] | [phone] | + + + + + Hepatitis [...] + + + | HCV Viral | [id number] (A)Comment: | NOTDET IU/mL | REFERENCE | [...] W. | | | | | | [address], [place] | | | | | | [address] | | | | + + + [...] [address] | [place] [address] | [phone] | + + + + + Smooth [...] | | | | | [place] [address] | | | | + + + [...] [address] | [place] [address] | [phone] | + + + + + Protime [...] + | [address] [facility] | [address] [place] [address] | [place], [place] | [phone] | | [facility] | | [address] | | | - LABORATORY | | [...] | | | | | [place] [address] | | | | + + + [...] [address] | [place] [address] | [phone] | + + + + + Iron [...] ST. | [address] | [place] | [phone] | | [facility] | | [address] | | | - LABORATORY | | [...] | | | | | [place] [address] | | | | + + + [...] [address] | [place] [address] | [phone] | + + + + + Hepatitis [...] | [facility] | | | | [id number] or greater | | | | | [...] [place] | | | | | | [address] | | | | + + + + + + + + | Specimen | + + | Blood specimen | | (specimen) | + + + + + + + | Performing | Address | City/State/Zipcode | Phone Number | | Organization | | | | + + + + + | [facility] | [address] | [place] [address] | [phone] | + + + + + Hepatitis [...] | | | | | [place] [address] | | | | + + + [...] [address] | [place] [address] | [phone] | + + + + + Hepatitis [...] | | | | | [place] [address] | | | | + + + + + + | Hepatitis A | Non ReactiveComment: | NR | REFERENCE | | | Ab IgM | Testing Performed: [facility], | | [facility] | | | | [address] | | | | | | [place] [address] | | | | + + + [...] [place] | | | | | | [address] | | | | + + + + + + + + | Specimen | + + | Blood specimen | | (specimen) | + + + + + + + | Performing | Address | City/State/Zipcode | Phone Number | | Organization | | | | + + + + + | [facility] | [address] | [place] [address] | [phone] | + + + + + Ferritin [...] [address] | [place] | [phone] | | [facility] | | [address] | | | - LABORATORY | | [...] | mL/min/1.73m2 | [facility] | | | [place]MANI | RATE,ESTIMATED | | MEDICAL | | | | mL/min/1.89y1Jpsf than | | CENTER - | | [...] + | [address] | [address] | [place] | [phone] | | [facility] | | [address] | | | - LABORATORY | | [...] [place] | | | | | | [address] | | | | + + + + + + + + | Specimen | + + | Blood specimen | | (specimen) | + + + + + + + | Performing | Address | City/State/Zipcode | Phone Number | | Organization | | | | + + + + + | [facility] | [address] | [place] [address] | [phone] | + + + + + CBC [...] [address] | [place] | [phone] | | [facility] | | [address] | | | - LABORATORY | | [...] [address] | [place] [address] | [phone] | + + + + + Htaha-0-Chkzykzsbui, Total (09/14/2014 11:07 AM PDT) + + [...] [place] | | | | | | [address] | | | | + + + [...] [address] | [place] [address] | [phone] | + + + + + Alpha [...] | | | | | | Performed: [place] | | | | | | [facility] | | | | | | [place], [address], | | | | | | [place] [address] | | | | + + + [...] [address] | [place] [address] | [phone] | + + + + + Hepatitis [...] [facility] | | | | | | [address] | | | | | | [place], [place] | | | | | | [address] | | | | + + + + + + + + | Specimen | + + | Blood specimen | | (specimen) | + + + + + + + | Performing | Address | City/State/Zipcode | Phone Number | | Organization | | | | + + + + + | [facility] | [address] | [place] [address] | [phone] | + + + + + documented in this encounter Visit Diagnoses + + | Diagnosis | + + | Chronic hepatitis C without hepatic coma (HCC) - Primary | + + | Essential hypertension Unspecified essential hypertension | + + documented in this encounter"
--- OUTSIDE RECORDS SUMMARY | ~2019-09-25 | XMS | Encounter Summary ---
Demographics + + + | Address | [address] | | | [place] [address] | + + + | Home Phone [...] [place] | | | | | [address] | | + + + + + Care Team Providers + +------+ + | Care Community Health Advocate Name | Role | Phone | + +------+ + PCP | Unavailable | + +------+ + Encounter Details +--------+ + + + + | Date | Type | Department | Care Team | Description | +--------+ + + + + | 09/27/ | Hospital | [facility] | | | | 2002 | Encounter | [facility] | | | | | | [address] | | | | | | [place] | | | | | | [address] | | | | | | [phone] | | | +--------+ + + + [...]
--- OUTSIDE RECORDS SUMMARY | ~2019-09-25 | XMS | Clinical Summary ---
Demographics + + + | Address | [address] | | | [place] [address] | + + + | Home Phone | | + + + | Preferred Language | Unknown | + + + | Marital Status | | + + + | Congregational Affiliation | 1027 | + + + | Race | Unknown | + + + | Ethnic Group | Unknown | + + + Author + + + | Author | [facility] | | | and [place] | + + + | Organization | [facility] | | | and [...] [place] | | | | | [address] | | + + + + + Care Team Providers + +------+ + | Care Slope Runner Name | Role | Phone | + +------+ + | Jhonny Jimenez MD | PCP | | + +------+ + Allergies No Known Allergies Medications + + + +---------+------+------+-------+ | Medication | Sig | Dispensed | Refills | Star | End | Statu | | | | | | t | Date | s | | | | | | Date | | | + + + +---------+------+------+-------+ | lisinopril | Take 40 mg by mouth | | 0 | | | Activ | | (PRINIVIL,ZESTRIL) | Daily. | | | | | e | | 40 MG tablet | | | | | | | + + + +---------+------+------+-------+ | nicotine | 2 mg. | | 0 | | | Activ | | (NICORETTE) 2 mg gum | | | | | | e | + + + +---------+------+------+-------+ | tadalafil (CIALIS) | Take 1 tablet one | | 0 | 05/0 | | Activ | | 20 MG tablet | hour before sex. | | | 4/20 | | e | | | | | | 17 | | | + + + +---------+------+------+-------+ | CAFFEINE PO | Take by mouth. | | 0 | | | Activ | | | | | | | | e | + + + +---------+------+------+-------+ | albuterol 90 | Inhale 2 puffs into | 1 | 0 | 01/0 | | Activ | | mcg/puff | the lungs every 6 | Inhaler | | 2/20 | | e | | inhalerIndications: | hours as needed for | | | 19 | | | | Acute bronchitis | Wheezing. | | | | | | | with bronchospasm | | | | | | | + + + +---------+------+------+-------+ | benzonatate | Take 1 capsule by | 30 | 0 | 01/0 | | Activ | | (GARY GAONA) | mouth 3 times daily | capsule | | 2/20 | | e | | 100 mg | as needed for Cough. | | | 19 | | | | capsuleIndications: | | | | | | | | Acute bronchitis | | | | | | | | with bronchospasm | | | | | | | + + + +---------+------+------+-------+ Active Problems + + + | Problem | Noted Date | + + + | Primary osteoarthritis of right knee | 2015 | + + + | Colon cancer screening | 10/02/2014 | + + + | Chronic hepatitis C without hepatic coma | 09/09/2014 | + + + | Essential hypertension | 09/09/2014 | + + + Encounters +--------+ + + + + | Date | Type | Specialty | Care Team | Description | +--------+ + + + + | 07/22/ Emergency | Emergency Medicine | Boom Ceja, | Medical clearance | | 2019 | | | Nabor Loyola MD | for psychiatric | | | | | | admission/treatment | | | | | | (Primary Dx); | | | | | | Methamphetamine | | | | | | abuse (HCC); Alcohol | | | | | | abuse | +--------+ + + + + from Last 3 Months Immunizations + + + + | Name | Administration Dates | Next Due | + + + + | TDAP, UNSPECIFIED | 09/05/2009 | | | FORMULATION | | | + + + + Family History + + +------+ + | Medical History | Relation | Name | Comments | + + +------+ + | COPD | Father | | | + + +------+ + | Diabetes | Father | | | + + +------+ + | Heart attack | Father | | | + + +------+ + | Hepatitis C | Father | | | + + +------+ + | High blood pressure | Father | | | + + +------+ + | Alcohol abuse | Other | | | + + +------+ + + +------+ + + | Relation | Name | Status | Comments | + +------+ + + | Brother | | Alive | | + +------+ + + | Brother | | Alive | | + +------+ + + | Brother | | Alive | | + +------+ + + | Brother | | Alive | | + +------+ + + | Father | | | COPD/diabetes | | | | (Age | | | | | 72) | | + +------+ + + | Mother | | Alive | | + +------+ + + | Other | | | | + +------+ + + | Sister | | Alive | | + +------+ + + | Sister | | Alive | | + +------+ + + Social History + +-------+ +--------+------+ [...] recent travel history available. | + + Last Filed Vital Signs + + + [...] | | + + + + + Plan of Treatment + + + + + | Health Maintenance | Due Date | Last Done | Comments | + + + + + | Vaccine: Zoster (2 | | 09/16/2014 | | | of 3) | 5 | | | + + + + + | Vaccine: Influenza | | | | | (Season Ended) | 0 | | | + + + + + | Vaccine: | | 09/16/2014, 09/05/2009, | | | Dtap/Tdap/Td (3 - | 5 | 09/05/2009, Additional history | | | Td) | | exists | | + + + + + | Colorectal Cancer | | 10/02/2014, 10/02/2014 | | | Screening | 5 | | | | (Colonoscopy) | | | | + + + + + | Hepatitis C | Completed | 03/16/2018, 03/16/2018, | | | Screening | | 03/05/2018, Additional history | | | | | exists | | + + + + + Implants + +--------+--------+ +--------+--------+--------+ | Implanted | Type | Area | Manufacture | Device | Shelf | Model | | | | | r | | Expira | / | | | | | | Identi | tion | Serial | | | | | | fier | Date | / Lot | + +--------+--------+ +--------+--------+--------+ | Jan Bone Palacos-R 40gm - | Generi | Right: | MALINDA - | | 12/12/ | 00-111 | | [id number]: Qty: 2 on | c | Knee | ZIM | | 2019 | 2-140- | | 2015 by Agus Steward | | | | | | 01 / | | MD Judith at [facility] | | | | | | /[id number] | | [facility] | | | | | | 447 | + +--------+--------+ +--------+--------+--------+ | Imp Knee Surf [facility] R 10 | Generi | Right: | MALINDA - | | 01/12/ | [id number] | | 8-11gh - [id number]: | c | Knee | ZIM | | 2019 | [address] | | Qty: 1 on 2015 by | | | | | | / | | Agus Steward MD at [facility] | | | | | | /[id number] | | [facility] | | | | | | 829 | | [place] | | | | | | | + +--------+--------+ +--------+--------+--------+ | Imp Knee Fem Stem 0d Rt Sz10 | Generi | Right: | MALINDA - | | 07/12/ | 42-502 | | - [id number]: Qty: 1 | c | Knee | ZIMM | | 2025 | 6-068- | | on 2015 by Bin, | | | | | | 02 / | | Agus Wong MD at [facility] | | | | | | /[id number] | | [facility] | | | | | | 859 | + +--------+--------+ +--------+--------+--------+ | Imp Knee Tib 5deg Rt Szg - | Generi | Right: | MALINDA - | | 08/12/ | 42-532 | | [id number]: Qty: 1 on | c | Knee | ZIMM | | 2025 | 0-079- | | 2015 by Agus Steward | | | | | | 02 / | | MD Judith at [facility] | | | | | | /[id number] | | [facility] | | | | | | 791 | + +--------+--------+ +--------+--------+--------+ | Imp Knee Ptela Polyeth 38mm - | Generi | Right: | MALINDA - | | / | 42-540 | | [id number]: Qty: 1 | c | Knee | ZIMM | | 2024 | 0-000- | | on 2015 by Bin, | | | | | | 38 / | | Agus Wong MD at [facility] | | | | | | /[address] | | [facility] | | | | | | 585 | + +--------+--------+ +--------+--------+--------+ Procedures + +--------+ + + + | [...] section. | + +--------+ + + + from Last 3 Months Results Drugs of Abuse, Screen, Urine (07/23/2019 [...] | [address] | [place] | [phone] | | [facility] | | [address] | | | - LABORATORY | | [...] | | Top Tube | | | [facility] | | | [...] ST. | [address] | [place], [place] | [phone] | | [facility] | | [address] | | | - LABORATORY | | [...] (H) | 4.0 - 11.0 K/uL | [facility] [...] | | | | | | [facility] | | | | | | MEDICAL [...] | Preliminary studies have | | [facility] | | | s | indicated the [...] | Basophils | | K/uL | [facility] | | | | | | MEDICAL | | | | | | CENTER - | | | | | | LABORATORY | | + + + + + + | Absolute | 0.06 (H) | 0.00 - 0.03 | [facility] | | | Immature | | K/uL | [facility] | | | Granulocyte | | | MEDICAL | | | s | | | CENTER - | | | | | | LABORATORY | | + + + + + + | % nRBC | 0 | 0 - 2 per 100 | [facility] | | | | | WBCs | [facility] | | | | | | MEDICAL | | | | | | CENTER - | | | | | | LABORATORY | | + + + + + + | Absolute | 0.00 | 0.00 - 0.01 | [facility] | | | nRBC | | K/uL | [facility] | [address] | [place] | [phone] | | [facility] | | [address] | | | - LABORATORY | | | | + + + + + Ethanol (07/23/2019 8:17 PM PDT) + +--------+ + + + | Component | Value | Ref Range | Performed | Pathologist | | | | | At | Signature | + +--------+ + + + | ALCOHOL, | 57 (H) | <10 mg/dL | [facility] | | | SERUM/PLASM | | | [facility] | | | A | | | [...] + | [facility] | [address] | [place] | [phone] | | [facility] | | [address] | | | - LABORATORY | | [...] | | en Level | | | [facility] | | [...] + | [facility] | [address] | [place] | [phone] | | [facility] | | [address] | | | - LABORATORY | | | | + + + + + Salicylate Level (07/23/2019 8:17 PM PDT) + +-------+ + + + | Component | Value | Ref Range | Performed | Pathologist | | | | | At | Signature | + +-------+ + + + | Salicylate | <3.0 | <30.1 mg/dL | [facility] | | | Level | | | [facility] | | | | | | MEDICAL | | | | | | CENTER - | | | | | | LABORATORY | | + +-------+ + + + + + | Specimen | + + | Blood | + + + + + + + | Performing | Address | City/State[facility] | Phone Number | | Organization | | | | + + + + + | [facility] | [address] | [place] | [phone] | | [facility] | | [address] | | | - LABORATORY | | [...] 22 | 9 - 23 mg/dL | [facility] | | | | | | [facility] | | | | | | MEDICAL | | | | | | CENTER - | | | | | | LABORATORY | | + + + + + + | Creatinine | 1.52 (H) | 0.70 - 1.30 | [facility] | | | | | mg/dL | [facility] | | | | | | MEDICAL | | | | | | CENTER - | | | | | | LABORATORY | | + + + + + + | eGFR if not | 48 (L)Comment: | >=60 | [facility] | | | | GLOMERULAR FILTRATION | mL/min/1.73m2 | [facility] | | | PALESTINIAN | RATE,ESTIMATED | | MEDICAL | | | | mL/min/1.32m6Quux than | | CENTER - | | [...] [address] | [place] | [phone] | | [facility] | | [address] | | | - LABORATORY | | | | + + + + + from Last 3 Months Insurance + +--------+ +--------+ +---------+------+ | Payer | Benefi | Subscriber | Effect | Phone | Address | Type | | | t Plan | ID | hanny | | | | | | / | | Dates | | | | | | Group | | | | | | + +--------+ +--------+ +---------+------+ | RAHEEL | EDWIN | [id number] | 12/14/19 | [phone] | | PPO | | | CSOUR | | 17-Pre | 2 | | | | | E | | sent | | | | | | FIRST | | | | | | | | CHOICE | | | | | | + +--------+ +--------+ +---------+------+ + +--------+ +--------+ + + | Guarantor Name | Accoun | Relation to | Date | Phone | Billing Address | | | t Type | Patient | of | | | | | | | | | | + +--------+ +--------+ + + | Lebron Alejandro | Person | Self | [birth year] | [address] | | | al/Fam | | 1961 | [phone] | [place], [place] | | | [place] | | | 4 (Home) | [address] | + +--------+ +--------+ + + Advance Directives + + + + + | Type | Date Recorded | Patient | Explanation | | | | Research Engineer | | + + + + + | Power of | | | | | Filament Tester | | | | + + + + + | Advance | 10/02/2014 1:42 | | | | Directive | PM | | | + + + + + + + + + + | Code Status | Date | Date | Comments | | | Activated | Inactivated | | + + + + + | Full Code | 2015 | 09/11/2015 | | | | 5:45 PM | 3:08 PM | | + + + + +
--- OUTSIDE RECORDS SUMMARY | ~2019-09-25 | XMS | Encounter Summary ---
Demographics + + + | Address | [address] | | | [place] [address] | + + + | Home Phone | | + + + | Preferred Language | Unknown | + + + | Marital Status | | + + + | Voodoo Affiliation | 1027 | + + + | Race | Unknown | + + + | Ethnic Group | Unknown | + + + Author + + + | Author | [facility] | | | and [place] | + + + | Organization | [facility] | | | and [place] | + + + | Address | Unknown | + + + | Phone | Unavailable | + + + Support + + + + + | Name | Relationship | Address | Phone | + + + + + | Katt Alejanrdo | ECON | [address] | | | | | [place] | | | | | [place] | | | | | [address] | | + + + + + Care Team Providers + +------+ + | Care Local Government Legislator Name | Role | Phone | + [...] + + | 09/03/ | Office | [facility] | Agus Steward, | Preop testing | | 2016 | Visit | ORTHOPEDIC SURGERY | MD Martinez [facility] | (Primary Dx); | | | | [address] | [place], [place] | Essential | | | | [place], [place] | [address] | hypertension, | | | | [address] | | hypertension with | | | | [phone] | | unspecified goal; | | | [...] for his knee and it has been zosv-lu-nvel osteoarthritic for shanta ral years He has [...] [address] | [place] | [phone] | | [facility] | | [address] | | | - LABORATORY | | [...] + | [facility] | [address] | [place] | [phone] | | [facility] | | [address] | | | - LABORATORY | | [...] + | [facility] | [address] | [place] | [phone] | | [facility] | | [address] | | | - LABORATORY | | [...] + | [facility] | [address] | [place] | [phone] | | [facility] | | [address] | | | - LABORATORY | | [...] mL/min/1.73m2 | [facility] | | | DJIBOUTIAN | RATE,ESTIMATED | | MEDICAL | | | | mL/min/1.03o6Pmxz than | | CENTER - | | [...] [address] | [place] | [phone] | | [facility] | | [address] | | | - LABORATORY | | [...] + | [facility] | [address] | [place] | [phone] | | [facility] | | [address] | | | - LABORATORY | | [...] - 1.030 | [facility] | | | [place], | | | [facility] | | [...] + | [facility] | [address] | [place] | [phone] | | [facility] | | [address] | | | - LABORATORY | | [...] [address] | [place] | [phone] | | [facility] | | [address] | | | - LABORATORY | | [...] | | | | GIANNI ALONZO MD ([id number]) | | | | | | on [...]
--- OUTSIDE RECORDS SUMMARY | ~2019-09-25 | XMS | Encounter Summary ---
Demographics + + + | Address | [address] | | | [place] [address] | + + + | Home Phone | | + + + | Preferred Language | Unknown | + + + | Marital Status | | + + + | Rastafarian Affiliation | 1027 | + + + | Race | Unknown | + + + | Ethnic Group | Unknown | + + + Author + + + | Author | [facility] | | | and [place] | + + + | Organization | [facility] | | | [...] [place] | | | | | [address] | | + + + + + Care Team Providers + +------+ + | Care Gifts Officer Name | Role | Phone | [...] Description | +--------+---------+ + + + | 11/17/ | Office | [facility] | Agus Steward, | Postop check | | 2016 | Visit | ORTHOPEDIC SURGERY | [address] [place] [address] | (Primary Dx) | | | | [address] [place] [address] | [facility] [place] | | | | | [place], [place] | [address] | | | | | [address] | | | | | | [phone] | | | +--------+---------+ + + + [...] + + + + | Temperature | 36.7 C (98 F) | 11/18/2015 8:37 AM | | | | | PDT [...] + + + + | Weight | - | - | | + + + + + | Height | - | - | | + + + + + | Body Mass Index | - | - | | + + + + + documented in this encounter Progress Notes Agus Steward MD - 11/18/2015 8:51 AM PDTPatient returns follow-up right total knee art hroplasty He is doing well and better all the time He took himself off of all narcotics and experiencing withdrawal symptoms but he is doing f ine On physical exam he comes into full extension and he flexes down to 110 Good stability throughout the arc of motion We discussed future follow-up and dental prophylaxis He will let us know if he had any problems documented in this en counter Plan of Treatment Not on filedocumented as of this encounter Visit Diagnoses + + | Diagnosis | + + | Postop check - Primary Follow-up examination, following unspecified surgery | + + documented in this encounter"
--- OUTSIDE RECORDS SUMMARY | ~2019-09-25 | XMS | Encounter Summary ---
Demographics + + + | Address | [address] | | | [place] [address] | + + + | Home Phone | | + + + | Preferred Language | Unknown | + + + | Marital Status | | + + + | Hinduism Affiliation | 1027 | + + + | Race | Unknown | + + + | Ethnic Group | Unknown | + + + Author + + + | Author | [facility] | | | and [place] | + + + | Organization | [facility] | [...] [place] | | | | | [address] | | + + + + + Care Team Providers + +------+ + | Care Box Builder Name | Role | Phone | + +------+ + | Jhonny Jimenez MD | PCP | | + +------+ + Encounter Details +--------+ + + + + | Date | Type | Department | Care Team | Description | +--------+ + + + + | 09/10/ | Hospital | [facility] | Iesha Arnold | | | 2016 | Encounter | MED CTR ACUTE | D, PT [address] | | | | | PHYSICAL THERAPY | [address] [place] | | | | | [address] [place] | [address] | | | | | [place] [address] | | | | | | [phone] | | | +--------+ + + + [...]
--- OUTSIDE RECORDS SUMMARY | ~2019-09-25 | XMS | Encounter Summary ---
Demographics + + + | Address | [address] | | | [place] [address] | + + + | Home Phone | | + + + | Preferred Language | Unknown | + + + | Marital Status | | + + + | Zoroastrian Affiliation | 1027 | + + + [...] [place] | | | | | [address] | | + + + + + Care Team Providers + +------+ + | Care Ornamental Metal Worker Apprentice Name | Role | Phone | + +------+ + | Jhonny Jimenez MD | PCP | | + +------+ + Reason for Visit + + + | Reason | Comments | + + + | Medication Refill | | + + + Encounter Details +--------+--------+ + + + | Date | Type | Department | Care Team | Description | +--------+--------+ + + + | 10/06/ | Refill | [facility] [place] | Agus Steward, | Medication Refill | | 2015 | | ORTHOPEDIC SURGERY | [address] [facility] | | | | | [address] [facility] | [place], [place] | | | | | [place], [place] | [address] | | | | | [address] | | | | | | [phone] | | | +--------+--------+ + + + Social History + +-------+ [...]
--- OUTSIDE RECORDS SUMMARY | ~2019-09-25 | XMS | Encounter Summary ---
Demographics + + + | Address | [address] | | | [place] [address] | + + + | Home Phone | | + + + | Preferred Language | Unknown | + + + | Marital Status | | + + + | Confucianist Affiliation | 1027 | + + + | Race | Unknown | + + + | Ethnic Group | Unknown | + + + Author + + + | Author | [facility] | | | and [place] | + + + | Organization | [facility] | | | [...] [place] | | | | | [address] | | + + + + + Care Team Providers + +------+ + | Care Marketing Services Vice President Name | Role | Phone | + +------+ + PCP | Unavailable | + +------+ + Encounter Details +--------+ + + + + | Date | Type | Department | Care Team | Description | +--------+ + + + + | 04/02/ | Hospital | [facility] | | | | 1998 - | Encounter | MED CTR GENERIC IP | | | | | | CONV DEPT [address] | | | | 04/03/ | | [place], | | | | 1996 | | [place] [address] | | | | | | [phone] | | | +--------+ + + + [...]
--- OUTSIDE RECORDS SUMMARY | ~2019-09-25 | XMS | Encounter Summary ---
Demographics + + + | Address | [address] | | | [place] [address] | + + + | Home Phone | | + + + | Preferred Language | Unknown | + + + | Marital Status | | + + + | Scientology Affiliation | 1027 | + + + | Race | Unknown | + + + | Ethnic Group | Unknown | + + + Author + + + | Author | [facility] | | | and [place] | + + + | Organization | [facility] | | [...] [place] | | | | | [address] | | + + + + + Care Team Providers + +------+ + | Care Materials Engineering Technician Name | Role | Phone | [...] 2015 | | ORTHOPEDIC SURGERY | [address] [facility] | | | | | [address] [facility] | [place], [place] | | | | | [place], [place] | [address] | | | | | [address] | | | | | | [phone] | | | +--------+--------+ + + + [...]
--- OUTSIDE RECORDS SUMMARY | ~2019-09-25 | XMS | Encounter Summary ---
Demographics + + + | Address | [address] | | | [place] [address] | + + + | Home Phone | | + + + | Preferred Language | Unknown | + + + | Marital Status | | + + + | Muslim Affiliation | 1027 | + + + [...] [place] | | | | | [address] | | + + + + + Care Team Providers + +------+ + | Care Dye Tub Tender Name | Role | Phone | [...] | | | | | | | [place] | | | | | | [...] Arthroplasty | | | | [address] | [place] | | | | | [place] | [address] | | | | | [address] | | | | | | [phone] | | | +--------+---------+ + + + [...] tablet by mouth Daily. aka: CHIKA Muller [facility] - SUPPORTING STATEMENTS OF MEDICAL NECESSITY AND [...] Electronically signed by: Agus Steward, 09/11/2015 7:17 [facility] documented in this en counter Discharge Instructions Instructions Greta Liu, PharmD - 09/11/2015Can shower with the waterproof dressing i n place Keep working on range of motion stretches best you can on your own before therapy starts ou tpatient Call with any concerns Do not exceed 4,000 mg of acetaminophen (Tylenol) per day. Hydrocodone-acetaminophen ([place] ) and Oxycodone-acetaminophen (Percocet) have 325 mg [...] | | | | g/dL | [facility] | | | | | | MEDICAL [...] [address] | [place] | [phone] | | [facility] | | [address] | | | - LABORATORY | | [...] | | | FILTRATION | mL/min/1.73m2 | [facility] | | | [place] | RATE,ESTIMATED | | MEDICAL | | | | mL/min/1.60l1Hxfc than | | CENTER - | | [...] | ine Ratio | | | [facility] | | | | | [...] [address] | [place] | [phone] | | [facility] | | [address] | | | - LABORATORY | | [...] [address] | [place] | [phone] | | [facility] | | [address] | | | - LABORATORY | | [...] | | | FILTRATION | mL/min/1.73m2 | [facility] | | | [place] | RATE,ESTIMATED | | MEDICAL | | | | mL/min/1.96a2Uwzl than | | CENTER - | | [...] [address] | [place] | [phone] | | [facility] | | [address] | | | - LABORATORY | | [...] + | [address] | [address] | [place] | [phone] | | [facility] | | [address] | | | - LABORATORY | | [...] | | | FILTRATION | mL/min/1.73m2 | [facility] | | | [place] | RATE,ESTIMATED | | MEDICAL | | | | mL/min/1.36k9Uqrl than | | CENTER - | | [...] [address] | [place] | [phone] | | [facility] | | [address] | | | - LABORATORY | | [...]
--- OUTSIDE RECORDS SUMMARY | ~2019-09-25 | XMS | Encounter Summary ---
Demographics + + + | Address | [address] | | | [place] [address] | + + + | Home Phone | | + + + | Preferred Language | Unknown | + + + | Marital Status | | + + + | Taoism Affiliation | 1027 | + + + | Race | Unknown | + + + | Ethnic Group | Unknown | + + + Author + + + | Author | [facility] | | | and [place] | + + + | Organization | [facility] | | | [...] [place] | | | | | [address] | | + + + + + Care Team Providers + +------+ + | Care Mellowing Machine Operator Name | Role | Phone [...] [address] [place] | [place], [place] | | | | | [place] [address] | [address] | | | | | [phone] | | | +--------+ + + + [...]
--- OUTSIDE RECORDS SUMMARY | ~2019-09-25 | XMS | Encounter Summary ---
Demographics + + + | Address | [address] | | | [place] [address] | + + + | Home Phone | | + + + | Preferred Language | Unknown | + + + | Marital Status | | + + + | Sikh Affiliation | 1027 | + + + | Race | Unknown | + + + | Ethnic Group | Unknown | + + + Author + + + | Author | [facility] | | | and [place] | + + + | Organization | [facility] | | | [...] [place] | | | | | [address] | | + + + + + Care Team Providers + +------+ + | Care Sieve Repairer Name | Role | Phone | + [...] | Specialty | Physical | Diagnoses | [place], | PRE[facility] | | | Services | Therapy | Status post | Agus Wong MD | PHYSICAL | | | Required | | total right | [address] | THERAPY - | | | | | knee | [place] | [place] | | | | | replacement | [place], [place] | [place] | | | | | Right knee | [address] | [address] | | | | | pain, | Phone: | ST | | | | | unspecified | [phone] | [place] | | | | | chronicity | Fax: | [place], [place] | | | | | | [phone] | [address] | | | | | | | Phone: | | | | | | | [phone] | | | | | | | Fax: | | | | | | | [phone] | +--------+ + + + + + Encounter Details +--------+ + + + + | Date | Type | Department | Care Team | Description | +--------+ + + + + | 09/10/ | Orders Only | [facility] [place] | Agus Steward, | Status post total | | 2016 | | ORTHOPEDIC SURGERY | MD [address] [facility] | right knee | | | | [address] [facility] | [place], [place] | replacement (Primary | | | | [place], [place] | [address] | Dx); Right knee | | | | [address] | | pain, unspecified | | | | [phone] | | chronicity | +--------+ + + [...]
--- OUTSIDE RECORDS SUMMARY | ~2019-09-25 | XMS | Encounter Summary ---
Demographics + + + | Address | [address] | | | [place] [address] | + + + | Home Phone | | + + + | Preferred Language | Unknown | + + + | Marital Status | | + + + | Yazidism Affiliation | 1027 | + + + | Race | Unknown | + + + | Ethnic Group | Unknown | + + + Author + + + | Author | [facility] | | | and [place] | + + + | Organization | [facility] | | | [...] [place] | | | | | [address] | | + + + + + Care Team Providers + +------+ + | Care Billet Shearer Name | Role | Phone | + +------+ + PCP | Unavailable | + +------+ + Encounter Details +--------+ + + + + | Date | Type | Department | Care Team | Description | +--------+ + + + + | 04/02/ | Hospital | [facility] | | | | 1998 - | Encounter | MED CTR GENERIC IP | | | | | | CONV DEPT [address] | | | | 04/03/ | | [place], | | | | 1996 | | [place] [address] | | | | | | [phone] | | | +--------+ + + + [...]
--- OUTSIDE RECORDS SUMMARY | ~2019-09-25 | XMS | Encounter Summary ---
Demographics + + + | Address | [address] | | | [place] [address] | + + + | Home Phone | | + + + | Preferred Language | Unknown | + + + | Marital Status | | + + + | Anglican Affiliation | 1027 | + + + | Race | Unknown | + + + | Ethnic Group | Unknown | + + + Author + + + | Author | [facility] | | | and [place] | + + + | Organization | [facility] | | [...] [place] | | | | | [address] | | + + + + + Care Team Providers + +------+ + | Care Project Executive Name | Role | Phone | + +------+ + | Jhonny Jimenez MD | PCP | | + +------+ + Encounter Details +--------+ + + + + | Date | Type | Department | Care Team | Description | +--------+ + + + + | 09/03/ | Hospital | [facility] | Agus Steward, | Preop testing; | | 2016 | Encounter | MED CTR LABORATORY | MD [address] | Essential | | | | [address] [place] | [place], [place] | hypertension, | | | | [place], [place] | [address] | hypertension with | | | | [address] | | unspecified goal; | | | | [phone] | | Primary | | | | [...] | [address] | [place] | [phone] | | [facility] | | [address] | | | - LABORATORY | | [...] ST. | [address] | [place], [place] | [phone] | | [facility] | | [address] | | | - LABORATORY | | [...] ST. | [address] | [place], [place] | [phone] | | [facility] | | [address] | | | - LABORATORY | | [...] | + +--------+ + + + | Albumin/Scoo | 1.5 | 0.8 - 2.0 | [...] + | [facility] | [address] | [place] | [phone] | | [facility] | | [address] | | | - LABORATORY | | [...] mL/min/1.73m2 | [facility] | | | [place] | RATE,ESTIMATED | | MEDICAL | | | | mL/min/1.92g9Zsuf than | | CENTER - | | [...] ST. | [address] | [place] | [phone] | | [facility] | | [address] | | | - LABORATORY | | [...] + | [facility] | [address] | [place] | [phone] | | [facility] | | [address] | | | - LABORATORY | | [...]
--- OUTSIDE RECORDS SUMMARY | ~2019-09-25 | XMS | Encounter Summary ---
Demographics + + + | Address | [address] | | | [place] [address] | + + + | Home Phone [...] [place] | | | | | [address] | | + + + + + Care Team Providers + +------+ + | Care Cake Icer And Packer Name | Role | Phone | + +------+ + | Jhonny Jimenez MD | PCP | | + +------+ + Encounter Details +--------+ + + + + | Date | Type | Department | Care Team | Description | +--------+ + + + + | 10/21/ | Documentati | [facility] [place] | Bill Ferraro MD | | | 2014 | on | GASTROENTEROLOGY | [address] | | | | | [address] [facility] | [place], [place] | | | | | [address] [place] | [address] | | | | | [address] | [phone] | | | | | [phone] | | | +--------+ + + + [...] documented as of this encounter Progress Notes Anahi Tang RN - 10/21/2014 8:20 AM PDTDr. Ferraro reviewed pathology from procedure da te 10/02/14. Pathology result letter dictated, received from medical records, and mailed to sarah caicedo on 10/16/14. Copy of pathology letter has been sent back to medical records to be scanned into [facility] [employer]. Copy of pathology letter has been mailed to patient's listed PCP with pathology report if o [facility] 10/21/14. Patient had follow up with Grgeoria Hawkins 10/15/14. Recall entered. Recommend 5 year follow up colonoscopy for polyp surveillance. documented in this en counter Plan of Treatment Not on filedocumented as of this encounter Visit Diagnoses Not on filedocumented in this encounter"
--- OUTSIDE RECORDS SUMMARY | ~2019-09-25 | XMS | Encounter Summary ---
Demographics + + + | Address | [address] | | | [place] [address] | + + + | Home Phone [...] [place] | | | | | [address] | | + + + + + Care Team Providers + +------+ + | Care Line Installer Name | Role | Phone | [...] | | | | | | | [place] | | | | | | [...] + + | 09/07/ | Hospital | [facility] | Agus Steward, | Primary | | 2016 - | Encounter | MED CTR SURGICAL | MD [address] | osteoarthritis of | | | | [address] [place] | [place] | right knee (Primary | | 09/10/ | | [place] [address] | [address] | Dx) | | 2015 | | [phone] | | | +--------+ + + + [...] tablet by mouth Daily. aka: CHIKA Muller [facility] - SUPPORTING STATEMENTS OF MEDICAL NECESSITY AND [...] signed by: Agus Steward, 09/11/2015 7:17 [facility] documented in this en counter Discharge Instructions Instructions Greta Liu, PharmD - 09/11/2015Can shower with the waterproof dressing i n place Keep working on range of motion stretches best you can on your own before therapy starts ou tpatient Call with any concerns Do not exceed 4,000 mg of acetaminophen (Tylenol) per day. Hydrocodone-acetaminophen ([place] ) and Oxycodone-acetaminophen (Percocet) have 325 mg [...] providers and keep list current. Greta Morrissey PHARMD 09/11/2015 11:51 Agus Herrera MD [...] [address] | [place] | [phone] | | [facility] | | [address] | | | - LABORATORY | | [...] | | | | | mg/dL | [facility] | | | | | | MEDICAL | | | | | | CENTER - | | | | | | LABORATORY | | + + + + + + | eGFR if not | >60Comment: GLOMERULAR | >=60 | [facility] | | | | FILTRATION | mL/min/1.73m2 | [facility] | | | BELARUSIAN | RATE,ESTIMATED | | MEDICAL | | | | mL/min/1.59c1Nafw than | | CENTER - | | [...] | | | | | mg/dL | [facility] | | | | | | MEDICAL [...] [address] | [place] | [phone] | | [facility] | | [address] | | | - LABORATORY | | [...] [address] | [place] | [phone] | | [facility] | | [address] | | | - LABORATORY | | [...] | | | FILTRATION | mL/min/1.73m2 | [facility] | | | BELARUSIAN | RATE,ESTIMATED | | MEDICAL | | | | mL/min/1.86i7Sguj than | | CENTER - | | [...] [address] | [place] | [phone] | | [facility] | | [address] | | | - LABORATORY | | [...] [address] | [place] | [phone] | | [facility] | | [address] | | | - LABORATORY | | [...] | | | FILTRATION | mL/min/1.73m2 | [facility] | | | BELARUSIAN | RATE,ESTIMATED | | MEDICAL | | | | mL/min/1.00x0Ylkg than | | CENTER - | | [...] [address] | [place] | [phone] | | [facility] | | [address] | | | - LABORATORY | | [...]
--- OUTSIDE RECORDS SUMMARY | ~2019-09-25 | XMS | Encounter Summary ---
Demographics + + + | Address | [address] | | | [place] [address] | + + + | Home Phone | | + + + | Preferred Language | Unknown | + + + | Marital Status | | + + + | Oriental Orthodox Affiliation | 1027 | + + + | Race | Unknown | + + + | Ethnic Group | Unknown | + + + Author + + + | Author | [facility] | | | and [place] | + + + | Organization | [facility] | | | [...] [place] | | | | | [address] | | + + + + + Care Team Providers + +------+ + | Care Dispatch Specialist Name | Role | Phone | + +------+ + | Jhonny Jimenez MD | PCP | | + +------+ + Encounter Details +--------+ + + + + | Date | Type | Department | Care Team | Description | +--------+ + + + + | 09/05/ | Abstract | [facility] [place] | [facility], | | | 2014 | | GASTROENTEROLOGY | [address] | | | | | [address] [place] | [place], [place] | | | | | [address] [place], [place] | [place], [place] | | | | | [address] | [address] | | | | | [phone] | | | +--------+ + + + [...] Comments | + + +---------+ + | Not Asked | | | sober since 07/2013 | [...] + | HEPATITIS C | Routin | 05/24/2012 | | Results for this | | RNA,QUANTITATIVE,PCR | e | 9:59 AM | | procedure are in the | | | | PST | | results section. | + +--------+ + + + | HEPATITIS C | Routin | 05/29/2011 | | Results for this | | RNA,QUANTITATIVE,PCR | e | 10:53 PM | | procedure are in the | | | | PST | | results section. | + +--------+ + + + | HEPATITIS C | Routin | 12/20/2009 | | Results for this | | RNA,QUANTITATIVE,PCR | e | 10:54 PM | | procedure are in the | | | | PDT | | results section. | + +--------+ + + + documented in this encounter Results Hepatitis C RNA, quantitative, PCR (05/24/2012 9:59 AM PST) + + + + + + | Component | Value | Ref Range | Performed | Pathologist | | | | | At | Signature | + + + + + + | HCV | 6.3 | | [facility] | | | Quantitativ | | | [facility] | | | e Log | | | MEDICAL | | | | | | CENTER - | | | | | | LABORATORY | | + + + + + + | HCV | 2,007,716 | | [facility] | | | Quantitativ | | | [facility] | | | e | | | MEDICAL | | | [...] [address] | [place] | | | [facility] | | [address], [facility] | | | - LABORATORY | | | | + + + + + Hepatitis C RNA, quantitative, PCR (05/29/2011 10:53 PM PST) + +---------+ + + + | Component | Value | Ref Range | Performed | Pathologist | | | | | At | Signature | + +---------+ + + + | HCV | 5.7 | | [facility] | | | Quantitativ | | | [facility] | | | e Log | | | MEDICAL | | | | | | CENTER - | | | | | | LABORATORY | | + +---------+ + + + | HCV | 502,646 | | [facility] | | | Quantitativ | | | [facility] | | | e | | | MEDICAL | | | | | | CENTER - | | | | | | LABORATORY | | + +---------+ + + + + + | Specimen | + + | Blood specimen | | (specimen) | + + + +---------+ + + | Performing | Address | City/State/Zipcode | Phone Number | | Organization | | | | + +---------+ + + | [address] | | | | | [facility] | | | | | - LABORATORY | | | | + +---------+ + + Hepatitis C RNA, quantitative, PCR (12/20/2009 10:54 PM PDT) + + + + + + | Component | Value | Ref Range | Performed | Pathologist | | | | | At | Signature | + + + + + + | HCV | 6.5 | | [facility] | | | Quantitativ | | | [facility] | | | e Log | | | MEDICAL | | | | | | CENTER - | | | | | | LABORATORY | | + + + + + + | HCV | 2,959,150 | | [facility] | | | Quantitativ | | | [facility] | | | e | | | MEDICAL | | | | | | CENTER - | | | | | | LABORATORY | | + + + + + + + + | Specimen | + + | Blood specimen | | (specimen) | + + + +---------+ + + | Performing | Address | City/State/Zipcode | Phone Number | | Organization | | | | + +---------+ + + | [facility] | | | | | [facility] | | | | | - LABORATORY | | | | + +---------+ + + documented in this encounter Visit Diagnoses Not on filedocumented in this encounter"
--- OUTSIDE RECORDS SUMMARY | ~2019-09-25 | XMS | Encounter Summary ---
Demographics + + + | Address | [address] | | | [place] [address] | + + + | Home Phone [...] [place] | | | | | [address] | | + + + + + Care Team Providers + +------+ + | Care Administrative Assistant Office Manager Name | Role | Phone | [...] ogy | Special | Shruthi, | MD Bill | | | Required | | screening | [place], | [address] | | | | | for | TILE TRIMMER [address] | [place], | | | | | malignant | [place], [place] | [place] [address] | | | | | neoplasms, | [address] [place] | Phone: | | | | | colon | [place], [place] | [phone] | | | | | Procedures | [address] | Fax: | | | | | [place] | Phone: | [phone] | | | | | COLONOSCOPY | [phone] | | | | | | FLX DX | Fax: | | | | | | W/COLLJ SPEC | [phone] | | | | | | WHEN PFRMD | | | | | | | [place] | | | | | | | COLONOSCOPY | | | | | | | W/BIOPSY | | | | | | | SINGLE/MULTI | | | | | | | PLE [place] | | | | | | | [...] | [address] [place] | [place], [place] [address] | neoplasms, colon | | | | [address] [place], [place] | [place], [place] | (Primary Dx) | | | | [address] | [address] | | | | | [phone] | | | +--------+ + + + [...]
--- OUTSIDE RECORDS SUMMARY | ~2019-09-25 | XMS | Encounter Summary ---
Demographics + + + | Address | [address] | | | [place] [address] | + + + | Home Phone | | + + + | Preferred Language | Unknown | + + + | Marital Status | | + + + | Congregation Affiliation | 1027 | + + + | Race | Unknown | + + + | Ethnic Group | Unknown | + + + Author + + + | Author | [facility] | | | and [place] | + + + | Organization | [facility] | | | [...] [place] | | | | | [address] | | + + + + + Care Team Providers + +------+ + | Care Supervisor Blood Name | Role | Phone | + +------+ + | Jhonny Jimenez MD | PCP | | + +------+ + Encounter Details +--------+ + + + + | Date | Type | Department | Care Team | Description | +--------+ + + + + | 09/15/ | Hospital | [facility] | [facility], | Chronic hepatitis C | | 2015 | Encounter | MED CTR ULTRASOUND | [address] | without hepatic coma | | | | [address] [place] | [place] | (HCC) | | | | [place], [place] | [place], [place] | | | | | [address] | [address] | | | | | [phone] | | | | | | | Bill Mendez | | | | | | Jr. Technologist | | +--------+ + + + + [...] | + +--------+ + + + | US ABDOMEN LIMITED | Routin | 09/15/2014 | Chronic hepatitis | Results for this | | | e | 8:22 AM | C without hepatic | procedure are in the | | | | PDT | coma (HCC) | results section. | + +--------+ + + + documented in this encounter Results US Abdomen Limited (09/15/2014 8:22 AM PDT) + + | Specimen | + + | | + + + + + | Narrative | Performed At | + + + | US ABDOMEN LIMITED 09/15/2014 8:00 AM HISTORY: HCV. | [facility] | | COMPARISON: None. PROTOCOL: Lacy scale and Doppler images of the | [facility] | | abdomen. FINDINGS: The gallbladder is [...] + | [facility] | [address] | [place] | [phone] | | [facility] | | [address] | | | - IMAGING | | | | + + + + + documented in this encounter Visit Diagnoses + + | Diagnosis | + + | Chronic hepatitis C without hepatic coma (HCC) | + + documented in this encounter"
--- OUTSIDE RECORDS SUMMARY | ~2019-09-25 | XMS | Encounter Summary ---
Demographics + + + | Address | [address] | | | [place] [address] | + + + | Home Phone | | + + + | Preferred Language | Unknown | + + + | Marital Status | | + + + | Confucianism Affiliation | 1027 | + + + | Race | Unknown | + + + | Ethnic Group | Unknown | + + + Author + + + | Author | [facility] | | | and [place] | + + + | Organization | [facility] | | | [...] [place] | | | | | [address] | | + + + + + Care Team Providers + +------+ + | Care Direct Of Real Estate Name | Role | Phone | + +------+ + | Jhonny Jimenez MD | PCP | | + +------+ + Encounter Details +--------+ + + + + | Date | Type | Department | Care Team | Description | +--------+ + + + + | 09/17/ | Hospital | [facility] | Agus Steward, | Right knee pain | | 2015 | Encounter | MED CTR SUSAN XRAY | MD [address] | | | | | [address] [place] | [place], [place] | | | | | [place], [place] | [address] | | | | | [address] | | | | | | [phone] | | | +--------+ + + + [...] + +--------+ + + + | XR KNEE RIGHT 3 VW | Routin | 09/17/2014 | Right knee pain | Results for this | | | e | 10:29 AM | | procedure are in the | | | | PDT | | results section. | + +--------+ + + + documented in this encounter Results XR Knee Right 3 Vw (09/17/2014 10:29 AM PDT) + + | Specimen | + + | | + + + + + | Narrative | Performed At | + + + | XR KNEE RIGHT 3 VW 09/17/2014 10:29 AM HISTORY: right knee pain. | [facility] | | COMPARISON: 04/01/2013. FINDINGS: The right knee demonstrates | [facility] | | evidence for prior ACL repair with screw hardware and tunneling | [facility] | | procedure. There is severe lateral [...] | + + + + + | [facility] | [address] | [place] | [phone] | | [facility] | | [address] | | | - IMAGING | | | | + + + + + documented in this encounter Visit Diagnoses + + | Diagnosis | + + | Right knee pain Pain in joint, lower leg | + + documented in this encounter"
--- OUTSIDE RECORDS SUMMARY | ~2019-09-25 | XMS | Encounter Summary ---
Demographics + + + | Address | [address] | | | [place] [address] | + + + | Home Phone [...] [place] | | | | | [address] | | + + + + + Care Team Providers + +------+ + | Care Ticker Wirer Name | Role | Phone | + +------+ + PCP | Unavailable | + +------+ + Encounter Details +--------+ + + + + | Date | Type | Department | Care Team | Description | +--------+ + + + + | 10/29/ | Hospital | [facility] | | | | 2002 | Encounter | MED CTR LABORATORY | | | | | | [address] | | | | | | [place] | | | | | | [address] | | | | | | [phone] | | | +--------+ + + + [...]
--- OUTSIDE RECORDS SUMMARY | ~2019-09-25 | XMS | Encounter Summary ---
Demographics + + + | Address | [address] | | | [place] [address] | + + + | Home Phone | | + + + | Preferred Language | Unknown | + + + | Marital Status | | + + + | Yarsani Affiliation | 1027 | + + + | Race | Unknown | + + + | Ethnic Group | Unknown | + + + Author + + + | Author | [facility] | | | and [place] | + + + | Organization | [facility] | | [...] [place] | | | | | [address] | | + + + + + Care Team Providers + +------+ + | Care Cook Sauce Name | Role | Phone | + +------+ + PCP | Unavailable | + +------+ + Encounter Details +--------+ + + + + | Date | Type | Department | Care Team | Description | +--------+ + + + + | 12/02/ | Hospital | [facility] | | | | 2002 | Encounter | MED CTR LABORATORY | | | | | | [address] | | | | | | [place] | | | | | | [address] | | | | | | [phone] | | | +--------+ + + + [...]
--- OUTSIDE RECORDS SUMMARY | ~2019-09-25 | XMS | Encounter Summary ---
Demographics + + + | Address | [address] | | | [place] [address] | + + + | Home Phone | | + + + | Preferred Language | Unknown | + + + | Marital Status | | + + + | Buddhism Affiliation | 1027 | + + + | Race | Unknown | + + + | Ethnic Group | Unknown | + + + Author + + + | Author | [facility] | | | and [place] | + + + | Organization | [facility] | | [...] [place] | | | | | [address] | | + + + + + Care Team Providers + +------+ + | Care Parts Counter Sales Person Name | Role | Phone | + [...] | | | | | | | LA TOTAL | | | | | | [...] + + + + | 09/07/ | Anesthesia | [facility]YLEE [facility]KEON | Jacques Luis, | | | 2015 | Event | MED CTR OR INTRA OP | MD [address] | | | | | [address] | [place] | | | | | [place] | [address] | | | | | [address] | | | | | | [phone] | | | +--------+ + + + + Anesthesia Record + + + + + | Procedure Name | Responsible | Anesthesia Start | Anesthesia Stop Time | | | Anesthesiologist | Time | | + + + + + | Right Total Knee | Jacques Luis MD | 09/08/15 1428 | 09/08/15 1639 | | Arthroplasty (Right | | | | | Knee) | | | | + + + + + +----+---+ + + | Da | T | Event | Comment | | te | i | | | | | m | | | | | e | | | +----+---+ + + | 04 | 1 | | | | /2 | 4 | | | | 6/ | 1 | | | | 20 | 8 | | | | 16 | | | | +----+---+ + + | | 1 | An Checkout | Pre-use anesthesia machine/equipment checkout. | | | 4 | | | | | 1 | | | | | 9 | | | +----+---+ + + | | 1 | Pre-Procedu | | | | 4 | ral Timeout | | | | 1 | Completed | | | | 9 | | | +----+---+ + + | | 1 | An Start | | | | 4 | Data | | | | 1 | | | | | 9 | | | +----+---+ + + | | 1 | Block Start | | | | 4 | | | | | 2 | | | | | 2 | | | +----+---+ + + | | 1 | Antibiotic | | | | 4 | Given | | | | 2 | | | | | 2 | | | +----+---+ + + | | 1 | AN Block | | | | 4 | End | | | | 2 | | | | | 8 | | | +----+---+ + + | | 1 | an stop | | | | 4 | data | | | | 2 | | | | | 8 | | | +----+---+ + + | | 1 | An Start | Reassessment prior to anesthesia induction/procedure. | | | 4 | | | | | 2 | | | | | 8 | | | +----+---+ + + | | 1 | Preoxygenat | | | | 4 | ed | | | | 3 | | | | | 2 | | | +----+---+ + + | | 1 | An | | | | 4 | Induction | | | | 3 | | | | | 3 | | | +----+---+ + + | | 1 | An | | | | 4 | Intubation | | | | 3 | | | | | 4 | | | +----+---+ + + | | 1 | AN Bite | | | | 4 | Block | | | | 3 | | | | | 5 | | | +----+---+ + + | | 1 | [place] | | | | 4 | 43-degrees | | | | 3 | | | | | 9 | | | +----+---+ + + | | 1 | First | | | | 4 | Inc/Proc St | | | | 4 | | | | | 5 | | | +----+---+ + + | | 1 | An Tourn | 350mmHg | | | 4 | Inflated | | | | 4 | | | | | 6 | | | +----+---+ + + | | 1 | An Tourn | | | | 6 | Deflated | | | | 2 | | | | | 5 | | | +----+---+ + + | | 1 | [place] off | | | | 6 | | | | | 2 | | | | | 9 | | | +----+---+ + + | | 1 | an stop | | | | 6 | data | | | | 3 | | | | | 0 | | | +----+---+ + + | | 1 | Extubated | | | | 6 | Awake | | | | 3 | | | | | 3 | | | +----+---+ + + | | 1 | An Stop | Patient handed off to recovery nurse. | | | 3 | | | | | 9 | | | +----+---+ + + +------+ | Meds | +------+ + + + | Name | Total | + + + | midazolam | 2 mg | + + + | fentaNYL | 100 mcg | + + + | lidocaine 2% (PF) | 200 mg | + + + | propofol | 200 mg | + + + | dexamethasone | 10 mg | + + + | ondansetron | 4 mg | + + + | ropivacaine 0.5% | 22 mL | + + + | ceFAZolin (ANCEF, KEFZOL) 2 g in | 2 g | | sodium chloride 0.9% 50 mL IVPB | | + + + | tranexamic acid (CYKLOKAPRON) | 1,000 mg | | 1,000 mg in sodium chloride 0.9% | | | 100 mL IVPB | | + + + | tranexamic acid (CYKLOKAPRON) | 1,000 mg | | 1,000 mg in sodium chloride 0.9% | | | 100 mL IVPB | | + + + | ePHEDrine | 10 mg | + + + | lactated ringers (LR) infusion | 900 mL | + + + + + | Name | + + | N2O Flow Rate (L/Min) | + + | O2 Flow Rate (L/Min) | + + | Insp O2 | + + | Exp SEV | + + | Air Flow Rate (L/Min) | + + + + | No blood administrations on file. | + + +--------+ + + + | Type | Details | Placement | Removal | +--------+ + + + | Periph | 09/08/15; 1321; [id number] | 09/08/15 1321 by | 09/11/15 0944 by | | eral | catheter system; 18 gauge, 1 05/18 | Gentry Hanks RN | Charmaine Greco RN | | IV | in length; distraction, | | | | | intradermal injection, tolerated | | | | | well; removed per physician; | | | | | 09/11/15; 0944 | | | +--------+ + + + | Airway | Placement Date: 09/08/15; | 09/08/15 1434 by | 09/08/15 1633 by | | | Placement Time: 1434; Mask | Jacques Luis MD | Jacques Luis MD | | | Ventilation: EZ; Airway Type: | | | | | laryngeal mask, cuffed; Size: 5; | | | | | Tube Reference Point: secure and | | | | | patent; Placement Check: exhaled | | | | | CO2 detection device; Removal | | | | | Date: 09/08/15; Removal Time: | | | | | 1633 | | | +--------+ + + + | Read | 09/08/15; 1457; Right; gina; | 09/08/15 1457 by | 08/07/18 1342 by | | only - | 08/07/18 (Completed/Removed by | Collin Cormier RN | User Epic | | | Utility); 1342 (Completed/Removed | | | | Incisi | by Utility) | | | | on | | | | +--------+ + + + documented in this encounter Social History + +-------+ +--------+------+ | Tobacco [...] | + +--------+ + + + | ANE NERVE BLOCK | Routin | 2015 | | Results for this | | CATHETER NOTE | e | 3:01 PM | | procedure are in the | | | | PDT | | results section. | + +--------+ + + + documented in this encounter Results Anesthesia Perineural Note (2015 3:01 PM PDT) + + + | Narrative | Performed At | + + + | Jacques Luis MD 2015 15:01 Perineural Procedure Note | | | 2015 14:25 Nerve block: sciatic Laterality: right Provider | | | requested procedure: Bin Indication: postoperative analgesia | | | Preprocedure check: patient identified, procedure and rescue | | | equipment checked, preevaluation including airway assessment | | | complete, risks/benefits discussed, consent obtained, timeout | | | performed, reassessment prior to procedure and monitors applied | | | Patient position: prone Preparation: chlorhexidine/isopropyl alcohol | | | Technique: ultrasound Radiology image stored in patient's chart: | | | ultrasound Needle: stimulating and insulated Needle size: 21 g | | | Needle length: 4 in Medication administered through: needle Negative | | | findings: no blood aspirated and no paresthesia Total volume of | | | local anesthetic solution administered: 15 (Incremental injection in | | | 3-4 mL increments with negative aspiration each time.) Ease of | | | procedure: 1 Attempts: easy Comments: Regional block placed for | | | postoperative pain control at request of patient and surgeon. | | | Ultrasound utilized throughout entirety of procedure for the | | | purposes of directing the needle to nerve proximity and watching | | | spread of local anesthetic. Positive level and "donut" sign. | | | Ultrasound image in chart. NIBP/SpO2 monitoring. Please | | | see anesthesia record or flowsheet for vital sign documentation and | | | see anesthesia record or MAR for all medication documentation. | | | Performing provider: JACQUES LUIS [employer] Maintenance Worker: SMITH Hinojosa | | | Electronically Signed by: Jacques Luis MD | | | ESig date/time: 2015 14:59 Perineural | | | Procedure Note 2015 14:28 Nerve block: femoral Laterality: | | | right Provider requested procedure: Bin Indication: | | | postoperative analgesia Preprocedure check: patient identified, | | | procedure and rescue equipment checked, preevaluation including | | | airway assessment complete, risks/benefits discussed, consent | | | obtained, timeout performed, reassessment prior to procedure and | | | monitors applied Patient position: supine Preparation: | | | chlorhexidine/isopropyl alcohol Technique: ultrasound Radiology | | | image stored in patient's chart: ultrasound Needle: stimulating and | | | insulated Needle size: 21 g Needle length: 4 in Medication | | | administered through: needle Negative findings: no blood aspirated | | | and no paresthesia Total volume of local anesthetic solution | | | administered: 12 (Incremental injection in 3-4 mL increments with | | | negative aspiration each time.) Ease of procedure: 1 Attempts: | | | easy Comments: Regional block placed for postoperative pain | | | control at request of patient and surgeon. Ultrasound utilized | | | throughout entirety of procedure for the purposes of directing the | | | needle to nerve proximity and watching spread of local anesthetic. | | | Positive level and "donut" sign. Ultrasound image in chart. | | | NIBP/SpO2 monitoring. Please see anesthesia record or flowsheet | | | for vital sign documentation and see anesthesia record or MAR for | | | all medication documentation. Performing provider: MIKKI | | | JACQUES Haines [employer] Maintenance Worker: Gokul Burnett, AT Electronically Signed | | | by: Jacques Luis MD ESig | | | date/time: 2015 15:00 | | + + + Anesthesia Perineural Note (2015 3:01 PM PDT) + + + | Narrative | Performed At | + + + | Jacques Luis MD 2015 15:01 Perineural Procedure Note | | | 2015 14:25 Nerve block: sciatic Laterality: right Provider | | | requested procedure: Bin Indication: postoperative analgesia | | | Preprocedure check: patient identified, procedure and rescue | | | equipment checked, preevaluation including airway assessment | | | complete, risks/benefits discussed, consent obtained, timeout | | | performed, reassessment prior to procedure and monitors applied | | | Patient position: prone Preparation: chlorhexidine/isopropyl alcohol | | | Technique: ultrasound Radiology image stored in patient's chart: | | | ultrasound Needle: stimulating and insulated Needle size: 21 g | | | Needle length: 4 in Medication administered through: needle Negative | | | findings: no blood aspirated and no paresthesia Total volume of | | | local anesthetic solution administered: 15 (Incremental injection in | | | 3-4 mL increments with negative aspiration each time.) Ease of | | | procedure: 1 Attempts: easy Comments: Regional block placed for | | | postoperative pain control at request of patient and surgeon. | | | Ultrasound utilized throughout entirety of procedure for the | | | purposes of directing the needle to nerve proximity and watching | | | spread of local anesthetic. Positive level and "donut" sign. | | | Ultrasound image in chart. NIBP/SpO2 monitoring. Please | | | see anesthesia record or flowsheet for vital sign documentation and | | | see anesthesia record or MAR for all medication documentation. | | | Performing provider: JACQUES LUIS [employer] Maintenance Worker: SMITH Hinojosa | | | Electronically Signed by: Jacques Luis MD | | | ESig date/time: 2015 14:59 Perineural | | | Procedure Note 2015 14:28 Nerve block: femoral Laterality: | | | right Provider requested procedure: [place] Indication: | | | postoperative analgesia Preprocedure check: patient identified, | | | procedure and rescue equipment checked, preevaluation including | | | airway assessment complete, risks/benefits discussed, consent | | | obtained, timeout performed, reassessment prior to procedure and | | | monitors applied Patient position: supine Preparation: | | | chlorhexidine/isopropyl alcohol Technique: ultrasound Radiology | | | image stored in patient's chart: ultrasound Needle: stimulating and | | | insulated Needle size: 21 g Needle length: 4 in Medication | | | administered through: needle Negative findings: no blood aspirated | | | and no paresthesia Total volume of local anesthetic solution | | | administered: 12 (Incremental injection in 3-4 mL increments with | | | negative aspiration each time.) Ease of procedure: 1 Attempts: | | | easy Comments: Regional block placed for postoperative pain | | | control at request of patient and surgeon. Ultrasound utilized | | | throughout entirety of procedure for the purposes of directing the | | | needle to nerve proximity and watching spread of local anesthetic. | | | Positive level and "donut" sign. Ultrasound image in chart. | | | NIBP/SpO2 monitoring. Please see anesthesia record or flowsheet | | | for vital sign documentation and see anesthesia record or MAR for | | | all medication documentation. Performing provider: MIKKI, | | | JACQUES [place] [employer] Maintenance Worker: Gokul Burnett, AT Electronically Signed | | | by: Jacques Luis MD ESig | | | date/time: 2015 15:00 | | + + + documented in this encounter Visit Diagnoses Not on filedocumented in this encounter Administered Medications + +--------+ +------+------+------+ | Medication Order | MAR | Action | Dose | Rate | Site | | | Action | Date | | | | + +--------+ +------+------+------+ | ceFAZolin (ANCEF, KEFZOL) 2 g | Given | 09/08/19 | 2 g | | | | in sodium chloride 0.9% 50 mL | | 16 2:22 | | | | | IVPB 2 g, Intravenous, | | PM PDT | | | | | Administer over 30 Minutes, Prior | | | | | | | to Incision, Starting Tue | | | | | | | 09/08/15 at 1304, For 1 dose, | | | | | | | administer within 1 hour of | | | | | | | incision, Pre-op, Indications: | | | | | | | Surgical Prophylaxis | | | | | | + +--------+ +------+------+------+ +---+---+ | | | +---+---+ + +-------+ +-------+---+---+ | dexamethasone (DECADRON) 10 | Given | 09/08/19 | 10 mg | | | | mg/mL injection Intravenous, | | 16 2:36 | | | | | PRN, Starting Mon09/08/15 at | | PM PDT | | | | | 1436, Anesthesia Intra-op | | | | | | + +-------+ +-------+---+---+ +---+---+ | | | +---+---+ + +-------+ +-------+---+---+ | ePHEDrine 50 mg/mL injection | Given | 09/08/19 | 10 mg | | | | PRN, Starting Mon09/08/15 at | | 16 3:35 | | | | | 1535, Anesthesia Intra-op | | PM PDT | | | | + +-------+ +-------+---+---+ +---+---+ | | | +---+---+ + +-------+ +--------+---+---+ | fentaNYL injection PRN, Pain, | Given | 09/08/19 | 50 mcg | | | | Starting 09/08/15 at 1422, | | 16 2:31 | | | | | Anesthesia Intra-op | | PM PDT | | | | + +-------+ +--------+---+---+ +-------+ +--------+---+---+ | Given | 09/08/19 | 50 mcg | | | | | 16 2:22 | | | | | | PM PDT | | | | +-------+ +--------+---+---+ +---+---+ | | | +---+---+ + +-------+ +--------+---+---+ | lidocaine (PF) 2% injection | Given | 09/08/19 | 100 mg | | | | PRN, Starting 09/08/15 at | | 16 2:33 | | | | | 1433, Anesthesia Intra-op | | PM PDT | | | | + +-------+ +--------+---+---+ +-------+ +--------+---+---+ | Given | 09/08/19 | 100 mg | | | | | 16 2:25 | | | | | | PM PDT | | | | +-------+ +--------+---+---+ +---+---+ | | | +---+---+ + +-------+ +------+---+---+ | midazolam (VERSED) 1 mg/mL | Given | 09/08/19 | 2 mg | | | | injection Intravenous, PRN, | | 16 2:22 | | | | | Anxiety, Starting 09/08/15 at | | PM PDT | | | | | 1422, Anesthesia Intra-op | | | | | | + +-------+ +------+---+---+ +---+---+ | | | +---+---+ + +-------+ +------+---+---+ | ondansetron (ZOFRAN) injection | Given | 09/08/19 | 4 mg | | | | PRN, Nausea, Vomiting, Starting | | 16 2:36 | | | | | 09/08/15 at 1436, Anesthesia | | PM PDT | | | | | Intra-op | | | | | | + +-------+ +------+---+---+ +---+---+ | | | +---+---+ + +-------+ +--------+---+---+ | propofol (DIPRIVAN) injection | Given | 09/08/19 | 200 mg | | | | PRN, Starting Mon09/08/15 at | | 16 2:33 | | | | | 1433, Anesthesia Intra-op | | PM PDT | | | | + +-------+ +--------+---+---+ +---+---+ | | | +---+---+ + +-------+ +--------+---+---+ | ropivacaine (NAROPIN) 5 mg/mL | Given | 04/26/20 | 12 mLs | | | | (0.5%) injection PERINEURAL, | | 16 2:28 | | | | | PRN, Starting Mon09/08/15 at | | PM PDT | | | | | 1424, Anesthesia Intra-op | | | | | | + +-------+ +--------+---+---+ +-------+ +--------+---+---+ | Given | 09/08/19 | 10 mLs | | | | | 16 2:25 | | | | | | PM PDT | | | | +-------+ +--------+---+---+ +---+---+ | | | +---+---+ + +---------+ + +---+---+ | tranexamic acid (CYKLOKAPRON) | New Bag | 09/08/19 | 1,000 mg | | | | 1,000 mg in sodium chloride 0.9% | | 16 2:37 | | | | | 100 mL IVPB 1,000 mg, | | PM PDT | | | | | Intravenous, Administer over 30 | | | | | | | Minutes, ONCE, Mon09/08/15 at | | | | | | | 1330, For 1 dose, To be given in | | | | | | | the operating room prior to skin | | | | | | | incision Give another gram at the | | | | | | | end of the case, Pre-op | | | | | | + +---------+ + +---+---+ +---+---+ | | | +---+---+ + +---------+ + +---+---+ | tranexamic acid (CYKLOKAPRON) | New Bag | 09/08/19 | 1,000 mg | | | | 1,000 mg in sodium chloride 0.9% | | 16 4:05 | | | | | 100 mL IVPB 1,000 mg, | | PM PDT | | | | | Intravenous, Administer over 30 | | | | | | | Minutes, ONCE, 09/08/15 at | | | | | | | 1330, For 1 dose, To be given at | | | | | | | the end of the surgery, Pre-op | | | | | | + +---------+ + +---+---+ +---+---+ | | | +---+---+ documented in this encounter
--- OUTSIDE RECORDS SUMMARY | ~2019-09-25 | XMS | Encounter Summary ---
Demographics + + + | Address | [address] | | | [place] [address] | + + + | Home Phone | | + + + | Preferred Language | Unknown | + + + | Marital Status | | + + + | Judaism Affiliation | 1027 | + + + | Race | Unknown | + + + | Ethnic Group | Unknown | + + + Author + + + | Author | [facility] | | | and [place] | + + + | Organization | [facility] | | | [...] [place] | | | | | [address] | | + + + + + Care Team Providers + +------+ + | Care Director Plans Name | Role | Phone | + +------+ + | Jhonny Jimenez MD | PCP | | + +------+ + Encounter Details +--------+ + + + + | Date | Type | Department | Care Team | Description | +--------+ + + + + | 09/17/ | Hospital | [facility] | Agus Steward, | Right knee pain | | 2015 | Encounter | MED CTR SUSAN XRAY | MD [address] | | | | | [address] [place] | [place], [place] | | | | | [place], [place] | [address] | | | | | [address] | | | | | | [phone] | | | +--------+ + + + [...] repair with screw hardware and tunneling | [facility] | | procedure. There is severe [...] | + + + + + | [facility] | [address] | [place] | [phone] | | [facility] | | [address] | | | - IMAGING | | | | + + + + + documented in this encounter Visit Diagnoses + + | Diagnosis | + + | Right knee pain Pain in joint, lower leg | + + documented in this encounter"
--- OUTSIDE RECORDS SUMMARY | ~2019-09-25 | XMS | Encounter Summary ---
Demographics + + + | Address | [address] | | | [place] [address] | + + + | Home Phone | | + + + | Preferred Language | Unknown | + + + | Marital Status | | + + + | Presybeterian Affiliation | 1027 | + + + | Race | Unknown | + + + | Ethnic Group | Unknown | + + + Author + + + | Author | [facility] | | | and [place] | + + + | Organization | [facility] | | | and [...] [place] | | | | | [address] | | + + + + + Care Team Providers + +------+ + | Care Hostess Cashier Name | Role | Phone | + [...] | Telephone | [facility] [place] | [facility], | Other ([place] | | 2015 | | GASTROENTEROLOGY | [address] | attila) | | | | [address] [place] | [place], [place] [address] | | | | | [address] [place], [place] | [place], [place] | | | | | [address] | [address] | | | | | [phone] | | | +--------+ + + + [...]
--- OUTSIDE RECORDS SUMMARY | ~2019-09-25 | XMS | Encounter Summary ---
Demographics + + + | Address | [address] | | | [place] [address] | + + + | Home Phone | | + + + | Preferred Language | Unknown | + + + | Marital Status | | + + + | Catholic Affiliation | 1027 | + + + | Race | Unknown | + + + | Ethnic Group | Unknown | + + + Author + + + | Author | [facility] | | | and [place] | + + + | Organization | [facility] | | | [...] [place] | | | | | [address] | | + + + + + Care Team Providers + +------+ + | Care Lathe Operator Name | Role | Phone | [...] + + | 11/12/ | Office | [facility] | Agus Steward, | Left rotator cuff | | 2015 | Visit | ORTHOPEDIC SURGERY | [address] [place] [address] | tear (Primary Dx) | | | | [address] [facility] | [place], [place] | | | | | [place], [place] | [address] | | | | | [address] | | | | | | [phone] | | | +--------+---------+ + + + [...]
--- OUTSIDE RECORDS SUMMARY | ~2019-09-25 | XMS | Encounter Summary ---
Demographics + + + | Address | [address] | | | [place] [address] | + + + | Home Phone | | + + + | Preferred Language | Unknown | + + + | Marital Status | | + + + | Mormon Affiliation | 1027 | + + + [...] [place] | | | | | [address] | | + + + + + Care Team Providers + +------+ + | Care Mine Technician Name | Role | Phone | + +------+ + | Jhonny Jimenez MD | PCP | | + +------+ + Reason for Visit +--------+ + | Reason | Comments | +--------+ + | Other | fibrosure approved | +--------+ + Encounter Details +--------+ + + + + | Date | Type | Department | Care Team | Description | +--------+ + + + + | 09/09/ | Telephone | [facility] [place] | [place], | Other (fibrosure | | 2015 | | GASTROENTEROLOGY | [address]AD[address] | approved) | | | | [address] [place] | [place], [place] [address] | | | | | [address] [place], [place] | [place], [place] | | | | | [address] | [address] | | | | | [phone] | | | +--------+ + + + [...]
--- OUTSIDE RECORDS SUMMARY | ~2019-09-25 | XMS | Encounter Summary ---
Demographics + + + | Address | [address] | | | [place] [address] | + + + | Home Phone | | + + + | Preferred Language | Unknown | + + + | Marital Status | | + + + | Religion Affiliation | 1027 | + + + [...] [place] | | | | | [address] | | + + + + + Care Team Providers + +------+ + | Care Real Estate Representative Name | Role | Phone | + +------+ + | Jhonny Jimneez MD | PCP | | + +------+ [...] | [address] [place] | [place], [place] [address] | | | | | [address] [place], [place] | [place], [place] | | | | | [address] | [address] | | | | | [phone] | | | +--------+ + + + [...]
--- OUTSIDE RECORDS SUMMARY | ~2019-09-25 | XMS | Encounter Summary ---
Demographics + + + | Address | [address] | | | [place] [address] | + + + | Home Phone [...] [place] | | | | | [address] | | + + + + + Care Team Providers + +------+ + | Care Audio/Visual Operator Name | Role | Phone | + +------+ + | Jhonny Jimenez MD | PCP | | + +------+ + Encounter Details +--------+ + + + + | Date | Type | Department | Care Team | Description | +--------+ + + + + | 09/10/ | Hospital | [facility] | Iesha Arnold | | | 2016 | Encounter | MED CTR ACUTE | D, PT [address] | | | | | PHYSICAL THERAPY | [address] [place] | | | | | [address] [place] | [address] | | | | | [place] [address] | | | | | | [phone] | | | +--------+ + + + [...]
--- OUTSIDE RECORDS SUMMARY | ~2019-09-25 | XMS | Encounter Summary ---
Demographics + + + | Address | [address] | | | [place] [address] | + + + | Home Phone | | + + + | Preferred Language | Unknown | + + + | Marital Status | | + + + | Cheondoism Affiliation | 1027 | + + + | Race | Unknown | + + + | Ethnic Group | Unknown | + + + Author + + + | Author | [facility] | | | and [place] | + + + | Organization | [facility] | | | [...] | [place] | | | | | [place] | | | | | [address] | | + + + + + Care Team Providers + +------+ + | Care Marine Fitter Name | Role | Phone | + [...] Description | +--------+--------+ + + + | 10/26/ | Refill | [facility] [place] | Agus Steward, | Medication Refill | | 2015 | | ORTHOPEDIC SURGERY | [address] [facility] | | | | | [address] [facility] | [place], [place] | | | | | [place], [place] | [address] | | | | | [address] | | | | | | [phone] | | | +--------+--------+ + + + [...]
--- OUTSIDE RECORDS SUMMARY | ~2019-09-25 | XMS | Encounter Summary ---
Demographics + + + | Address | [address] | | | [place] [address] | + + + | Home Phone | | + + + | Preferred Language | Unknown | + + + | Marital Status | | + + + | Anabaptist Affiliation | 1027 | + + + | Race | Unknown | + + + | Ethnic Group | Unknown | + + + Author + + + | Author | [facility] | | | and [place] | + + + | Organization | [facility] | | | [...] [place] | | | | | [address] | | + + + + + Care Team Providers + +------+ + | Care Quality Engineer Medical Device Name | Role | Phone | + [...] + + | 05/16/ | Office | [facility] | Ez Hernandez | Acute bronchitis | | 2019 | Visit | CARE [address] | MD Marlene [address] | with bronchospasm | | | | [place] | [place] | (Primary Dx); Acute | | | | [address] | [address] | non-recurrent | | | | [phone] | | frontal sinusitis | +--------+---------+ + [...] exposed to secondhand smoke. You may use xicx-kau-yfiqart medicine to control fever or pain, unless [...] loosen secretions in the nose and lungs. Moch-epd-ymjuprx cough, cold, and sore-throat medicines will not [...] be worsening. If this happens, contact your [facility] provider. If prescribed, finish all antibiotic [...] pain with breathi ng Date Last Reviewed: 01/25/201519998387-4986 [employer]. [address] [place] [address]. All righ ts reserved. This information is [...] sinuses drain fluids. You can use an fqhu-yzf-uriloiuxddzlswantuv,unless a similar medicine was prescribed to you. [...] decongestants. They can raise blood pressure. ) Hecm-zuz-ffdneqbskawhxzpwjjkjzphm help if allergies contributed to your sinusitis. [...] with of your vaccines. Date Last Reviewed: 03/15/201719995666-3830 [employer]. [address] [place] [address]. All righ ts reserved. This information is [...] + + + | [facility] | [address] | [place] | [phone] | | [facility] | | [address] | | | [facility] | | | | + + + + + documented in this encounter Visit Diagnoses + + | Diagnosis | + + | Acute bronchitis with bronchospasm - Primary Acute bronchitis | + + | Acute non-recurrent frontal sinusitis | + + documented in this encounter"
--- OUTSIDE RECORDS SUMMARY | ~2019-09-25 | XMS | Encounter Summary ---
Demographics + + + | Address | [address] | | | [place] [address] | + + + | Home Phone [...] [place] | | | | | [address] | | + + + + + Care Team Providers + +------+ + | Care Olive Pitter Name | Role | Phone | + +------+ + | Jhonny Jimenez MD | PCP | | + +------+ + Encounter Details +--------+ + + + + | Date | Type | Department | Care Team | Description | +--------+ + + + + | 09/03/ | Orders Only | [facility] [place] | Agus Steward, | Preop testing; | | 2015 | | ORTHOPEDIC SURGERY | [address] | Essential | | | | [address] [facility] | [place] | hypertension, | | | | [place] | [address] | hypertension with | | | | [address] | | unspecified goal; | | | | [phone] | | Primary | | | | | | osteoarthritis of | | | | | | right knee | +--------+ + + + + Social [...]
--- OUTSIDE RECORDS SUMMARY | ~2019-09-25 | XMS | Encounter Summary ---
Demographics + + + | Address | [address] | | | [place] [address] | + + + | Home Phone [...] [place] | | | | | [address] | | + + + + + Care Team Providers + +------+ + | Care Barber Apprentice Name | Role | Phone | + +------+ + PCP | Unavailable | + +------+ + Encounter Details +--------+ + + + + | Date | Type | Department | Care Team | Description | +--------+ + + + + | 06/24/ | Hospital | [facility] | | | | 1999 - | Encounter | MED CTR OP REHAB | | | | | | [address] [place] | | | | 08/04/ | | [place] [address] | | | | 1999 | | [phone] | | | +--------+ + + + [...]
--- OUTSIDE RECORDS SUMMARY | ~2019-09-25 | XMS | Encounter Summary ---
Demographics + + + | Address | [address] | | | [place] [address] | + + + | Home Phone | | + + + | Preferred Language | Unknown | + + + | Marital Status | | + + + | Taoism Affiliation | 1027 | + + + | Race | Unknown | + + + | Ethnic Group | Unknown | + + + Author + + + | Author | [facility] | | | and [place] | + + + | Organization | [facility] | | | [...] [place] | | | | | [address] | | + + + + + Care Team Providers + +------+ + | Care Research Hydrologist Name | Role | Phone | + +------+ + | Jhonny Jimenez MD | PCP | | + +------+ + Encounter Details +--------+ + + + + | Date | Type | Department | Care Team | Description | +--------+ + + + + | 03/16/ | Hospital | [facility] | Jhonny Jimenez MD | Chronic hepatitis C | | 2018 | Encounter | MED CTR ULTRASOUND | [address] [facility] | without hepatic coma | | | | [address] [place] | [place], [place] | (HCC) | | | | [facility], [place] | [address] | | | | | [address] | | | | | | [phone] | | | +--------+ + + + [...] + + +---------+ + + | | | | 0 | 09/20/19 | | | acetaminophen-codein | | | | 16 | 9 | | e (TYLENOL #3) | | | | | | | 300-30 mg per tablet | | | | [...] tablets by | 60 | 0 | 12/02/19 | | | HYDROcodone-acetamin | mouth every 8 hours | tablet | | 16 | 9 | | ophen (NORCO) 10-325 | as [...] tablet by | 60 | 0 | 12/02/19 | | | (ROXICODONE) 5 mg | mouth every 6 hours | tablet | | 16 | 9 | | tablet | as needed for [...] +--------+ + + + | US ABDOMEN COMPLETE | Routin | 03/16/2018 | Chronic hepatitis | Results for this | | | e | 8:39 AM | C without hepatic | procedure are in the | | | | PDT | coma (HCC) | results section. | + +--------+ + + + documented in this encounter Results US Abdomen Complete (03/16/2018 8:39 AM PDT) + + | Specimen | + + | | + + + + + | Narrative | Performed At | + + + | EXAM: US ABDOMEN COMPLETE dated 03/16/2018 8:03 AM HISTORY: | [facility] | | hepatitis c liver evaluation, r/o hepatocellular carcinoma | | | COMPARISON: Ultrasound dated 09/15/2014 FINDINGS: Liver: The | | | liver is normal in size contour and echogenicity. There is no | | | intrahepatic biliary ductal dilatation. There is no hepatomegaly. | | | Gallbladder and bile ducts: The gallbladder is not distended. No | | | cholelithiasis. No pericholecystic fluid. The sonographic | | | Calix's reportedly negative. The gallbladder wall measures 2 mm. | | | The common bile duct measures 5 mm. Pancreas: The pancreas | | | as visualized is unremarkable. Spleen:No splenomegaly. | | | Kidneys: The right kidney as visualized is unremarkable. There is no | | | hydronephrosis. The right kidney measures 12 cm longitudinally. | | | The left kidney as visualized is unremarkable. There is no | | | hydronephrosis. The left kidney measures 10 cm longitudinally. | | | Vascular: There is flow demonstrated in the sampled portions of the | | | inferior vena cava, hepatic veins, portal veins, and the splenic | | | vein. Portal venous flow is toward the liver.. The aorta measures | | | 2.7 cm and tapers distally to 1.8 cm. No visible ascites. | | | IMPRESSION - Unremarkable abdominal ultrasound. No ultrasound | | | identified focal liver lesions. Dictated and Signed by: Micah Dent | MD Silvio Electronically signed: 03/16/2018 12:50 PM | | + + + + + | Procedure Note | + + | Fidencio Bernal Results In - 03/16/2018 12:53 PM PDT EXAM: US ABDOMEN COMPLETE dated | | 03/16/2018 8:03 AMHISTORY: hepatitis c liver evaluation, r/o hepatocellular | | carcinomaCOMPARISON: Ultrasound dated 09/15/2014FINDINGS:Liver: The liver is normal in | | size contour and echogenicity. There is nointrahepatic biliary ductal dilatation. | | There is no hepatomegaly.Gallbladder and bile ducts: The gallbladder is not distended. | | Nocholelithiasis. No pericholecystic fluid. The sonographic Calix's | | reportedlynegative. The gallbladder wall measures 2 mm. The common bile duct measures | | 5mm. Pancreas: The pancreas as visualized is unremarkable.Spleen:No | | splenomegaly.Kidneys: The right kidney as visualized is unremarkable. There is | | nohydronephrosis. The right kidney measures 12 cm longitudinally. The left kidneyas | | visualized is unremarkable. There is no hydronephrosis. The left kidneymeasures 10 cm | | longitudinally.Vascular: There is flow demonstrated in the sampled portions of the | | inferiorvena cava, hepatic veins, portal veins, and the splenic vein. Portal venousflow | | is toward the liver.. The aorta measures 2.7 cm and tapers distally to 1.8cm.No | | visible ascites.IMPRESSION - Unremarkable abdominal ultrasound.No ultrasound identified | | focal liver lesions.Dictated and Signed by: Micah Anguiano MD Electronically signed: | | 03/16/2018 12:50 PM | | | |Spleen:No splenomegaly. | | | |Kidneys: The right kidney as visualized is unremarkable. There is no | |hydronephrosis. The right kidney measures 12 cm longitudinally. The left kidney | |as visualized is unremarkable. There is no hydronephrosis. The left kidney | |measures 10 cm longitudinally. | | | |Vascular: There is flow demonstrated in the sampled portions of the inferior | |vena cava, hepatic veins, portal veins, and the splenic vein. Portal venous | |flow is toward the liver.. The aorta measures 2.7 cm and tapers distally to 1.8 | |cm. | | | |No visible ascites. | | | |IMPRESSION - | | | |Unremarkable abdominal ultrasound. | | | |No ultrasound identified focal liver lesions. | | | |Dictated and Signed by: Micah Anguiano MD | | Electronically signed: 03/16/2018 12:50 PM | + + + +---------+ + [...]
--- OUTSIDE RECORDS SUMMARY | ~2019-09-25 | XMS | Encounter Summary ---
Demographics + + + | Address | [address] | | | [place] [address] | + + + | Home Phone | | + + + | Preferred Language | Unknown | + + + | Marital Status | | + + + | Worship Affiliation | 1027 | + + + | Race | Unknown | + + + | Ethnic Group | Unknown | + + + Author + + + | Author | [facility] | | | and [place] | + + + | Organization | [facility] | | | and [...] [place] | | | | | [address] | | + + + + + Care Team Providers + +------+ + | Care Geophysical Party Chief Name | Role | Phone | + [...] Description | +--------+---------+ + + + | 09/20/ | Office | [facility] | Agus Steward, | Postop check | | 2016 | Visit | ORTHOPEDIC SURGERY | [address] [place] [address] | (Primary Dx) | | | | [address] [place] [address] | [facility] | | | | | [place] | [address] | | | | | [address] | | | | | | [phone] | | | +--------+---------+ + + + [...] + + + + | Temperature | 36 C (96.8 F) | 09/21/2015 2:21 PM | | | | | PDT [...] encounter Progress Notes Agus Steward MD - 09/23/2015 10:00 AM PDTPatient returns follow up right TKA He ran out of pain meds yesterday On exam his wound looks good He is doing well with his range of motion The ghanshyam are removed and steri strips applied Continue PT Return in 3 weeks with xrays documented in this encounter Plan of Treatment Not on filedocumented as of this encounter Visit Diagnoses + + | Diagnosis | + + | Postop check - Primary Follow-up examination, following unspecified surgery | + + documented in this encounter"
--- OUTSIDE RECORDS SUMMARY | ~2019-09-25 | XMS | Encounter Summary ---
Demographics + + + | Address | [address] | | | [place] [address] | + + + | Home Phone | | + + + | Preferred Language | Unknown | + + + | Marital Status | | + + + | Rastafarian Affiliation | 1027 | + + + | Race | Unknown | + + + | Ethnic Group | Unknown | + + + Author + + + | Author | [facility] | | | and [place] | + + + | Organization | [facility] | | [...] [place] | | | | | [address] | | + + + + + Care Team Providers + +------+ + | Care Automatic Silk Screen Printer Name | Role | Phone | + [...] + + | 11/17/ | Office | [facility] | Agus Steward, | Postop check | | 2016 | Visit | ORTHOPEDIC SURGERY | [address] [place] [address] | (Primary Dx) | | | | [address] [place] [address] | [facility] | | | | | [place], [place] | [address] | | | | | [address] | | | | | | [phone] | | | +--------+---------+ + + + [...]
--- OUTSIDE RECORDS SUMMARY | ~2019-09-25 | XMS | Encounter Summary ---
Demographics + + + | Address | [address] | | | [place] [address] | + + + | Home Phone [...] [place] | | | | | [address] | | + + + + + Care Team Providers + +------+ + | Care Hot Plate Plywood Press Offbearer Name | Role | Phone | + +------+ + PCP | Unavailable | + +------+ + Encounter Details +--------+ + + + + | Date | Type | Department | Care Team | Description | +--------+ + + + + | 07/06/ | Hospital | [facility] | Jay Baker | | | 2006 | Encounter | MED CTR EMERGENCY | Abdirahman, MD [address] | | | | | [address] | [facility] | | | | | [place], [place] | [place] [address] | | | | | [address] | [phone] | | | | | [phone] | | | +--------+ + + + [...]
--- OUTSIDE RECORDS SUMMARY | ~2019-09-25 | XMS | Encounter Summary ---
Demographics + + + | Address | [address] | | | [place] [address] | + + + | Home Phone | | + + + | Preferred Language | Unknown | + + + | Marital Status | | + + + | Cheondoism Affiliation | 1027 | + + + | Race | Unknown | + + + | Ethnic Group | Unknown | + + + Author + + + | Author | [facility] | | | and [place] | + + + | Organization | [facility] | | [...] [place] | | | | | [address] | | + + + + + Care Team Providers + +------+ + | Care Machine Clothing Replacer Name | Role | Phone | + +------+ + | Jhonny Jimenez MD | PCP | | + +------+ + Encounter Details +--------+ + + + + | Date | Type | Department | Care Team | Description | +--------+ + + + + | 09/22/ | Hospital | [facility] | Agus Steward, | Left shoulder pain | | 2015 | Encounter | MED CTR SUSAN XRAY | MD [address] [facility] | | | | | [address] [place] | [place], [place] | | | | | [place], [place] | [address] | | | | | [address] | | | | | | [phone] | | | +--------+ + + + [...] ST. | [address] | [place] | [phone] | | [facility] | | [address] | | | - IMAGING | | | | + + + + + documented in this encounter Visit Diagnoses + + | Diagnosis | + + | Left shoulder pain Pain in joint, shoulder region | + + documented in this encounter"
--- OUTSIDE RECORDS SUMMARY | ~2019-09-25 | XMS | Encounter Summary ---
Demographics + + + | Address | [address] | | | [place] [address] | + + + | Home Phone | | + + + | Preferred Language | Unknown | + + + | Marital Status | | + + + | Muslim Affiliation | 1027 | + + + | Race | Unknown | + + + | Ethnic Group | Unknown | + + + Author + + + | Author | [facility] | | | and [place] | + + + | Organization | [facility] | | [...] [place] | | | | | [address] | | + + + + + Care Team Providers + +------+ + | Care Bottle Booth Attendant Name | Role | Phone | + +------+ + | Jhonny Jimenez MD | PCP | | + +------+ + Encounter Details +--------+ + + + + | Date | Type | Department | Care Team | Description | +--------+ + + + + | 09/14/ | Hospital | [facility] | [facility], | Chronic hepatitis C | | 2015 | Encounter | MED CTR LABORATORY | LADY Kin[address] | without hepatic coma | | | | [address] [place] | [place], [address] | (HCC) | | | | [place], [place] | [place], [place] | | | | | [address] | [address] | | | | | [phone] | | | +--------+ + + + [...] | + +--------+ + + + | [id number], | Routin | 09/14/2014 | Chronic hepatitis [...] | | | | | | determinedby [facility] | | | | | [...] [place] | | | | | | [address] | | | | + + + [...] [facility] | [address] | [place] [address] | [phone] | + + + + + Hepatitis [...] + + + | HCV Viral | [id number] (A)Comment: | NOTDET IU/mL | REFERENCE | [...] [place] | | | | | | [address] | | | | + + + [...] [address] | [place] [address] | [phone] | + + + + + Smooth [...] | | | | | [place] [address] | | | | + + + [...] [address] | [place] [address] | [phone] | + + + + + Protime [...] + | [address] | [address] | [place] | [phone] | | [facility] | | [address] | | | - LABORATORY | | [...] | | | | | [place] [address] | | | | + + + [...] [address] | [place] [address] | [phone] | + + + + + Iron [...] [address] | [place] | [phone] | | [facility] | | [address] | | | - LABORATORY | | [...] | | | | | [place] [address] | | | | + + + [...] [address] | [place] [address] | [phone] | + + + + + Hepatitis [...] | LAB [facility] | | | | [id number] or greater | | | | | [...] [place] | | | | | | [address] | | | | + + + [...] [address] | [place] [address] | [phone] | + + + + + Hepatitis [...] | | | | | [place] [address] | | | | + + + [...] [address] | [place] [address] | [phone] | + + + + + Hepatitis [...] | | | | | [place] [address] | | | | + + + + + + | Hepatitis A | Non ReactiveComment: | NR | REFERENCE | | | Ab IgM | Testing Performed: [facility], | | LAB [facility] | | | | [address] | | | | | | [place] [address] | | | | + + + [...] [place] | | | | | | [address] | | | | + + + [...] [address] | [place] [address] | [phone] | + + + + + Ferritin [...] [address] | [place] | [phone] | | [facility] | | [address] | | | - LABORATORY | | [...] | mL/min/1.73m2 | AIDA | | | TONGAN | RATE,ESTIMATED | | MEDICAL | | | | mL/min/1.52c5Uqpv than | | CENTER - | | [...] + | [facility] | [address] | [place] | [phone] | | [facility] | | [address] | | | - LABORATORY | | [...] [place] | | | | | | [address] | | | | + + + [...] [address] | [place] [address] | [phone] | + + + + + CBC [...] [address] | [place] | [phone] | | [facility] | | [address] | | | - LABORATORY | | [...] [address] | [place] [address] | [phone] | + + + + + Rfguw-[id number], Total (09/14/2014 11:07 AM PDT) + + [...] [place] | | | | | | [address] | | | | + + + + + + + + | Specimen | + + | Blood specimen | | (specimen) | + + + + + + + | Performing | Address | City/State/Zipcode | Phone Number | | Organization | | | | + + + + + | REFERENCE LAB [facility] | [address] | [place] [address] | [phone] | + + + + + Alpha [...] | | | | | | Performed: [facility] | | | | | | [facility] | | | | | | [place], [address], | | | | | | [place] [address] | | | | + + + [...] [address] | [place] [address] | [phone] | + + + + + Hepatitis [...] | | | | | | Performed: [facility] | | | | | | [address] | | | | | | [place], [place] | | | | | | [address] | | | | + + + [...] [address] | [place] [address] | [phone] | + + + + + documented in this encounter Visit Diagnoses + + | Diagnosis | + + | Chronic hepatitis C without hepatic coma (HCC) | + + documented in this encounter"
--- OUTSIDE RECORDS SUMMARY | ~2019-09-25 | XMS | Encounter Summary ---
Demographics + + + | Address | [address] | | | [place] [address] | + + + | Home Phone | | + + + | Preferred Language | Unknown | + + + | Marital Status | | + + + | Cheondoism Affiliation | 1027 | + + + | Race | Unknown | + + + | Ethnic Group | Unknown | + + + Author + + + | Author | [facility] | | | and [place] | + + + | Organization | [facility] | | | [...] [place] | | | | | [address] | | + + + + + Care Team Providers + +------+ + | Care Solution Consultant Name | Role | Phone | + +------+ + | Jhonny Jimenez MD | PCP | | + +------+ + Encounter Details +--------+ + + + + | Date | Type | Department | Care Team | Description | +--------+ + + + + | 09/15/ | Hospital | [facility] | [facility], | Chronic hepatitis C | | 2015 | Encounter | MED CTR ULTRASOUND | LADY Kin[address] | without hepatic coma | | | | [address] [place] | [address], [address] | (HCC) | | | | [place], [place] | [place], [place] | | | | | [address] | [address] | | | | | [phone] | | | | | | | [...] scale and Doppler images of the | [facility] | | abdomen. FINDINGS: The gallbladder is [...] + | [facility] | [address] | [place] | [phone] | | [facility] | | [address] | | | - IMAGING | | | | + + + + + documented in this encounter Visit Diagnoses + + | Diagnosis | + + | Chronic hepatitis C without hepatic coma (HCC) | + + documented in this encounter"
--- OUTSIDE RECORDS SUMMARY | ~2019-09-25 | XMS | Encounter Summary ---
Demographics + + + | Address | [address] | | | [place] [address] | + + + | Home Phone | | + + + | Preferred Language | Unknown | + + + | Marital Status | | + + + | Confucianist Affiliation | 1027 | + + + | Race | Unknown | + + + | Ethnic Group | Unknown | + + + Author + + + | Author | [facility] | | | and [place] | + + + | Organization | [facility] | | | and [...] [place] | | | | | [address] | | + + + + + Care Team Providers + +------+ + | Care Manager Business Development Hospice Name | Role | Phone | + +------+ + PCP | Unavailable | + +------+ + Encounter Details +--------+ + + + + | Date | Type | Department | Care Team | Description | +--------+ + + + + | 03/16/ | Hospital | [facility] | | | | 2000 | Encounter | MED CTR EMERGENCY | | | | | | CENTER [address] | | | | | | [place] | | | | | | [address] | | | | | | [phone] | | | +--------+ + + + [...]
--- OUTSIDE RECORDS SUMMARY | ~2019-09-25 | XMS | Encounter Summary ---
Demographics + + + | Address | [address] | | | [place] [address] | + + + | Home Phone | | + + + | Preferred Language | Unknown | + + + | Marital Status | | + + + | Uatsdin Affiliation | 1027 | + + + | Race | Unknown | + + + | Ethnic Group | Unknown | + + + Author + + + | Author | [facility] | | | and [place] | + + + | Organization | [facility] | | [...] [place] | | | | | [address] | | + + + + + Care Team Providers + +------+ + | Care Corporate Executive Chef Name | Role | Phone | + +------+ + PCP | Unavailable | + +------+ + Encounter Details +--------+ + + + + | Date | Type | Department | Care Team | Description | +--------+ + + + + | 07/06/ | Hospital | [facility] | Jay Baker | | | 2006 | Encounter | MED CTR EMERGENCY | Abdirahman, MD [address] | | | | | [place] [address] | [facility] | | | | | [place], [place] | [place] [address] | | | | | [address] | [phone] | | | | | [phone] | | | +--------+ + + + [...]
--- OUTSIDE RECORDS SUMMARY | ~2019-09-25 | XMS | Encounter Summary ---
Demographics + + + | Address | [address] | | | [place] [address] | + + + | Home Phone | | + + + | Preferred Language | Unknown | + + + | Marital Status | | + + + | Roman Catholic Affiliation | 1027 | + + + | Race | Unknown | + + + | Ethnic Group | Unknown | + + + Author + + + | Author | [facility] | | | and [place] | + + + | Organization | [facility] | | [...] [place] | | | | | [address] | | + + + + + Care Team Providers + +------+ + | Care Health Informatics Specialist Name | Role | Phone | [...] Closed | | Radiology | Diagnoses | [place], | [facility] | | | | | Left | Agus Wong MD | [address] | | | | | shoulder | [address] | [place], | | | | | pain | [place] | [place] | | | | | Procedures | [place], [place] | [address] | | | | | MRI Shoulder | [address] | Phone: | | | | | Left wo | Phone: | [phone] | | | | | Contrast | [phone] | Fax: | | | | | | Fax: | [phone] | | | | | | [phone] | | +--------+--------+ + + + + [...] | | | 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[place], | | | | | coma Old | [place], | [place] [address] | | | | | disruption | [place] [address] | Phone: | | | | | of anterior | Phone: | [phone] | | | | | cruciate | [phone] | Fax: | | | | | ligament | Fax: | [phone] | | | | | Unspecified | [phone] | | | | | | essential [...] + + | 09/17/ | Office | [facility] | Agus Steward, | Right knee pain | | 2015 | Visit | ORTHOPEDIC SURGERY | MD [address] [place] [address] | (Primary Dx); Left | | | | [address] [facility] [facility] | [place] | shoulder pain | | | | [place] | [address] | | | | | [address] | | | | | | [phone] | | | +--------+---------+ + + + [...] MD - 09/17/2014 12:47 PM PDT [facility] ORTHOPEDIC SURGERY [address] [place] [address] [id number] OFFICE NOTE AGUS STEWARD MD Patient: SATINDER MARTINEZ Admitting: MR #: [id number] LOC: PT TYPE: Adm Date: 09/17/2014 : 1960 TODAY'S DATE: 09/17/2014 PATIENT IDENTIFICATION: 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 [...] plane. Negative brenden, negative reverse brenden, negative Goree sign. He is tender over the coracoacromial arch. Acromioclavicular joint is nontender. He has 70 degrees of external rotation, internal rotation thumb to the mid thoracic spine. DIAGNOSTIC DATA: X-rays of his right knee show severe and advanced nbbs-si-obtz arthrosis . He has interference screws from a previous lwvy-sjrazc-vpxq patella autograft reconstruc tion. IMPRESSION: 1. Pbxc-vv-zwln severe and advanced degenerative arthritis of the [...] pot ential complications as well as the [facility] problems with knee replacement and future revi [...] 09/17/2014 12:47:34 Transcribed on 09/17/2014 13:28:59 by [facility]# [id number] Confirmation #: [id number] cc: ALLEGRA JIMENEZ MD doc umented in [...] CUFF TEAR. COMPARISON: Left shoulder x-ray | [facility] | | 09/22/2014 TECHNIQUE: Multiplanar, multisequence MRI images of the [facility] | | left shoulder were obtained without [...] + + | Performing | Address | City/[facility] | Phone Number | | Organization | | | | + + + + + | [facility] | [address] | [place] | [phone] | | [facility] | | [address] | | | - IMAGING | | [...] ACL repair with screw hardware and tunneling [facility] | | procedure. There is severe [...] [address] | [place] | [phone] | | [facility] | | [address] | | | - IMAGING | | [...]
--- OUTSIDE RECORDS SUMMARY | ~2019-09-25 | XMS | Encounter Summary ---
Demographics + + + | Address | [address] | | | [place] [address] | + + + | Home Phone | | + + + | Preferred Language | Unknown | + + + | Marital Status | | + + + | Baptism Affiliation | 1027 | + + + [...] [place] | | | | | [address] | | + + + + + Care Team Providers + +------+ + | Care Organ Tuner Name | Role | Phone | + +------+ + | Jhonny Jimenez MD | PCP | | + +------+ + Reason for Visit + + + | Reason | Comments | + + + | Appointment | | + + + Encounter Details +--------+ + + + + | Date | Type | Department | Care Team | Description | +--------+ + + + + | 09/23/ | Telephone | [facility] | [facility], | Appointment | | 2015 | | GASTROENTEROLOGY | LADY Kinney [address] | | | | | [address] [place] | [place], [place] | | | | | [address] [place], [place] | [place], [place] | | | | | [address] | [address] | | | | | [phone] | | | +--------+ + + + [...]
--- OUTSIDE RECORDS SUMMARY | ~2019-09-25 | XMS | Encounter Summary ---
Demographics + + + | Address | [address] | | | [place] [address] | + + + | Home Phone | | + + + | Preferred Language | Unknown | + + + | Marital Status | | + + + | Caodaism Affiliation | 1027 | + + + | Race | Unknown | + + + | Ethnic Group | Unknown | + + + Author + + + | Author | [facility] | | | and [place] | + + + | Organization | [facility] | | | and [...] [place] | | | | | [address] | | + + + + + Care Team Providers + +------+ + | Care Auto Damage Trainee Name | Role | Phone | + +------+ + PCP | Unavailable | + +------+ + Encounter Details +--------+ + + + + | Date | Type | Department | Care Team | Description | +--------+ + + + + | 07/02/ | Hospital | [facility] | | | | 2002 | Encounter | MED CTR LABORATORY | | | | | | [address] [place] | | | | | | [place] | | | | | | [address] | | | | | | [phone] | | | +--------+ + + + [...]
--- OUTSIDE RECORDS SUMMARY | ~2019-09-25 | XMS | Encounter Summary ---
Demographics + + + | Address | [address] | | | [place] [address] | + + + | Home Phone | | + + + | Preferred Language | Unknown | + + + | Marital Status | | + + + | Adventism Affiliation | 1027 | + + + | Race | Unknown | + + + | Ethnic Group | Unknown | + + + Author + + + | Author | [facility] | | | and [place] | + + + | Organization | [facility] | | [...] [place] | | | | | [address] | | + + + + + Care Team Providers + +------+ + | Care It Quality Assurance Analyst Name | Role | Phone | [...] + + | 07/22/ | Emergency | [facility] | Boom Ceja, | Medical clearance | | 2019 | | MED CTR EMERGENCY | [address] | for psychiatric | | | | CENTER [address] | [place] | admission/treatment | | | | [place] | [address] | (Primary Dx); | | | | [address] | | 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 | [address] | [place] | [phone] | | [facility] | | [address] | | | - LABORATORY | | [...] + | [facility] | [address] | [place] | [phone] | | [facility] | | [address] | | | - LABORATORY | | [...] [address] | [place] | [phone] | | [facility] | | [address] | | | - LABORATORY | | [...] + | [address] | [address] | [place] | [phone] | | [facility] | | [address] | | | - LABORATORY | | [...] [address] | [place] | [phone] | | [facility] | | [address] | | | - LABORATORY | | [...] not | 48 (L)Comment: | >=60 | [facility] | | | | GLOMERULAR FILTRATION | mL/min/1.73m2 | [facility] | | | [place] | RATE,ESTIMATED | | MEDICAL | | | | mL/min/1.83w8Imdw than | | CENTER - | | [...] + | [facility] | [address] | [place] | [phone] | | [facility] | | [address] | | | - LABORATORY | | [...] [address] | [place] | [phone] | | [facility] | | [address] | | | - LABORATORY | | [...]
--- OUTSIDE RECORDS SUMMARY | ~2019-09-25 | XMS | Encounter Summary ---
Demographics + + + | Address | [address] | | | [place] [address] | + + + | Home Phone | | + + + | Preferred Language | Unknown | + + + | Marital Status | | + + + | Quaker Affiliation | 1027 | + + + | Race | Unknown | + + + | Ethnic Group | Unknown | + + + Author + + + | Author | [facility] | | | and [place] | + + + | Organization | [facility] | | | [...] [place] | | | | | [address] | | + + + + + Care Team Providers + +------+ + | Care Patch Finisher Name | Role | Phone | + [...] 2015 | | ORTHOPEDIC SURGERY | [address] | | | | | [address] [facility] | [place], [place] | | | | | [place], [place] | [address] | | | | | [address] | | | | | | [phone] | | | +--------+--------+ + + + [...]
--- OUTSIDE RECORDS SUMMARY | ~2019-09-25 | XMS | Encounter Summary ---
Demographics + + + | Address | [address] | | | [place] [address] | + + + | Home Phone | | + + + | Preferred Language | Unknown | + + + | Marital Status | | + + + | Bahai Affiliation | 1027 | + + + | Race | Unknown | + + + | Ethnic Group | Unknown | + + + Author + + + | Author | [facility] | | | and [place] | + + + | Organization | [facility] | [...] [place] | | | | | [address] | | + + + + + Care Team Providers + +------+ + | Care Radiation Physicist Name | Role | Phone | [...] | | | | | | | [place] | | | | | | | COLONOSCOPY | | | | | | | FLX DX | | | | | | | W/COLLJ SPEC | | | | | | | WHEN PFRMD | | | | | | | [place] | | | | | | | COLONOSCOPY | | | | | | | W/BIOPSY | | | | | | | SINGLE/MULTI | | | | | | | PLE [place] | | | | | | | [...] + + | 10/02/ | Surgery | [facility] | Bill Ferraro MD | COLONOSCOPY | | 2015 | | MED CTR MP INTRA OP | [address] | | | | | [address] | [place], [place] | | | | | [place] | [address] | | | | | [address] | [phone] | | | | | [phone] | | | +--------+---------+ + + + [...] the physician who did your procedure at [phone] if you have any questions or experience any of the following: ? Increasing abdominal pain, nausea, or vomiting. ? Chills and fever over 101F. ? New abdominal swelling or bloating. ? Signs of rectal bleeding (black or red stool). If you cannot get a hold of your physician, then call the [facility] [phone] . If necessary, report to the Emergency Department at [facility]. Quit smoking: If you smoke or have [...] better the chance of preventing its spread. [phone] [employer]. [address] [place] [address], [place] [address]. All righ ts reserved. This information is [...] 10/02/2014 8:30 | PROVATION | | AMMRN: [id number] #: [id number] of : 1960Admit | | | Type: AmbulatoryAge: 54[facility]Gender: MaleNote Status: | | | FinalizedAttending MD: Bill Ferraro, [facility]: | | | ColonoscopyIndications: Screening for colorectal [...] the nurse | | | and the registered veterinary technician in the pre-procedure area in the [...] | | | AMScope Out: 8:56:21 AM [facility], [address] | | | [place] [address] | | | - Regular diet. | [...] |Scope Out: 8:56:21 AM | | | [facility], [address] [place], [place] | | | [address] | | + + ---+ + +---------+ [...] POLYP SPECIMEN SOURCE: A. SIGMOID POLYP | [place] [facility] | | CLINICAL HISTORY: V76.51 (screening [...] Tubular adenoma (one fragment). | | | JVR:[facility]:C2NR GROSS DESCRIPTION: The specimen is labeled "Javon, | | | Lebron Oconnell" and designated "sigmoid polyp" on the requisition. Received | | | in formalin are two castro colored tissue fragments, 0.1-0.3 cm, all | | | into (A1). yt:JVR:[facility] PERFORMING LABORATORY: Tissue processing | | | and slide preparation were performed by [facility], [address] | | [address], [address], [place] [address] (Inside Tester: Jonathan | | | Parker Horton CLIA#: [id number]). Professional interpretation was | | | performed by [facility], [facility] | | | Branch, [address], [place] [address] (Inside Tester: | | | Jonathan Horton M.D.; CLIA#: [id number]). Diagnostician: Jonathan | | | Luis E [...]
--- OUTSIDE RECORDS SUMMARY | ~2019-09-25 | XMS | Encounter Summary ---
Demographics + + + | Address | [address] | | | [place] [address] | + + + | Home Phone | | + + + | Preferred Language | Unknown | + + + | Marital Status | | + + + | Yazidism Affiliation | 1027 | + + + | Race | Unknown | + + + | Ethnic Group | Unknown | + + + Author + + + | Author | [facility] | | | and [place] | + + + | Organization | [facility] | | [...] [place] | | | | | [address] | | + + + + + Care Team Providers + +------+ + | Care Ecological Modeler Name | Role | Phone | + [...] + + | 09/23/ | Telephone | [facility] | [facility], | Appointment | | 2015 | | GASTROENTEROLOGY | [address] | | | | | [address] [place] | [place], [place] | | | | | [address] [place], [place] | [place], [place] | | | | | [address] | [address] | | | | | [phone] | | | +--------+ + + + [...]
--- OUTSIDE RECORDS SUMMARY | ~2019-09-25 | XMS | Encounter Summary ---
Demographics + + + | Address | [address] | | | [place] [address] | + + + | Home Phone [...] [place] | | | | | [address] | | + + + + + Care Team Providers + +------+ + | Care Wellhead Pumper Name | Role | Phone | + +------+ + PCP | Unavailable | + +------+ + Encounter Details +--------+ + + + + | Date | Type | Department | Care Team | Description | +--------+ + + + + | 12/02/ | Hospital | [facility] | | | | 2002 | Encounter | MED CTR LABORATORY | | | | | | [address] | | | | | | [place] | | | | | | [address] | | | | | | [phone] | | | +--------+ + + + [...]
--- OUTSIDE RECORDS SUMMARY | ~2019-09-25 | XMS | Encounter Summary ---
Demographics + + + | Address | [address] | | | [place] [address] | + + + | Home Phone [...] [place] | | | | | [address] | | + + + + + Care Team Providers + +------+ + | Care Coffee Attendant Name | Role | Phone | [...] | | | | [address] | [place], [place] | | | | | [address] [place] | [address] | | | | | [address] | [phone] | | | | | [phone] | | | +--------+ + + + [...] to medical records to be scanned into [facility]. Copy of pathology letter has been mailed to patient's listed PCP with pathology report if o [facility] 10/21/14. Patient had follow up with Gregoria Hawkins 10/15/14. Recall entered. Recommend 5 year follow up colonoscopy for polyp surveillance. documented in this en counter Plan of Treatment Not on filedocumented as of this encounter Visit Diagnoses Not on filedocumented in this encounter"
--- OUTSIDE RECORDS SUMMARY | ~2019-09-25 | XMS | Encounter Summary ---
Demographics + + + | Address | [address] | | | [place] [address] | + + + | Home Phone | | + + + | Preferred Language | Unknown | + + + | Marital Status | | + + + | Anabaptism Affiliation | 1027 | + + + | Race | Unknown | + + + | Ethnic Group | Unknown | + + + Author + + + | Author | [facility] | | | and [place] | + + + | Organization | [facility] | | [...] [place] | | | | | [address] | | + + + + + Care Team Providers + +------+ + | Care Retail Cosmetics Sales Beauty Advisor Name | Role | Phone | + +------+ + | Jhonny Jimenez MD | PCP | | + +------+ + Reason for Visit + + + | Reason | Comments | + + + | Follow-up | colonoscopy | + + + Evaluate & Treat (Routine) +--------+--------+ + + + + | Status | Reason | Specialty | Diagnoses / | Referred By | Referred To | | | | | Procedures | Contact | Contact | +--------+--------+ + + + + | Closed | | Gastroenterol | Diagnoses | Jimenez, | Shruthi, | | | | ogy | Unspecified | Jhonny Kiran MD | Gregoria, | | | | | viral | [address] | ANALYTICAL STATISTICIAN [address] | | | | | hepatitis C | [address] | [place], [place] | | | | | without | [place], | [address] [place] | | | | | hepatic coma | [place] [address] | [place], [place] | | | | | Old | Phone: | [address] Phone: | | | | | disruption | [phone] | [phone] | | | | | of anterior | Fax: | Fax: | | | | | cruciate | [phone] | [phone] | | | | | ligament | [...] Description | +--------+---------+ + + + | 10/15/ | Office | [facility] | [facility], | Chronic hepatitis C | | 2015 | Visit | GASTROENTEROLOGY | [address] [address] | without hepatic coma | | | | [address] [place] | [place], [place] [address] | (HCC) (Primary Dx); | | | | [address] [place], [place] | [place] | Liver fibrosis; | | | | [address] | [address] | Left ear pain; | | | | [phone] | | Abnormal ultrasound | | | | | | of kidney; Tubular | | | | | | adenoma of colon | +--------+---------+ + + + Social History [...] + + + | Blood Pressure | 130/90 | 10/15/2014 8:28 AM | | | | | PDT | | + + + + + | Pulse | 63 | 10/15/2014 8:28 AM | | | | | PDT | | + + + + + | Temperature | 36.6 C (97.8 F) | 10/15/2014 8:28 AM | | | | | PDT | | + + + + + | Respiratory Rate | 16 | 10/15/2014 8:28 AM | | | | | PDT | | + + + + + | Oxygen Saturation | - | - | | + + + + + | Inhaled Oxygen | - | - | | | Concentration | | | | + + + + + | Weight | 107.5 kg (237 lb) | 10/15/2014 8:28 AM | | | | | PDT | | + + + + + | Height | - | - | | + + + + + | Body Mass Index | 32.14 | 09/17/2014 10:32 AM | | | | | PDT | | + + + + + documented in this encounter Progress Notes Gregoria Hawkins ARNP - 10/15/2014 8:51 AM PDTFormatting of this note might be differe nt from the original. Lebron Alejandro is a 54 y.o. male here for followup HCV labs, ultrasound, and colonoscopy. History of present illness: Patient here for follow-up labs ultrasound and colonoscopy. Colonoscopy was done for routine colon cancer screening. Patient denies any changes in bow el habits or rectal bleeding since procedure. Denies ascites, jaundice, hematemesis, peripheral edema, sleep changes, or confusion. Patient has not used marijuana, alcohol, or illegal drugs in over 1-1/2-2 years. Patient's main complaint revolves around left ear. He states that he was using air plugs e very night due to White snoring. He states that he developed an infection in his left ear. Has been using eardrops due to infection. He then used wax removal drops in left ear. He follow this up with his antibiotic eardrops. He then noted burning in left ear for approxim ately 1 hour. He now states that he can feel air, out of his left ear when he tries to "pop his ears". No Known Allergies Past Medical History Diagnosis Date Essential hypertension Hepatitis C Substance abuse Past Surgical History Procedure Laterality Date Knee surgery Right 1978, 1995 Hip surgery Right 2000 Shoulder surgery Right 1976 Leg surgery Right Tonsillectomy and adenoidectomy Colonoscopy N/A 10/02/2014 Procedure: COLONOSCOPY; Surgeon: Bill Ferraro MD; Location: [facility] MEDICAL PROCEDURE UNI T Family History Problem Relation Age of Onset Diabetes Father Heart attack Father 55 High blood pressure Father Hepatitis C Father Alcohol abuse COPD Father History Social History Marital Status: Spouse [...] any fevers, chills, or unintentional weight loss. Respiratory:Denies shortness of breath, cough or wheezing. Gastrointestinal:Negative except as stated above. Cardiovascular:Denies chest pain, palpitations, or swelling to legs Physical exam: General: Alert and oriented, NAD Eyes: Sclera clear Mouth: Mucous membranes moist Ear: Left ear: Erythema and pus noted around tympanic membrane. No exudate draining out of ear canal. Question perforation of tympanic membrane. Extremities: No clubbing or edema Skin: Warm, dry, intact. No rashes noted Neuro: Cranial nerves 2-12 grossly intact. Psych: Appropriate mood and affect. No visits with results within 1 Month(s) from this visit. Latest known visit with results is: Hospital Outpatient Visit on 09/14/2014 Component Date Value Ref Range Status Fibrosis Score 09/14/2014 0.29* Final FIBROSURE STAGE 09/14/2014 See Comments* Final F1, Portal fibrosis Necroinflammat Activity Score 09/14/2014 0.33* Final Necroinflammat Activity Grade 09/14/2014 See Comments* Final A1, Minimal activity Alpha 2-Macroglobulins, Qn 09/14/2014 257 Final Haptoglobin 09/14/2014 112 Final Apolipo protein A1 09/14/2014 172 Final BILIRUBIN, TOTAL 09/14/2014 0.7 Final GGT 09/14/2014 18 Final ALT (SGPT) (REF) 09/14/2014 57* Final Interpretation 09/14/2014 See Comments Final Quantitative results of 6 biochemical tests are analyzed using a computational algorithm to provide a quantitative surrogate marker (0.0-1.0) for liver fibrosis (METAVIR F0-F4) and for necroinflammatory activity (METAVIR A0-A3). Fibrosis Scoring: <0.21 = Stage F0 - No fibrosis 0.21 - 0.27 = Stage F0 - F1 0.27 - 0.31 = Stage F1 - Portal fibrosis 0.31 - 0.48 = Stage F1 - F2 0.48 - 0.58 = Stage F2 - Bridging fibrosis with few septa 0.58 - 0.72 = Stage F3 - Bridging fibrosis with many septa 0.72 - 0.74 = Stage F3 - F4 >0.74 = Stage F4 - Cirrhosis Necroinflamm Activity Scoring: <0.17 = Grade A0 - No Activity 0.17 - 0.29 = Grade A0 - A1 0.29 - 0.36 = Grade A1 - Minimal activity 0.36 - 0.52 = Grade A1 - A2 0.52 - 0.60 = Grade A2 - Moderate activity 0.60 - 0.62 = Grade A2 - A3 >0.62 = Grade A3 - Severe activity Limitations: 09/14/2014 See Comments Final The negative predictive value of a Fibrotest score <0.31 (absence of clinically significant fibrosis) was 85% when compared to liver biopsy in 1,270 HCV infected patients with a 38% prevalence of significant liver fibrosis (F2, 3 or 4). The positive predictive value of a Fibro- test score >0.48 (F2, 3, 4) was 61% in that same patient cohort. HCV FibroSURE is not recommended in patients with Gilbert Disease, acute hemolysis (e.g. HCV ribavirin therapy mediated hemolysis) acute hepa- titis of the liver, extra-hepatic cholestasis, transplant patients, and/or renal insufficiency patients. Any of these clinical situations may lead to inaccurate quantitative predictions of fibrosis and necroinflammatory activity in the liver. Comment 09/14/2014 See Comments Final This test was developed and its performance characteristics determined by [facility]. It has not been cleared or approved by the Food and Drug Administration. The FDA has determined that such clearance or approval is not necessary. For questions regarding this report please contact customer service at . Testing Performed: [facility], [address] [place] [address], [place] [address] AFP Tumor Marker 09/14/2014 1.7 0.6 - 6.6 ng/mL Final Reference range applies to males and non females. Testing Performed: [facility], [address], [place] [address] A1 ANTITRYPSIN SER 09/14/2014 130 100 - 200 mg/dL Final Testing Performed: [facility], [address], [place] [address] SANCHO Screen, Qual 09/14/2014 Negative NEG Final Interpretation-SANCHO 09/14/2014 0.5 <1.0 U Final WBC 09/14/2014 5.8 4.0-11.0 K/uL Final RBC 09/14/2014 5.30 4.30-5.70 M/uL Final Hgb 09/14/2014 16.4 13.5-18.0 g/dL Final Hct 09/14/2014 50.3 40.0-51.0 % Final MCV 09/14/2014 94.9 83.0-101.0 fL Final MCH 09/14/2014 31.0 28.0-35.0 pg Final MCHC 09/14/2014 32.7 32.0-36.0 g/dL Final RDW 09/14/2014 14.0 <15.0 % Final Platelet Count 09/14/2014 160 140-440 K/uL Final MPV 09/14/2014 9.1 Final % Neutrophils 09/14/2014 46.0 45.0-82.0 % Final % Lymphocytes 09/14/2014 40.3 20.0-45.0 % Final % Monocytes 09/14/2014 11.2 4.0-12.0 % Final % Eosinophils 09/14/2014 2.2 0.0-5.0 % Final % Basophils 09/14/2014 0.3 0.0-1.0 % Final Absolute Neutrophils 09/14/2014 2.70 1.80-8.50 K/uL Final Absolute Lymphocytes 09/14/2014 2.30 0.60-3.20 K/uL Final Absolute Monocytes 09/14/2014 0.70 0.00-1.00 K/uL Final Absolute Eosinophils 09/14/2014 0.10 0.00-0.40 K/uL Final Absolute Basophils 09/14/2014 0.00 0.00-0.10 K/uL Final CERULOPLASMIN 09/14/2014 23 7 - 220 mg/dL Final Testing Performed: [facility], [address], [place] [address] NA 09/14/2014 135* 136-149 mmol/L Final K 09/14/2014 4.5 3.5-5.1 mmol/L Final CL 09/14/2014 105 98-109 mmol/L Final CO2 09/14/2014 29 24-31 mmol/L Final ANION GAP 09/14/2014 1* 3-16 mmol/L Final GLUCOSE 09/14/2014 91 70-109 mg/dL Final BUN 09/14/2014 15 7-18 mg/dL Final Creatinine, Serum/Plasma 09/14/2014 0.91 0.60-1.30 mg/dL Final eGFR if not 09/14/2014 >60 >=60 mL/min/1.73m2 Final GLOMERULAR FILTRATION RATE,ESTIMATED mL/min/1.73m2 Less than 60 Chronic kidney disease,if found over a 3-month period. Less than 15 Kidney failure For Americans,multiply the calculated GFR by 1.21. CALCIUM 09/14/2014 9.2 8.3-10.5 mg/dL Final ALBUMIN 09/14/2014 4.1 3.2-5.0 g/dL Final BILIRUBIN TOTAL 09/14/2014 1.0 0.1-1.5 mg/dL Final Total protein 09/14/2014 6.9 6.0-7.8 g/dL Final AST 09/14/2014 34 10-42 U/L Final ALT 09/14/2014 55* 6-45 U/L Final ALK PHOS 09/14/2014 69 40-110 U/L Final GLOBULIN 09/14/2014 2.8 Final Albumin/Globulin ratio 09/14/2014 1.5 Final BUN/CREA 09/14/2014 16.5 Final FERRITIN 09/14/2014 184 24-366 ng/mL Final Hepatitis A Ab Total 09/14/2014 Reactive* NR Final Testing Performed: [address], [place] [address] Hepatitis A Ab IgM 09/14/2014 Non Reactive NR Final Testing Performed: [address], [place] [address] Hepatitis Interpretation: 09/14/2014 See Comments Final Consistent with remote past HAV infection. Testing Performed: [address], [place] [address] Hepatitis B Core Ab IgM 09/14/2014 Non Reactive NR Final Testing Performed: [address], [place] [address] Hepatitis B Surface Ab 09/14/2014 51.8 Final <10.0 Non Immune 10.0 or greater Indicates vaccine response or response to HBV infection. Samples with a calculated value of 10 mIU/mL or greater are considered reactive (protective) in accordance with the CDC guidelines. Testing Performed: [address], [place] [address] Hepatitis B Surface Ag 09/14/2014 Non Reactive NR Final Testing Performed: [address], [place] [address] IRON 09/14/2014 171* 50-160 ug/dL Final TRANSFERRIN 09/14/2014 265.0 240.0-480.0 mg/dL Final TIBC 09/14/2014 371 Final % SATURATION 09/14/2014 46.1 Final MITOCHONDRIAL AB 09/14/2014 See Comments NEG Final Negative Reference range: <1:20 Testing Performed: [address], [place] [address] PROTIME 09/14/2014 13.5 11.3-13.9 seconds Final INR 09/14/2014 1.03 0.90-1.10 Final Usual Oral Anticoagulation Range: 2.0 - 3.0 High Level Oral Anticoagulation Range: 2.5 - 3.5 Smooth Muscle Ab 09/14/2014 See Comments NEG Final Negative Reference Range: <1:40 Testing Performed: [address], [place] [address] HCV Viral Load, log10 09/14/2014 6.8* NOTDET Log IU/mL Final HCV Viral Load 09/14/2014 [id number]* NOTDET IU/mL Final Reportable range HCV RNA 1.2 to 8.0 Log IU/mL (15 to 100,000,000 IU/mL). This assay was performed using the FDA approved Ave MARILYNN AmpliPrep/MARILYNN TaqMan HCV Test, v2.0. The MARILYNN AmpliPrep/MARILYNN TaqMan HCV Test, v2.0 is not intended for use as a screening test for the presence of HCV in blood or blood products. Testing Performed: [address], [place] [address] HCV Genotype by PCR 09/14/2014 See Comments Final Type 1a HCV genotype was determined by RT-PCR and ferrocene labelled probe. This assay detects and differentiates the 6 major HCV genotypes and their most common subtypes (1a, 1b, 2a/c, 2b, 3, 4, 5, 6). This test was developed and its performance characteristics determined by [facility] Division of Laboratory Medicine. It has not been approved or cleared by the U.S. Food and Drug Administration. This test should not be regarded as investigational or for research use. Testing Performed: [address], [place] [address] Abdominal ultrasound 08/17/2014: IMPRESSION - No focal abnormalities of liver. Echogenic right kidney suggestive of medical renal disease. Colonoscopy 10/02/2014: Impression: - One 3 mm polyp in the sigmoid colon. Resected and retrieved. - Non-bleeding internal hemorrhoids Pathology 10/02/2014: Sigmoid polyp, biopsy: -Tubular adenoma Assessment 1. Chronic hepatitis C without hepatic coma (HCC) Genotype 1A 2. Liver fibrosis (HCC) F1 3. Left ear pain Otitis external vs otitis media vs perforated tympanic membrane 4. Abnormal ultrasound of kidney Abnormality noticed on right kidney. Plan: HCV: Will send prescription for hepatitis C treatment. Prescription for Harvoni 90/400 mg once daily for 8 weeks is sent to specialty pharmacy. Due to viral load being less than 6 million, patient is eligible for 8 weeks of hepatitis C treatment. Encouraged to continue with alcohol, marijuana, and illegal drug cessation. Patient to have abnormality of right kidney seen on ultrasound followed up with PCP. Ear pain: Recommend patient follow up with urgent care regarding left ear. Abnormal ultrasound right kidney: Follow-up with PCP regarding abnormality noted on ultraso und. Tubular adenoma colon polyp: Repeat colonoscopy in 5 years for screening purposes. Patient is to call with any question or concerns. Any fevers, chills, chest pain, SOB or o ther serious symptoms patient is to call the office or go to ER Cc: Jhonny Jimenez This note was dictated using voice recognition software. Please contact me if there are an y questions regarding its content. documented in t his encounter Plan of Treatment Not on filedocumented as of this encounter Visit Diagnoses + + | Diagnosis | + + | Chronic hepatitis C without hepatic coma (HCC) - Primary | + + | Liver fibrosis Cirrhosis of liver without mention of alcohol | + + | Left ear pain Otalgia, unspecified | + + | Abnormal ultrasound of kidney Nonspecific (abnormal) findings on radiological and | | other examination of genitourinary organs | + + | Tubular adenoma of colon Benign neoplasm of colon | + + documented in this encounter
--- OUTSIDE RECORDS SUMMARY | ~2019-09-25 | XMS | Encounter Summary ---
Demographics + + + | Address | [address] | | | [place] [address] | + + + | Home Phone | | + + + | Preferred Language | Unknown | + + + | Marital Status | | + + + | Hoahaoism Affiliation | 1027 | + + + [...] [place] | | | | | [address] | | + + + + + Care Team Providers + +------+ + | Care Stretch Machine Operator Name | Role | Phone [...] | | | | | | | [place] | | | | | | | COLONOSCOPY | | | | | | | FLX DX | | | | | | | W/COLLJ SPEC | | | | | | | WHEN PFRMD | | | | | | | [place] | | | | | | | COLONOSCOPY | | | | | | | W/BIOPSY | | | | | | | SINGLE/MULTI | | | | | | | PLE [place] | | | | | | | [...] | +--------+ + + + + | 10/02/ | Hospital | [facility] | Bill Ferraro MD | Colon cancer | | 2015 | Encounter | MED CTR [facility]TRA OP | [address] | screening (Primary | | | | [address] | [place], [place] | Dx) | | | | [place], [place] | [address] | | | | | [address] | [phone] | | | | | [phone] | | | +--------+ + + + [...] the physician who did your procedure at [phone] if you have any questions or experience any of the following: ? Increasing abdominal pain, nausea, or vomiting. ? Chills and fever over 101F. ? New abdominal swelling or bloating. ? Signs of rectal bleeding (black or red stool). If you cannot get a hold of your physician, then call the [facility] [phone] . If necessary, report to the Emergency Department at [facility]. Quit smoking: If you smoke or [...] better the chance of preventing its spread. [phone] [employer]. [address] [place] [address]. All righ ts reserved. This information is [...] 10/02/2014 8:30 | [employer]OVATION | | AMMRN: [id number] #: [id number] of : 1960Admit | | | Type: AmbulatoryAge: 54Room: [place] [address]Gender: MaleNote Status: | | | FinalizedAttending MD: Bill Ferraro, MDProcedure: | | | ColonoscopyIndications: Screening for colorectal malignant | | | neoplasmProviders: Bill Ferraro MD, Ashwini Mueller | | | ILANA Osborne, Aisha Holly, | | | TechnicianReferring MD: Jhonny Jimenez MD (Referring | | | MD)Medicines: Midazolam 4 mg IV, Meperidine 100 mg [...] the nurse | | | and the patient services technician in the pre-procedure area in the [...] | | | AMScope Out: 8:56:21 AM [facility], [address] | | [place] [address] | | | - Regular diet. | [...] |Scope Out: 8:56:21 AM | | | [facility], [address] [place], [place] | | | [address] | | + + ---+ + +---------+ [...] POLYP SPECIMEN SOURCE: A. SIGMOID POLYP | [facility] | | CLINICAL HISTORY: V76.51 (screening [...] center:C2NR GROSS DESCRIPTION: The specimen is labeled "Alejandro, | | | Lebron Anish" and designated "sigmoid polyp" on the requisition. Received | | | in formalin are two castro colored tissue fragments, 0.1-0.3 cm, all | | | into (A1). yt:JVR:[facility] PERFORMING LABORATORY: Tissue processing | | | and slide preparation were performed by [facility], [facility][note 3] W. | | | [facility], [address], [place] [address] (Rehabilitation Psychologist: Jonathan | | | Parker Horton CLIA#: [id number]). Professional interpretation was | | | performed by [facility], [facility] | | | Branch, [address] [facility], [place] [address] (Rehabilitation Psychologist: | | | Jonathan Hotron M.D.; CLIA#: [id number]). Diagnostician: Jonathan | | | Luis E [...] + | Diagnosis | + + | Colon cancer screening - Primary Special screening for malignant neoplasms, colon | + + documented in this [...]
--- OUTSIDE RECORDS SUMMARY | ~2019-09-25 | XMS | Encounter Summary ---
Demographics + + + | Address | [address] | | | [place] [address] | + + + | Home Phone | | + + + | Preferred Language | Unknown | + + + | Marital Status | | + + + | Islam Affiliation | 1027 | + + + [...] [place] | | | | | [address] | | + + + + + Care Team Providers + +------+ + | Care Hair Salon Manager Name | Role | Phone | + +------+ + | Jhonny Jimenez MD | PCP | | + +------+ + Encounter Details +--------+ + + + + | Date | Type | Department | Care Team | Description | +--------+ + + + + | 10/13/ | Hospital | [facility] | Agus Steward, | Status post total | | 2016 | Encounter | [facility] | MD [address] | right knee | | | | [address] [place] | [place], [place] | replacement | | | | [place], [place] | [address] | | | | | [address] | | | | | | [phone] | | | +--------+ + + + [...] | | Take 1-2 tablets by | 100 | 0 | 10/14/19 | | | HYDROcodone-acetamin | mouth EVERY 4 TO 6 | tablet | | 16 | 6 | | ophen (NORCO) 10-325 | HOURS NEEDED for | | | | | | mg per tablet | Pain. | | | | | + [...] tablet by | 60 | 0 | 10/14/19 | | | (ROXICODONE) 5 mg | [...] + + + | XR KNEE RIGHT 1 - 2 | Routin | 10/14/2015 | Status post total | Results for this | | VW | e | 12:57 PM | right knee | procedure are in the | | | | PDT | replacement | results section. | + +--------+ + + + documented in this encounter Results XR Knee Right 1 - 2 Vw (10/14/2015 12:57 PM PDT) + + | Specimen | + + | | + + + + + | Narrative | Performed At | + + + | TWO VIEWS RIGHT KNEE 10/14/2015 12:57 PM CLINICAL HISTORY: Post op | TINGE | | Right Total Knee Arthroplasty DOS: 2015 COMPARISON: KNEE | [facility] | | RADIOGRAPHS SEPTEMBER 17, 2014 [...] + | Fidencio Bernal Results In - 10/14/2015 3:42 PM PDT [...] + | [address] | [address] | [place] | [phone] | | [facility] | | [address] | | | - IMAGING | | | | + + + + + documented in this encounter Visit Diagnoses + + | Diagnosis | + + | Status post total right knee replacement | + + documented in this encounter"
--- OUTSIDE RECORDS SUMMARY | ~2019-09-25 | XMS | Encounter Summary ---
Demographics + + + | Address | [address] | | | [place] [address] | + + + | Home Phone | | + + + | Preferred Language | Unknown | + + + | Marital Status | | + + + | Cheondoism Affiliation | 1027 | + + + | Race | Unknown | + + + | Ethnic Group | Unknown | + + + Author + + + | Author | [facility] | | | and [place] | + + + | Organization | [facility] | | | [...] [place] | | | | | [address] | | + + + + + Care Team Providers + +------+ + | Care Technology Coordinator Name | Role | Phone | + [...] + + | 10/13/ | Office | [facility] | Agus Steward, | Status post total | | 2016 | Visit | ORTHOPEDIC SURGERY | [address] | right knee | | | | [address] | [place], [place] | replacement (Primary | | | | [place], [place] | [address] | Dx) | | | | [address] | | | | | | [phone] | | | +--------+---------+ + + + [...] as of this encounter Progress Notes Agus Setward MD - 10/15/2015 9:27 AM PDTPatient returns [...] Knee Arthroplasty DOS: 2015 COMPARISON: KNEE | [facility] | | RADIOGRAPHS SEPTEMBER 17, 2014 FINDINGS: [...] [address] | [place] | [phone] | | [facility] | | [address] | | | - IMAGING | | | | + + + + + documented in this encounter Visit Diagnoses + + | Diagnosis | + + | Status post total right knee replacement - Primary | + + documented in this encounter"
--- OUTSIDE RECORDS SUMMARY | ~2019-09-25 | XMS | Encounter Summary ---
Demographics + + + | Address | [address] | | | [place] [address] | + + + | Home Phone | | + + + | Preferred Language | Unknown | + + + | Marital Status | | + + + | Adventism Affiliation | 1027 | + + + | Race | Unknown | + + + | Ethnic Group | Unknown | + + + Author + + + | Author | [facility] | | | and [place] | + + + | Organization | [facility] | | | and [...] [place] | | | | | [address] | | + + + + + Care Team Providers + +------+ + | Care Motor Rebuilder Name | Role | Phone | + +------+ + PCP | Unavailable | + +------+ + Encounter Details +--------+ + + + + | Date | Type | Department | Care Team | Description | +--------+ + + + + | 03/29/ | Hospital | [facility] | | | | 1998 | Encounter | MED CTR LABORATORY | | | | | | [address] | | | | | | [place] | | | | | | [address] | | | | | | [phone] | | | +--------+ + + + [...]
--- OUTSIDE RECORDS SUMMARY | ~2019-09-25 | XMS | Encounter Summary ---
Demographics + + + | Address | [address] | | | [place] [address] | + + + | Home Phone | | + + + | Preferred Language | Unknown | + + + | Marital Status | | + + + | Restoration Affiliation | 1027 | + + + | Race | Unknown | + + + | Ethnic Group | Unknown | + + + Author + + + | Author | [facility] | | | and [place] | + + + | Organization | [facility] | | [...] [place] | | | | | [address] | | + + + + + Care Team Providers + +------+ + | Care Third Shift Lieutenant Name | Role | Phone | + +------+ + PCP | Unavailable | + +------+ + Encounter Details +--------+ + + + + | Date | Type | Department | Care Team | Description | +--------+ + + + + | 12/31/ | Hospital | [facility] | [place], | | | 1998 | Encounter | MED CTR GENERIC OP | MD [address] | | | | | CONV DEPT [address] | [place], [place] | | | | | [place], | [address] | | | | | [place] [address] | | | | | | [phone] | | | +--------+ + + + [...]
--- OUTSIDE RECORDS SUMMARY | ~2019-09-25 | XMS | Encounter Summary ---
Demographics + + + | Address | [address] | | | [place] [address] | + + + | Home Phone [...] [place] | | | | | [address] | | + + + + + Care Team Providers + +------+ + | Care General Superintendent Name | Role | Phone | + [...] | | | | | | | [place] | | | | | | | COLONOSCOPY | | | | | | | FLX DX | | | | | | | W/COLLJ SPEC | | | | | | | WHEN PFRMD | | | | | | | [place] | | | | | | | COLONOSCOPY | | | | | | | W/BIOPSY | | | | | | | SINGLE/MULTI | | | | | | | PLE [place] | | | | | | | [...] + + | 10/02/ | Hospital | [facility] | Bill Ferraro MD | Colon cancer | | 2015 | Encounter | MED CTR MP INTRA OP | [address] | screening (Primary | | | | [address] | [place], [place] | Dx) | | | | [place], [place] | [address] | | | | | [address] | [phone] | | | | | [phone] | | | +--------+ + + + [...] the physician who did your procedure at [phone] if you have any questions or experience any of the following: ? Increasing abdominal pain, nausea, or vomiting. ? Chills and fever over 101F. ? New abdominal swelling or bloating. ? Signs of rectal bleeding (black or red stool). If you cannot get a hold of your physician, then call the [facility] [phone] . If necessary, report to the Emergency Department at [facility]. Quit smoking: If you smoke or [...] better the chance of preventing its spread. 3883-1442 [employer]. [address] [place] [address]66. All righ ts reserved. This information is [...] | [facility] | | GastroenterologyPatient Name: Lebron AleajndroProcedure Date: 10/02/2014 8:30 | PROVATION | | AMMRN: [id number] #: [id number] of : 1960Admit | | | Type: AmbulatoryAge: 54Room: [place] [address]Gender: MaleNote Status: | | | FinalizedAttending MD: [...] the nurse | | | and the oil change technician in the pre-procedure area in the [...] | | | AMScope Out: 8:56:21 AM [facility], [address] | | | [place] [address] | | | - Regular diet. | [...] |Scope Out: 8:56:21 AM | | | [facility], [address] [place], [place] | | | [address] | | + + ---+ + +---------+ [...] POLYP SPECIMEN SOURCE: A. SIGMOID POLYP | [place] [facility] | | CLINICAL HISTORY: V76.51 (screening [...] Tubular adenoma (one fragment). | | | JVR:[facility]:C2NR GROSS DESCRIPTION: The specimen is labeled "Alejandro, | | | Lebron Anish" and designated "sigmoid polyp" on the requisition. Received | | | in formalin are two castro colored tissue fragments, 0.1-0.3 cm, all | | | into (A1). yt:JVR:[facility] PERFORMING LABORATORY: Tissue processing | | | and slide preparation were performed by [facility], [facility] [address] | | | [facility], [address], [place] [address] (Carton Liner: Jonathan | | | Parker Horton CLIA#: [id number]). Professional interpretation was | | | performed by Eldarion, [facility] | | | Branch, [address] [facility], [place] [address] (Carton Liner: | | | Jonathan Horton M.D.; CLIA#: [id number]). Diagnostician: Jonathan | | | Luis E [...]
--- OUTSIDE RECORDS SUMMARY | ~2019-09-25 | XMS | Encounter Summary ---
Demographics + + + | Address | [address] | | | [place] [address] | + + + | Home Phone | | + + + | Preferred Language | Unknown | + + + | Marital Status | | + + + | Oriental Orthodox Affiliation | 1027 | + + + | Race | Unknown | + + + | Ethnic Group | Unknown | + + + Author + + + | Author | [facility] | | | and [place] | + + + | Organization | [facility] | | [...] [place] | | | | | [address] | | + + + + + Care Team Providers + +------+ + | Care Fur Dressing Supervisor Name | Role | Phone | [...] | | viral | [address] | [address] | | | | | hepatitis C | [address] | [place], [place] | | | | | without | [place], | [address] [place] | | | | | hepatic coma | [place] [address] | [place], [place] | | | | | Old | Phone: | [address] Phone: | | | | | disruption | [phone] | [phone] | | | | | of anterior | Fax: | Fax: | | | | | cruciate | [phone] | [phone] | | | | | ligament | [...] + + | 10/15/ | Office | [facility] | [facility], | Chronic hepatitis C | | 2015 | Visit | GASTROENTEROLOGY | [address] | without hepatic coma | | | | [address] [place] | [place], [place] [address] | (HCC) (Primary Dx); | | | | [address] [place], [place] | [place] | Liver fibrosis; | | | | [address] | [address] | Left ear pain; | | | | [phone] | | Abnormal ultrasound | | | [...] Procedure: COLONOSCOPY; Surgeon: Bill Ferraro MD; Location: [facility] MEDICAL PROCEDURE UNI T Family History [...] developed and its performance characteristics determined by [facility]. It has not been cleared or approved by the Food and Drug Administration. The FDA has determined that such clearance or approval is not necessary. For questions regarding this report please contact customer service at . Testing Performed: [facility], [address] [place] [address], [address] AFP Tumor Marker 09/14/2014 1.7 0.6 - 6.6 ng/mL Final Reference range applies to males and non females. Testing Performed: [facility], [address], [place] [address] A1 ANTITRYPSIN SER 09/14/2014 130 100 - 200 mg/dL Final Testing Performed: [facility], [address], [place] [address] SANCHO Screen, Qual 09/14/2014 Negative NEG Final [...] Testing Performed: [facility], [address], [place] [address] NA 09/14/2014 135* 136-149 mmol/L Final K [...] Testing Performed: [address], [place] [address] Hepatitis A Ab IgM 09/14/2014 Non Reactive NR Final Testing Performed: [address], [place] [address] Hepatitis Interpretation: 09/14/2014 See Comments Final Consistent with remote past HAV infection. Testing Performed: [address], [place] [address] Hepatitis B Core Ab IgM 09/14/2014 Non Reactive NR Final Testing Performed: [address], [place] [address] Hepatitis B Surface Ab 09/14/2014 51.8 Final <10.0 Non Immune 10.0 or greater Indicates vaccine response or response to HBV infection. Samples with a calculated value of 10 mIU/mL or greater are considered reactive (protective) in accordance with the CDC guidelines. Testing Performed: [address], [place] [address] Hepatitis B Surface Ag 09/14/2014 Non Reactive NR Final Testing Performed: [address], [place] [address] IRON 09/14/2014 171* 50-160 ug/dL Final TRANSFERRIN 09/14/2014 265.0 240.0-480.0 mg/dL Final TIBC 09/14/2014 371 Final % SATURATION 09/14/2014 46.1 Final MITOCHONDRIAL AB 09/14/2014 See Comments NEG Final Negative Reference range: <1:20 Testing Performed: [address], [place] [address] PROTIME 09/14/2014 13.5 11.3-13.9 seconds Final INR 09/14/2014 1.03 0.90-1.10 Final Usual Oral Anticoagulation Range: 2.0 - 3.0 High Level Oral Anticoagulation Range: 2.5 - 3.5 Smooth Muscle Ab 09/14/2014 See Comments NEG Final Negative Reference Range: <1:40 Testing Performed: [address], [place] [address] HCV Viral Load, log10 09/14/2014 6.8* NOTDET Log IU/mL Final HCV Viral Load 09/14/2014 [id number]* NOTDET IU/mL Final Reportable range HCV RNA 1.2 to 8.0 Log IU/mL (15 to 100,000,000 IU/mL). This assay was performed using the FDA approved Ave MARILYNN AmpliPrep/MARILYNN TaqMan HCV Test, v2.0. The MARILYNN AmpliPrep/MARILYNN TaqMan HCV Test, v2.0 is not intended for use as a screening test for the presence of HCV in blood or blood products. Testing Performed: [address], [place] [address] HCV Genotype by PCR 09/14/2014 See Comments Final Type 1a HCV genotype was determined by RT-PCR and ferrocene labelled probe. This assay detects and differentiates the 6 major HCV genotypes and their most common subtypes (1a, 1b, 2a/c, 2b, 3, 4, 5, 6). This test was developed and its performance characteristics determined by [facility] Division of Laboratory Medicine. It has not been approved or cleared by the U.S. Food and Drug Administration. This test should not be regarded as investigational or for research use. Testing Performed: [address], [place] [address] Abdominal ultrasound 08/17/2014: IMPRESSION - No focal [...]
--- OUTSIDE RECORDS SUMMARY | ~2019-09-25 | XMS | Encounter Summary ---
Demographics + + + | Address | [address] | | | [place] [address] | + + + | Home Phone | | + + + | Preferred Language | Unknown | + + + | Marital Status | | + + + | Adventist Affiliation | 1027 | + + + | Race | Unknown | + + + | Ethnic Group | Unknown | + + + Author + + + | Author | [facility] | | | and [place] | + + + | Organization | [facility] | | | [...] [place] | | | | | [address] | | + + + + + Care Team Providers + +------+ + | Care Bus Driver/Monitor Name | Role | Phone | + +------+ + PCP | Unavailable | + +------+ + Encounter Details +--------+ + + + + | Date | Type | Department | Care Team | Description | +--------+ + + + + | 10/29/ | Hospital | [facility] | | | | 2002 | Encounter | MED CTR LABORATORY | | | | | | [address] | | | | | | [place] | | | | | | [address] | | | | | | [phone] | | | +--------+ + + + [...]
--- OUTSIDE RECORDS SUMMARY | ~2019-09-25 | XMS | Encounter Summary ---
Demographics + + + | Address | [address] | | | [place] [address] | + + + | Home Phone [...] [place] | | | | | [address] | | + + + + + Care Team Providers + +------+ + | Care Dental Manager Name | Role | Phone | + +------+ + | Jhonny Jimenez MD | PCP | | + +------+ + Encounter Details +--------+ + + + + | Date | Type | Department | Care Team | Description | +--------+ + + + + | 09/05/ | Abstract | [facility] [place] | [facility], | | | 2014 | | GASTROENTEROLOGY | [address] | | | | | [address] [place] | [place], [place] [address] | | | | | [address] [place], [place] | [place], [place] | | | | | [address] | [address] | | | | | [phone] | | | +--------+ + + + [...] St | [place] | | | [facility] | | [address], [facility] | | | - LABORATORY | | [...] | | | Quantitativ | | | [facility] | | | e Log | | | MEDICAL | | | | | | CENTER - | | | | | | LABORATORY | | + +---------+ + + + | HCV | [phone] | | [facility] | | | Quantitativ | | | [facility] | | | e | | | [...] [address]. | | | | | [facility] | | | | | - LABORATORY [...] [facility] | | | | [facility] | | | | | - LABORATORY | | | | + +---------+ + + documented in this encounter Visit Diagnoses Not on filedocumented in this encounter"
--- OUTSIDE RECORDS SUMMARY | ~2019-09-25 | XMS | Encounter Summary ---
Demographics + + + | Address | [address] | | | [place] [address] | + + + | Home Phone [...] [place] | | | | | [address] | | + + + + + Care Team Providers + +------+ + | Care Contracts Paralegal Name | Role | Phone | + +------+ + PCP | Unavailable | + +------+ + Encounter Details +--------+ + + + + | Date | Type | Department | Care Team | Description | +--------+ + + + + | 04/19/ | Hospital | [facility] | | | | 1998 - | Encounter | MED CTR OP REHAB | | | | | | [address] | | | | 06/10/ | | [place] [address] | | | | 1999 | | [phone] | | | +--------+ + + + [...]
--- OUTSIDE RECORDS SUMMARY | ~2019-09-25 | XMS | Encounter Summary ---
Demographics + + + | Address | [address] | | | [place] [address] | + + + | Home Phone | | + + + | Preferred Language | Unknown | + + + | Marital Status | | + + + | Yarsani Affiliation | 1027 | + + + | Race | Unknown | + + + | Ethnic Group | Unknown | + + + Author + + + | Author | [facility] | | | and [place] | + + + | Organization | [facility] | | | [...] [place] | | | | | [address] | | + + + + + Care Team Providers + +------+ + | Care Tyre Finisher And Examiner Name | Role | Phone | + +------+ + | Jhonny Jimenez MD | PCP | | + +------+ + Reason for Visit + + + | Reason | Comments | + + + | Hospital Follow-up | | + + + Encounter Details +--------+ + + + + | Date | Type | Department | Care Team | Description | +--------+ + + + + | 09/13/ | Telephone | [facility] | Dona Lyle, | Hospital Follow-up | | 2015 | | MED CTR PHARMACY | PharmD [address] | | | | | [address] [place] | [address] [place] | | | | | [place] [address] | [place] [address] | | | | | [phone] | [phone] | | +--------+ + + + + [...] documented as of this encounter Progress Notes Dona Lyle PharmD - 09/14/2015 2:54 PM [facility]ospital Follow-Up Phone Call Date discharged: 09/11/15 Date of Procedure: 09/08/15 Procedure Performed: R TKA Education done/topics reviewed: 1. Health Status - "Things are very well. Thanks for calling!" At this point call cut out. Attempted to call back but line was very static-y and cutting in and out. Called back again and left callback number for rest of follow-up. Date of follow-up appointment with surgeon: 09/[address] Steward. Phone call made by: Electronically signed by: Dona Lyle PHARMD 09/14/2015 15:00 documented in thi s encounter Plan of Treatment Not on filedocumented as of this encounter Visit Diagnoses Not on filedocumented in this encounter
--- OUTSIDE RECORDS SUMMARY | ~2019-09-25 | XMS | Encounter Summary ---
Demographics + + + | Address | [address] | | | [place] [address] | + + + | Home Phone | | + + + | Preferred Language | Unknown | + + + | Marital Status | | + + + | Tenriism Affiliation | 1027 | + + + [...] [place] | | | | | [address] | | + + + + + Care Team Providers + +------+ + | Care Heel Sewer Name | Role | Phone | + [...] Description | +--------+--------+ + + + | 09/28/ | Refill | [facility] [place] | Agus Steward, | Medication Refill | | 2015 | | ORTHOPEDIC SURGERY | [address] | | | | | [address] [facility] | [place], [place] | | | | | [place], [place] | [address] | | | | | [address] | | | | | | [phone] | | | +--------+--------+ + + + [...]
--- OUTSIDE RECORDS SUMMARY | ~2019-09-25 | XMS | Encounter Summary ---
Demographics + + + | Address | [address] | | | [place] [address] | + + + | Home Phone [...] [place] | | | | | [address] | | + + + + + Care Team Providers + +------+ + | Care Furnace Process Supervisor Name | Role | Phone | [...] + + | 09/20/ | Office | [facility] | Agus Steward, | Postop check | | 2016 | Visit | ORTHOPEDIC SURGERY | [address] [place] [address] | (Primary Dx) | | | | [address] [place] [address] | [facility] | | | | | [place] | [address] | | | | | [address] | | | | | | [phone] | | | +--------+---------+ + + + [...]
--- OUTSIDE RECORDS SUMMARY | ~2019-09-25 | XMS | Clinical Summary ---
Demographics + + + | Address | [address] | | | [place] [address] | + + + | Home Phone [...] [place] | | | | | [address] | | + + + + + Care Team Providers + +------+ + | Care Polisher Apprentice Name | Role | Phone | [...] | | 12/12/ | 00-111 | | [id number]: Qty: 2 on | c | Knee | ZIM | | 2019 | 2-140- | | 2015 by Agus Steward | | | | | | 01 / | | MD [place] at [facility] | | | | | | /[address] | | [facility] | | | | | | 447 | + +--------+--------+ +--------+--------+--------+ | Imp Knee Surf [facility] R 10 | Generi | Right: | [place] - | | 01/12/ | [address] | | 8-11gh - [id number]: | c | Knee | ZIM | | 2019 | [address] | | Qty: 1 on 2015 by | | | | | | / | | Agus Steward MD at [facility] | | | | | | /[id number] | | [facility] | | | | | | 829 | | [place] | | | | | | | + +--------+--------+ +--------+--------+--------+ | Imp Knee Fem Stem 0d Rt Sz10 | Generi | Right: | MALINDA - | | 07/12/ | 42-502 | | - [id number]: Qty: 1 | c | Knee | ZIMM | | 2025 | 6-068- | | on 2015 by Bin, | | | | | | 02 / | | Agus Wong MD at [facility] | | | | | | /[address] | | [facility] | | | | | | 859 | + +--------+--------+ +--------+--------+--------+ | Imp Knee Tib 5deg Rt Szg - | Generi | Right: | MALINDA - | | 08/12/ | 42-532 | | [id number]: Qty: 1 on | c | Knee | ZIMM | | 2025 | 0-079- | | 2015 by Agus Steward | | | | | | 02 / | | MD [place] at [facility] | | | | | | /[address] | | [facility] | | | | | | 791 | + +--------+--------+ +--------+--------+--------+ | Imp Knee Ptela Polyeth 38mm - | Generi | Right: | MALINDA - | | / | 42-540 | | [id number]: Qty: 1 | c | Knee | ZIMM | | 2024 | 0-000- | | on 2015 by Bin, | | | | | | 38 / | | Agus Wong MD at [facility] | | | | | | /[address] | | [facility] | | | | | | [address] | [place] | [phone] | | [facility] | | [address] | | | - LABORATORY | | [...] ST. | [address] | [place], [place] | [phone] | | [facility] | | [address] | | | - LABORATORY | | [...] | | | | | | [facility] [place] | | [...] [address] | [place] | [phone] | | [facility] | | [address] | | | - LABORATORY | | [...] + | [facility] | [address] | [place] | [phone] | | [facility] | | [address] | | | - LABORATORY | | [...] [address] | [place] | [phone] | | [facility] | | [address] | | | - LABORATORY | | | | + + + + + Salicylate Level (07/23/2019 8:17 PM PDT) + +-------+ + + + | Component | Value | Ref Range | Performed | Pathologist | | | | | At | Signature | + +-------+ + + + | Salicylate | <3.0 | <30.1 mg/dL | [facility] | | | Level | | | [facility] | | | | | | MEDICAL | | | | | | CENTER - | | | | | | LABORATORY | | + +-------+ + + + + + | Specimen | + + | Blood | + + + + + + + | Performing | Address | City/State/[facility] | Phone Number | | Organization | | | | + + + + + | [facility] | [address] | [place] | [phone] | | [facility] | | [address] | | | - LABORATORY | | [...] 22 | 9 - 23 mg/dL | [facility] | | | | | | [facility] | | | | | | MEDICAL | | | | | | CENTER - | | | | | | LABORATORY | | + + + + + + | Creatinine | 1.52 (H) | 0.70 - 1.30 | [facility] | | | | | mg/dL | [facility] | | | | | | MEDICAL | | | | | | CENTER - | | | | | | LABORATORY | | + + + + + + | eGFR if not | 48 (L)Comment: | >=60 | [facility] | | | | GLOMERULAR FILTRATION | mL/min/1.73m2 | [facility] | | | CONGOLESE | RATE,ESTIMATED | | MEDICAL | | | | mL/min/1.90v8Ofmx than | | CENTER - | | [address] | [place] | [phone] | | [facility] | | [address] | | | - LABORATORY | | [...] +--------+ +---------+------+ | RAHEEL | EDWIN | [phone] | 12/14/19 | [phone] | | PPO [...] al/Fam | | 1961 | [phone] | [place], [place] | | | [place] | | | 4 (Home) | [address] | + +--------+ +--------+ + + Advance Directives + + + + + | Type | Date Recorded | Patient | Explanation | | | | Dredge Hand | | + + + + + | Power of | | | | | Police Justice | | | | + + + [...]
--- OUTSIDE RECORDS SUMMARY | ~2019-09-25 | XMS | Encounter Summary ---
Demographics + + + | Address | [address] | | | [place] [address] | + + + | Home Phone | | + + + | Preferred Language | Unknown | + + + | Marital Status | | + + + | Christianity Affiliation | 1027 | + + + [...] [place] | | | | | [address] | | + + + + + Care Team Providers + +------+ + | Care Yarn Salvager Name | Role | Phone | + +------+ + PCP | Unavailable | + +------+ + Encounter Details +--------+ + + + + | Date | Type | Department | Care Team | Description | +--------+ + + + + | 02/15/ | Hospital | [facility] | [place], | | | 1999 | Encounter | MED CTR GENERIC OP | MD [address] | | | | | CONV DEPT [address] | [place], [place] | | | | | [place], | [address] | | | | | [place] [address] | | | | | | [phone] | | | +--------+ + + + [...]
--- OUTSIDE RECORDS SUMMARY | ~2019-09-25 | XMS | Encounter Summary ---
Demographics + + + | Address | [address] | | | [place] [address] | + + + | Home Phone [...] + | Author | [facility] | | | and [place] | + + + | Organization | [facility] | | | and [...] [place] | | | | | [address] | | + + + + + Care Team Providers + +------+ + | Care Cardroom Worker Name | Role | Phone | + +------+ + PCP | Unavailable | + +------+ + Encounter Details +--------+ + + + + | Date | Type | Department | Care Team | Description | +--------+ + + + + | 08/28/ | Hospital | [facility] | | | | 2002 | Encounter | MED CTR LABORATORY | | | | | | [address] | | | | | | [place] | | | | | | [address] | | | | | | [phone] | | | +--------+ + + + [...]
--- OUTSIDE RECORDS SUMMARY | ~2019-09-25 | XMS | Encounter Summary ---
Demographics + + + | Address | [address] | | | [place] [address] | + + + | Home Phone [...] [place] | | | | | [address] | | + + + + + Care Team Providers + +------+ + | Care Cooker Syrup Name | Role | Phone | + +------+ + PCP | Unavailable | + +------+ + Encounter Details +--------+ + + + + | Date | Type | Department | Care Team | Description | +--------+ + + + + | 01/29/ | Hospital | [facility] | | | | 1998 | Encounter | MED CTR XRAY [address] | | | | | | [address] | | | | | | [place] [address] | | | | | | [phone] | | | +--------+ + + + [...]
--- OUTSIDE RECORDS SUMMARY | ~2019-09-25 | XMS | Encounter Summary ---
Demographics + + + | Address | [address] | | | [place] [address] | + + + | Home Phone | | + + + | Preferred Language | Unknown | + + + | Marital Status | | + + + | Yazdanism Affiliation | 1027 | + + + [...] [place] | | | | | [address] | | + + + + + Care Team Providers + +------+ + | Care Information Systems Architect Name | Role | Phone | + +------+ + PCP | Unavailable | + +------+ + Encounter Details +--------+ + + + + | Date | Type | Department | Care Team | Description | +--------+ + + + + | 09/27/ | Hospital | [facility] | | | | 2002 | Encounter | MED CTR LABORATORY | | | | | | [address] | | | | | | [place] | | | | | | [address] | | | | | | [phone] | | | +--------+ + + + [...]
--- OUTSIDE RECORDS SUMMARY | ~2019-09-25 | XMS | Encounter Summary ---
Demographics + + + | Address | [address] | | | [place] [address] | + + + | Home Phone | | + + + | Preferred Language | Unknown | + + + | Marital Status | | + + + | Jainism Affiliation | 1027 | + + + | Race | Unknown | + + + | Ethnic Group | Unknown | + + + Author + + + | Author | [facility] | | | and [place] | + + + | Organization | [facility] | | | [...] [place] | | | | | [address] | | + + + + + Care Team Providers + +------+ + | Care Consulting Business Developer Name | Role | Phone | + +------+ + | Jhonny Jimenez MD | PCP | | + +------+ + Encounter Details +--------+ + + + + | Date | Type | Department | Care Team | Description | +--------+ + + + + | 03/16/ | Hospital | [facility] | Jhonny Jimenez MD | Chronic hepatitis C | | 2018 | Encounter | MED CTR ULTRASOUND | [address] | without hepatic coma | | | | [address] [place] | [place], [place] | (HCC) | | | | [facility], [place] | [address] | | | | | [address] | | | | | | [phone] | | | +--------+ + + + [...]
--- OUTSIDE RECORDS SUMMARY | ~2019-09-25 | XMS | Encounter Summary ---
Demographics + + + | Address | [address] | | | [place] [address] | + + + | Home Phone [...] [place] | | | | | [address] | | + + + + + Care Team Providers + +------+ + | Care Meat Inspector Name | Role | Phone | + +------+ + PCP | Unavailable | + +------+ + Encounter Details +--------+ + + + + | Date | Type | Department | Care Team | Description | +--------+ + + + + | 08/28/ | Hospital | [facility] | | | | 2002 | Encounter | MED CTR LABORATORY | | | | | | [address] | | | | | | [place] | | | | | | [address] | | | | | | [phone] | | | +--------+ + + + [...]
--- OUTSIDE RECORDS SUMMARY | ~2019-09-25 | XMS | Encounter Summary ---
Demographics + + + | Address | [address] | | | [place] [address] | + + + | Home Phone | | + + + | Preferred Language | Unknown | + + + | Marital Status | | + + + | Moravian Affiliation | 1027 | + + + | Race | Unknown | + + + | Ethnic Group | Unknown | + + + Author + + + | Author | [facility] | | | and [place] | + + + | Organization | [facility] | | | [...] [place] | | | | | [address] | | + + + + + Care Team Providers + +------+ + | Care Hot Metal Car Operator Name | Role | Phone | [...] 2015 | | ORTHOPEDIC SURGERY | [address] | | | | | [address] | [place], [place] | | | | | [place], [place] | [address] | | | | | [address] | | | | | | [phone] | | | +--------+--------+ + + + [...]
--- OUTSIDE RECORDS SUMMARY | ~2019-09-25 | XMS | Encounter Summary ---
Demographics + + + | Address | [address] | | | [place] [address] | + + + | Home Phone [...] [place] | | | | | [address] | | + + + + + Care Team Providers + +------+ + | Care Supervisor Turkey Farm Name | Role | Phone | + [...] + + | 09/13/ | Telephone | [facility] | Dona Lyle, | Hospital Follow-up | | 2015 | | MED CTR PHARMACY | PharmD [address] | | | | | [address] [place] | [address] | | | | | [place] [address] | [place] [address] | | | | | [phone] | [phone] | | +--------+ + + + + [...] Date of follow-up appointment with surgeon: 09/[address] Steward. Phone call made by: Electronically signed by: Dona Lyle PHARMD 09/14/2015 15:00 documented in thi s encounter Plan of Treatment Not on filedocumented as of this encounter Visit Diagnoses Not on filedocumented in this encounter
--- OUTSIDE RECORDS SUMMARY | ~2019-09-25 | XMS | Encounter Summary ---
Demographics + + + | Address | [address] | | | [place] [address] | + + + | Home Phone | | + + + | Preferred Language | Unknown | + + + | Marital Status | | + + + | Taoist Affiliation | 1027 | + + + | Race | Unknown | + + + | Ethnic Group | Unknown | + + + Author + + + | Author | [facility] | | | and [place] | + + + | Organization | [facility] | | [...] [place] | | | | | [address] | | + + + + + Care Team Providers + +------+ + | Care Client Retention Specialist Name | Role | Phone | [...] | | | | | | | DC TOTAL | | | | | | [...] | | | | | [address] | [place] | | | | | [place] | [address] | | | | | [address] | | | | | | [phone] | | | +--------+ + + + [...] +----+---+ + + | | 1 | Martinez | | | | 4 | 43-degrees [...] +----+---+ + + | | 1 | Martinez off | | | | 6 | [...] + + | Periph | 09/08/15; 1321; [email or web address] | 09/08/15 1321 by | 09/11/15 0944 [...] - | 08/07/18 (Completed/Removed by | Collin Corimer RN | User Epic | | | [...] | | | Performing provider: JACQUES LUIS Construction Administrator: SMITH Hinojosa | | | Electronically Signed [...] provider: MIKKI | | | JACQUES Haines Construction Administrator: Gokul Burnett, AT Electronically Signed | | [...] | | | Performing provider: JACQUES LUIS Construction Administrator: SMITH Hinojosa | | | Electronically Signed by: Jacques Luis MD | | | ESig date/time: 2015 14:59 Perineural | | | Procedure Note 2015 14:28 Nerve block: femoral Laterality: | | | right Provider requested procedure: [place] Indication: | | | postoperative analgesia Preprocedure [...] provider: MIKKI, | | | JACQUES Haines Construction Administrator: Gokul Burnett, AT Electronically Signed | | [...]
--- OUTSIDE RECORDS SUMMARY | ~2019-09-25 | XMS | Encounter Summary ---
Demographics + + + | Address | [address] | | | [place] [address] | + + + | Home Phone | | + + + | Preferred Language | Unknown | + + + | Marital Status | | + + + | Restorationism Affiliation | 1027 | + + + [...] [place] | | | | | [address] | | + + + + + Care Team Providers + +------+ + | Care Boarding House Manager Name | Role | Phone | + +------+ + PCP | Unavailable | + +------+ + Encounter Details +--------+ + + + + | Date | Type | Department | Care Team | Description | +--------+ + + + + | 01/29/ | Hospital | [facility] | | | | 1998 | Encounter | MED CTR XRAY [address] | | | | | | [address] | | | | | | [place] [address] | | | | | | [phone] | | | +--------+ + + + [...]
--- OUTSIDE RECORDS SUMMARY | ~2019-09-25 | XMS | Encounter Summary ---
Demographics + + + | Address | [address] | | | [place] [address] | + + + | Home Phone | | + + + | Preferred Language | Unknown | + + + | Marital Status | | + + + | Pentecostal Affiliation | 1027 | + + + [...] [place] | | | | | [address] | | + + + + + Care Team Providers + +------+ + | Care Loading Machine Operator Name | Role | Phone | + +------+ + | Jhonny Jimenez MD | PCP | | + +------+ + Encounter Details +--------+ + + + + | Date | Type | Department | Care Team | Description | +--------+ + + + + | 10/13/ | Hospital | [facility] | Agus Steward, | Status post total | | 2016 | Encounter | MED CTR SUSAN XRAY | MD [address] | right knee | | | | [address] [place] | [place], [place] | replacement | | | | [place], [place] | [address] | | | | | [address] | | | | | | [phone] | | | +--------+ + + + [...] + | [address] | [address] | [place] | [phone] | | [facility] | | [address] | | | - IMAGING | | | | + + + + + documented in this encounter Visit Diagnoses + + | Diagnosis | + + | Status post total right knee replacement | + + documented in this encounter"
--- OUTSIDE RECORDS SUMMARY | ~2019-09-25 | XMS | Encounter Summary ---
Demographics + + + | Address | [address] | | | [place] [address] | + + + | Home Phone | | + + + | Preferred Language | Unknown | + + + | Marital Status | | + + + | Yazdanism Affiliation | 1027 | + + + | Race | Unknown | + + + | Ethnic Group | Unknown | + + + Author + + + | Author | [facility] | | | and [place] | + + + | Organization | [facility] | | | [...] [place] | | | | | [address] | | + + + + + Care Team Providers + +------+ + | Care Garment Liner Name | Role | Phone | + +------+ + PCP | Unavailable | + +------+ + Encounter Details +--------+ + + + + | Date | Type | Department | Care Team | Description | +--------+ + + + + | 02/15/ | Hospital | [facility] | Kenia Cary, | | | 1999 | Encounter | MED CTR GENERIC OP | MD [address] | | | | | CONV DEPT [address] | [place], [place] | | | | | [place], | [address] | | | | | [place] [address] | | | | | | [phone] | | | +--------+ + + + [...]
--- OUTSIDE RECORDS SUMMARY | ~2019-09-25 | XMS | Encounter Summary ---
Demographics + + + | Address | [address] | | | [place] [address] | + + + | Home Phone [...] [place] | | | | | [address] | | + + + + + Care Team Providers + +------+ + | Care Life Insurance Specialist Name | Role | Phone | [...] | Essential | | | | [address] | [place] | hypertension, | | | | [place] | [address] | hypertension with | | | | [address] | | unspecified goal; | | | | [phone] | | Primary | | | | [...]
[2019-09-25] MEDS ORDERED: LISINOPRIL40 MG PO (11:40)
[2019-09-25] MEDS ORDERED: HYDROCODON-ACE1 EA13 PO (11:59)
[2019-09-25] MEDS ORDERED: CEPHALEXIN500 MG PO (11:59)
== END 2019-09-25 12:22 | disposition home or self-care (01) ==
LOC: ED 11:32
PROC: 0XQRXZZ Repair Left Middle Finger, External Approach (ICD-10-PCS; principal; 2019-09-25)
DX: S61.213A Laceration without foreign body of left middle finger without damage to nail, initial encounter (principal); I10 Essential (primary) hypertension; Z79.899 Other long term (current) drug therapy; W27.0XXA Contact with workbench tool, initial encounter
CPT/HCPCS: 12002; 99282-25; A9270